=== PATIENT | female | born 1990 | race Caucasian/White ===

== ENCOUNTER 2018-06-28 04:28 | Inpatient (IN) | payer BC, MEDICAID ==
[2018-06-28] MEDS ORDERED: Sodium Chloride 0.9% 10 ML Syringe FLUSH PRN (04:39)
[2018-06-28] MEDS ORDERED: Carboprost Tromethamine 250 MCG/1 ML Amp IM PRN (04:39)
[2018-06-28] MEDS ORDERED: Water For Irrigation,Sterile 1,000 ML Container IRR PRN (04:39)
[2018-06-28] MEDS ORDERED: Butorphanol 1 MG/ML SDV IVPUSH PRN (04:39)
[2018-06-28] MEDS ORDERED: Lidocaine 1% 50 ML MDV INJECT PRN (04:39)
[2018-06-28] MEDS ORDERED: Methylergonovine 0.2 MG/1 ML Amp IM PRN (04:39)
[2018-06-28] MEDS ORDERED: Terbutaline 1 MG/ML SDV SUBCUT PRN (04:39)
[2018-06-28] MEDS ORDERED: Misoprostol 200 MCG Tab PO PRN (04:39)
[2018-06-28] MEDS ORDERED: Sodium Chloride 0.9% 2.5 ML Syringe FLUSH PRN (04:39)
[2018-06-28] MEDS ORDERED: Tranexamic Acid 1,000 MG in Sodium Chloride 0.9% 100 ML IV PRN (04:39)
[2018-06-28] MEDS ORDERED: Oxytocin/0.9 % Sodium Chloride 30 UNIT/500 ML BAG IV SCH ×2 (04:45)
[2018-06-28] MEDS ORDERED: Misoprostol 25 MCG (1/4 of 100 MCG) Tab VAG PRN (05:30)
[2018-06-28] MEDS ORDERED: Labetalol 100 MG Tab PO SCH (09:00)
[2018-06-28] MEDS: Labetalol 100 MG Tab PO SCH ×2 (09:07→21:48)
[2018-06-28] MEDS: Lactated Ringers 1,000 ML IV SCH ×2 (11:45→17:51)
[2018-06-28] MEDS: Nalbuphine 10 MG/1 ML Vial IVPUSH PRN ×2 (13:33→17:48)
--- NOTE | 2018-06-28 18:36 | PCM.PREANE ---
Preanesthetic Assessment - Anesthesia/Transfusion/Family Hx Anesthesia History: Prior Anesthesia Without Reaction Transfusion History: No Prior Transfusion(s) - Review of Systems General: No Symptoms Pulmonary: No Symptoms Cardiovascular: No Symptoms Gastrointestinal: No Symptoms Neurological: No Symptoms Other: Reports: None - Physical Assessment Pulse: 84 Blood Pressure: 118/75 Vital Signs: Last Vital Signs Temp Pulse 84 06/28/18 09:07 Resp BP 118/75 06/28/18 09:07 Pulse Ox Height: 5 ft 2.5 in Weight: 78.471 kg ASA Class: 2 Mental Status: Alert & Oriented x3 Airway Class: Mallampati = 2 Dentition: Reports: Normal Dentition Thyro-Mental Finger Breadths: 3 Mouth Opening Finger Breadths: 3 ROM/Head Extension: Full Lungs: Clear to Auscultation, Normal Respiratory Effort Cardiovascular: Regular Rate, Regular Rhythm - Lab Values: Laboratory Last Values WBC 10.03 K/uL (4.0-11.0) 06/28/18 06:30 RBC 3.68 M/uL (4.30-5.90) L 06/28/18 06:30 Hgb 10.7 g/dL (12.0-16.0) L 06/28/18 06:30 Hct 32.9 % (36.0-46.0) L 06/28/18 06:30 MCV 89.4 fL (80.0-98.0) 06/28/18 06:30 MCH 29.1 pg (27.0-32.0) 06/28/18 06:30 MCHC 32.5 g/dL (31.0-37.0) 06/28/18 06:30 RDW Std Deviation 41.7 fl (28.0-62.0) 06/28/18 06:30 RDW Coeff of David 13 % (11.0-15.0) 06/28/18 06:30 Plt Count 297 K/uL (150-400) 06/28/18 06:30 MPV 9.90 fL (7.40-12.00) 06/28/18 06:30 Nucleated RBC % 0.0 /100WBC 06/28/18 06:30 Nucleated RBCs # 0 K/uL 06/28/18 06:30 Blood Type A POSITIVE 06/28/18 06:30 Antibody Screen NEGATIVE 06/28/18 06:30 - Allergies Allergies/Adverse Reactions: Allergies Allergy/AdvReac Type Severity Reaction Status Date / Time NSAIDS (Non-Steroidal Allergy Swollen Verified 07/07/14 16:54 Anti-Inflamma Eyes - Acknowledgements Anesthesia Type Planned: Epidural Pt an Appropriate Candidate for the Planned Anesthesia: Yes Alternatives and Risks of Anesthesia Discussed w Pt/Guardian: Yes Pt/Guardian Understands and Agrees with Anesthesia Plan: Yes PreAnesthesia Questionnaire HEENT History: Reports: Cataract, Impaired Vision Cardiovascular History: Reports: Hypertension Respiratory History: Reports: None Gastrointestinal History: Reports: None Genitourinary History: Reports: Other (See Below) Other Genitourinary History: hydronephrosis 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 CATCHER History: Reports: Hyperemesis, : 5 Para: 3 LMP (Approximate): Musculoskeletal History: Reports: None Neurological History: Reports: Concussion, Migraines Psychiatric History: Reports: Anxiety, Panic Attack Endocrine/Metabolic History: Reports: Obesity/BMI 30+ Hematologic History: Reports: Anemia Immunologic History: Reports: None Oncologic (Cancer) History: Reports: None Dermatologic History: Reports: None - Infectious Disease History Infectious Disease History: Reports: Chicken Pox, Influenza - Past Surgical History HEENT Surgical History: Reports: Oral Surgery Female Surgical History: Reports: Other (See Below) Other Female Surgeries/Procedures: cyst removed laparoscopy - SUBSTANCE USE Smoking Status *Q: Former Smoker Tobacco Use Within Last Twelve Months: Cigarettes Second Hand Smoke Exposure: No Recreational Drug Use History: No - HOME MEDS Home Medications: Home Meds Acetaminophen [Tylenol Extra Strength] 1,000 mg PO Q4H PRN #30 tab 10/15/14 [Rx] Escitalopram Oxalate 10 mg PO DAILY 06/15/18 [History] Famotidine [Pepcid] 20 mg PO DAILY 06/15/18 [History] Labetalol [Normodyne] 200 mg PO BID 06/15/18 [History] Ondansetron [Zofran ODT] 4 mg PO TID PRN 06/15/18 [History] hydrOXYzine pamoate [Vistaril] 50 mg PO BEDTIME 06/15/18 [History] Iron Polysaccharide Complex [Poly-Iron] 1 cap PO DAILY 06/28/18 [History] - CURRENT (IN HOUSE) MEDS Current Meds: Current Medications Butorphanol Tartrate (Stadol) 1 mg IVPUSH Q1H PRN PRN Reason: Pain Carboprost Tromethamine (Hemabate Ds) 250 mcg IM ASDIRECTED PRN PRN Reason: Post Hemorrhage Lactated Ringer's (Ringers, Lactated) 1,000 mls @ 150 mls/hr IV ASDIRECTED [facility] Last Admin: 06/28/18 17:51 Dose: 150 mls/hr Oxytocin/Sodium Chloride (Oxytocin 30 Unit/500 Ml-Ns) 30 unit in 500 mls @ 250 mls/hr IV TITRATE [facility] Oxytocin/Sodium Chloride (Oxytocin 30 Unit/500 Ml-Ns) 30 unit in 500 mls @ 2 mls/hr IV TITRATE [facility]; Protocol Last Titration: 06/28/18 18:00 Dose: 24 munits/min, 24 mls/hr Tranexamic Acid 1,000 mg/ (Sodium Chloride) 110 mls @ 660 mls/hr IV ONETIME PRN PRN Reason: Bleeding Labetalol HCl (Normodyne) 200 mg PO BID [facility] Last Admin: 06/28/18 09:07 Dose: 200 mg Lidocaine HCl (Xylocaine 1%) 50 ml INJECT .ONCE PRN PRN Reason: Laceration repair Methylergonovine Maleate (Methergine) 0.2 mg IM ASDIRECTED PRN PRN Reason: Post Hemorrhage Misoprostol (Cytotec) 200 mcg PO .ONCE PRN PRN Reason: Post Hemorrhage Misoprostol (Cytotec) 25 mcg VAG Q4H PRN PRN Reason: Cervical Ripening Last Admin: 06/28/18 07:45 Dose: 25 mcg Nalbuphine HCl (Nubain) 10 mg IVPUSH Q1H PRN PRN Reason: Pain (severe 7-10) Last Admin: 06/28/18 17:48 Dose: 10 mg Sodium Chloride (Saline Flush) 10 ml FLUSH ASDIRECTED PRN PRN Reason: Keep Vein Open Sodium Chloride (Saline Flush) 2.5 ml FLUSH ASDIRECTED PRN PRN Reason: Keep Vein Open Sterile Water (Sterile Water For Irrigation) 1,000 ml IRR ASDIRECTED PRN PRN Reason: delivery Terbutaline Sulfate (Brethine) 0.25 mg SUBCUT ASDIRECTED PRN PRN Reason: Tacysystole Discontinued Medications Labetalol HCl (Normodyne) 400 mg PO BID [facility]
--- NOTE | 2018-06-28 22:07 | PCM.DEL ---
L & D Note - General Info Date of Service: 06/28/18 Mother's Due Date: 07/08/18 - Delivery Note Labor: Induced by Oxytocin Cervical Ripening Method: Misoprostil Delivery Outcome: Livebirth Infant Delivery Method: Spontaneous Vaginal Delivery-Single Presentation: Left Occiput Anterior (CASEY) Nuchal Cord: None Prep: Other Anesthesia Type: None Amniotic Fluid Description: Clear Episiotomy Type: None Laceration: None Placenta: Intact, Spontaneous Cord: 3 Vessels Score 1 min: 8 Score 5 min: 8 Second Stage Interventions: Reports: Encouragement Given, Pushing, Pulls Own Legs Back - General Info Date of Service: 06/28/18 - Patient Data Vitals - Most Recent: Last Vital Signs Temp Pulse 76 06/28/18 21:48 Resp BP 124/72 06/28/18 21:48 Pulse Ox Weight - Most Recent: 78.471 kg Lab Results Last 24 Hours: Laboratory Results - last 24 hr 06/28/18 06/28/18 Range/Units 06:30 06:30 WBC 10.03 (4.0-11.0) K/uL RBC 3.68 L (4.30-5.90) M/uL Hgb 10.7 L (12.0-16.0) g/dL Hct 32.9 L (36.0-46.0) % MCV 89.4 (80.0-98.0) fL MCH 29.1 (27.0-32.0) pg MCHC 32.5 (31.0-37.0) g/dL RDW Std Deviation 41.7 (28.0-62.0) fl RDW Coeff of David 13 (11.0-15.0) % Plt Count 297 (150-400) K/uL MPV 9.90 (7.40-12.00) fL Nucleated RBC % 0.0 /100WBC Nucleated RBCs # 0 K/uL Blood Type A POSITIVE Antibody Screen NEGATIVE Med Orders - Current: Current Medications Butorphanol Tartrate (Stadol) 1 mg IVPUSH Q1H PRN PRN Reason: Pain Carboprost Tromethamine (Hemabate Ds) 250 mcg IM ASDIRECTED PRN PRN Reason: Post Hemorrhage Lactated Ringer's (Ringers, Lactated) 1,000 mls @ 150 mls/hr IV ASDIRECTED [facility] Last Admin: 06/28/18 17:51 Dose: 150 mls/hr Oxytocin/Sodium Chloride (Oxytocin 30 Unit/500 Ml-Ns) 30 unit in 500 mls @ 250 mls/hr IV TITRATE [facility] Oxytocin/Sodium Chloride (Oxytocin 30 Unit/500 Ml-Ns) 30 unit in 500 mls @ 2 mls/hr IV TITRATE [facility]; Protocol Last Titration: 06/28/18 18:00 Dose: 24 munits/min, 24 mls/hr Tranexamic Acid 1,000 mg/ (Sodium Chloride) 110 mls @ 660 mls/hr IV ONETIME PRN PRN Reason: Bleeding Labetalol HCl (Normodyne) 200 mg PO BID [facility] Last Admin: 06/28/18 21:48 Dose: 200 mg Lidocaine HCl (Xylocaine 1%) 50 ml INJECT .ONCE PRN PRN Reason: Laceration repair Methylergonovine Maleate (Methergine) 0.2 mg IM ASDIRECTED PRN PRN Reason: Post Hemorrhage Misoprostol (Cytotec) 200 mcg PO .ONCE PRN PRN Reason: Post Hemorrhage Misoprostol (Cytotec) 25 mcg VAG Q4H PRN PRN Reason: Cervical Ripening Last Admin: 06/28/18 07:45 Dose: 25 mcg Nalbuphine HCl (Nubain) 10 mg IVPUSH Q1H PRN PRN Reason: Pain (severe 7-10) Last Admin: 06/28/18 17:48 Dose: 10 mg Sodium Chloride (Saline Flush) 10 ml FLUSH ASDIRECTED PRN PRN Reason: Keep Vein Open Sodium Chloride (Saline Flush) 2.5 ml FLUSH ASDIRECTED PRN PRN Reason: Keep Vein Open Sterile Water (Sterile Water For Irrigation) 1,000 ml IRR ASDIRECTED PRN PRN Reason: delivery Terbutaline Sulfate (Brethine) 0.25 mg SUBCUT ASDIRECTED PRN PRN Reason: Tacysystole Discontinued Medications Fentanyl/Bupivacaine HCl ([id number]-Fnmbt-Rv 2 Mcg/Ml-0.125%) Confirm Administered Dose 100 mls @ as directed EP .STK-MED ONE Stop: 06/28/18 18:42 Labetalol HCl (Normodyne) 400 mg PO BID [facility] - Problem List & Annotations (1) Hypertension complicating , delivered-current hospitalization SNOMED Code(s): 50920004 Code(s): O16.4 - UNSPECIFIED MATERNAL HYPERTENSION, COMPLICATING CHILDBIRTH Status: Acute Current Visit: Yes (2) Vaginal delivery SNOMED Code(s): 132082589 Code(s): O80 - ENCOUNTER FOR FULL-TERM UNCOMPLICATED DELIVERY Status: Acute Current Visit: No - Problem List Review Problem List Initiated/Reviewed/Updated: Yes - My Orders Last 24 Hours: My Active Orders 06/28/18 04:39 Patient Status [ADT] Routine Bedrest Bathroom Privileges [RC] ASDIRECTED Communication Order [RC] ASDIRECTED Communication Order [RC] ASDIRECTED Communication Order [RC] ASDIRECTED Heart Tones [RC] CONTINUOUS Non Stress Test [RC] PER UNIT ROUTINE May Shower [RC] ASDIRECTED Notify Provider [RC] PRN Notify Provider [RC] PRN Notify Provider [RC] PRN Notify Provider [RC] STAT Oxygen Therapy [RC] ASDIRECTED Up ad Rhina [RC] ASDIRECTED Vaginal Exam [RC] PRN Vaginal Exam [RC] PRN Vital Signs [RC] PER UNIT ROUTINE Vital Signs [RC] PER UNIT ROUTINE Butorphanol [Stadol] 1 mg IVPUSH Q1H PRN Carboprost Tromethamine [Hemabate DS] 250 mcg IM ASDIRECTED PRN Lidocaine 1% [Xylocaine 1%] 50 ml INJECT .ONCE PRN Methylergonovine [Methergine] 0.2 mg IM ASDIRECTED PRN Nalbuphine [Nubain] 10 mg IVPUSH Q1H PRN Sodium Chloride 0.9% [Saline Flush] 10 ml FLUSH ASDIRECTED PRN Sodium Chloride 0.9% [Saline Flush] 2.5 ml FLUSH ASDIRECTED PRN Terbutaline [Brethine] 0.25 mg SUBCUT ASDIRECTED PRN Tranexamic Acid [Cyklokapron] 1,000 mg Sodium Chloride 0.9% [Normal Saline] 100 ml IV ONETIME Water For Irrigation,Sterile [Sterile Water for Irrigation] 1,000 ml IRR ASDIRECTED PRN miSOPROStol [Cytotec] 200 mcg PO .ONCE PRN Scalp Electrode [WOMSER] Per Unit Routine Peripheral IV Insertion Adult [OM.PC] Routine Resuscitation Status Routine 06/28/18 04:45 Lactated Ringers [Ringers, Lactated] 1,000 ml IV ASDIRECTED Oxytocin/0.9 % Sodium Chloride [Oxytocin 30 Unit/500 ML-NS] 30 unit in 500 ml IV TITRATE Oxytocin/0.9 % Sodium Chloride [Oxytocin 30 Unit/500 ML-NS] 30 unit in 500 ml IV TITRATE Medication Administration Instruction [OM.PC] Q3H 06/28/18 05:30 miSOPROStol [Cytotec] 25 mcg VAG Q4H PRN 06/28/18 09:00 Labetalol [Normodyne] 200 mg PO BID
[2018-06-29] MEDS ORDERED: Lanolin 100% Cream 7 GM Tube TOP PRN (00:23)
[2018-06-29] MEDS ORDERED: Docusate Sodium 100 MG Cap PO PRN (00:23)
[2018-06-29] MEDS ORDERED: Benzocaine/Menthol 20%-0.5% Spray 78 GM Cannister TOP PRN (00:23)
[2018-06-29] MEDS ORDERED: Bisacodyl 10 MG Supp RECTAL PRN (00:23)
[2018-06-29] MEDS ORDERED: Witch Hazel Medicated Pads 40/Jar TOP PRN (00:23)
[2018-06-29] MEDS: Acetaminophen 500 MG Tab PO PRN ×4 (00:43→20:01)
[2018-06-29] MEDS: oxyCODONE 5 MG Tab PO PRN ×6 (01:32→20:11)
--- NOTE | 2018-06-29 07:08 | PCM.PNPP ---
- General Info Date of Service: 06/29/18 Functional Status: Reports: Pain Controlled (with oxycodone), Tolerating Diet, Ambulating, Urinating - Review of Systems General: Denies: Fever, Weakness Pulmonary: Denies: Shortness of Breath Cardiovascular: Denies: Chest Pain, Palpitations, Lightheadedness Gastrointestinal: Reports: Abdominal Pain (cramping is intense, oxycodone helps) . Denies: Diarrhea, Nausea, Vomiting Genitourinary: Denies: Flank Pain Skin: Reports: No Symptoms Neurological: Reports: No Symptoms - General Info Date of Service: 06/29/18 - Patient Data Vital Signs - Most Recent: Last Vital Signs Temp 36.7 C 06/29/18 05:21 Pulse 69 06/29/18 05:21 Resp 16 06/29/18 05:21 BP 120/78 06/29/18 05:21 Pulse Ox 98 06/29/18 05:21 Weight - Most Recent: 78.471 kg Lab Results - Last 24 Hours: Laboratory Results - last 24 hr 06/28/18 06/29/18 Range/Units 06:30 06:45 Hgb 10.2 L (12.0-16.0) g/dL Hct 31.5 L (36.0-46.0) % Blood Type A POSITIVE Antibody Screen NEGATIVE Med Orders - Current: Current Medications Acetaminophen (Tylenol Extra Strength) 500 mg PO Q4H PRN PRN Reason: Pain Last Admin: 06/29/18 06:00 Dose: 500 mg Acetaminophen (Tylenol Extra Strength) 1,000 mg PO Q4H PRN PRN Reason: Pain Last Admin: 06/29/18 00:43 Dose: 1,000 mg Benzocaine/Menthol (Dermoplast Pain Relief 20%-0.5% [place]) 78 gm TOP ASDIRECTED PRN PRN Reason: Perineal Comfort Measure Bisacodyl (Dulcolax) 10 mg RECTAL .ONCE PRN PRN Reason: Constipation Docusate Sodium (Colace) 100 mg PO BID PRN PRN Reason: Constipation Emollient Ointment (Lansinoh Hpa) 0 gm TOP ASDIRECTED PRN PRN Reason: Sore Nipples Labetalol HCl (Normodyne) 200 mg PO BID [facility] Last Admin: 06/28/18 21:48 Dose: 200 mg Oxycodone HCl (Oxycodone) 5 mg PO Q2H PRN PRN Reason: Pain Last Admin: 06/29/18 06:00 Dose: 5 mg Witch Ashlee (Tucks) 1 pad TOP ASDIRECTED PRN PRN Reason: comfort care Discontinued Medications Butorphanol Tartrate (Stadol) 1 mg IVPUSH Q1H PRN PRN Reason: Pain Carboprost Tromethamine (Hemabate Ds) 250 mcg IM ASDIRECTED PRN PRN Reason: Post Hemorrhage Lactated Ringer's (Ringers, Lactated) 1,000 mls @ 150 mls/hr IV ASDIRECTED [facility]ERNON Last Admin: 06/28/18 17:51 Dose: 150 mls/hr Oxytocin/Sodium Chloride (Oxytocin 30 Unit/500 Ml-Ns) 30 unit in 500 mls @ 250 mls/hr IV TITRATE [facility] Oxytocin/Sodium Chloride (Oxytocin 30 Unit/500 Ml-Ns) 30 unit in 500 mls @ 2 mls/hr IV TITRATE [facility]; Protocol Last Titration: 06/28/18 18:00 Dose: 24 munits/min, 24 mls/hr Tranexamic Acid 1,000 mg/ (Sodium Chloride) 110 mls @ 660 mls/hr IV ONETIME PRN PRN Reason: Bleeding Fentanyl/Bupivacaine HCl (Lnslxckj-Calmr-Hz 2 Mcg/Ml-0.125%) Confirm Administered Dose 100 mls @ as directed EP .STK-MED ONE Stop: 06/28/18 18:42 Labetalol HCl (Normodyne) 400 mg PO BID [facility] Lidocaine HCl (Xylocaine 1%) 50 ml INJECT .ONCE PRN PRN Reason: Laceration repair Methylergonovine Maleate (Methergine) 0.2 mg IM ASDIRECTED PRN PRN Reason: Post Hemorrhage Misoprostol (Cytotec) 200 mcg PO .ONCE PRN PRN Reason: Post Hemorrhage Misoprostol (Cytotec) 25 mcg VAG Q4H PRN PRN Reason: Cervical Ripening Last Admin: 06/28/18 07:45 Dose: 25 mcg Nalbuphine HCl (Nubain) 10 mg IVPUSH Q1H PRN PRN Reason: Pain (severe 7-10) Last Admin: 06/28/18 17:48 Dose: 10 mg Sodium Chloride (Saline Flush) 10 ml FLUSH ASDIRECTED PRN PRN Reason: Keep Vein Open Sodium Chloride (Saline Flush) 2.5 ml FLUSH ASDIRECTED PRN PRN Reason: Keep Vein Open Sterile Water (Sterile Water For Irrigation) 1,000 ml IRR ASDIRECTED PRN PRN Reason: delivery Terbutaline Sulfate (Brethine) 0.25 mg SUBCUT ASDIRECTED PRN PRN Reason: Tacysystole - Infant Interaction Support Person: - Recovery Exam Fundal Tone: Firm Fundal Level: At Umbilicus Fundal Placement: Midline Lochia Amount: Scant Lochia Color: Rubra/Red Perineum Description: Intact, Minimal Bruising/Swelling Episiotomy/Laceration: None Bladder Status: Voiding Urinary Elimination: Voided - Exam General: Alert, Oriented Lungs: Normal Respiratory Effort Cardiovascular: Regular Rate, Regular Rhythm GI/Abdominal Exam: Normal Bowel Sounds, Soft Extremities: Pedal Edema (trace). No: Deena's Sign Skin: Warm, Dry, Intact Psy/Mental Status: Alert, Normal Affect - Problem List & Annotations (1) Hypertension complicating , delivered-current hospitalization SNOMED Code(s): 44662380 Code(s): O16.4 - UNSPECIFIED MATERNAL HYPERTENSION, COMPLICATING CHILDBIRTH Status: Acute Current Visit: Yes (2) Vaginal delivery SNOMED Code(s): 490356393 Code(s): O80 - ENCOUNTER FOR FULL-TERM UNCOMPLICATED DELIVERY Status: Acute Current Visit: No - Problem List Review Problem List Initiated/Reviewed/Updated: Yes - Assessment Assessment:: PPD 1 status post Chronic hypertension - Plan Plan:: BPs are stable, continue labetalol. Continue cares.
[2018-06-29] MEDS: Labetalol 100 MG Tab PO SCH ×2 (09:00→20:01)
--- NOTE | 2018-06-29 13:55 | PCM48HPAN ---
Post Anesthesia Note - EVALUATION WITHIN 48HRS OF ANESTHETIC Vital Signs in Normal Range: Yes Patient Participated in Evaluation: Yes Respiratory Function Stable: Yes Airway Patent: Yes Cardiovascular Function Stable: Yes Hydration Status Stable: Yes Pain Control Satisfactory: Yes Nausea and Vomiting Control Satisfactory: Yes Mental Status Recovered: Yes Pulse Rate: 85 Resp Rate: 17 Blood Pressure: 126/76
[2018-06-30] MEDS: oxyCODONE 5 MG Tab PO PRN ×4 (01:13→11:26)
[2018-06-30] MEDS: Acetaminophen 500 MG Tab PO PRN ×3 (01:14→10:20)
[2018-06-30] MEDS: Labetalol 100 MG Tab PO SCH (09:01)
[2018-06-30 09:05] VITALS: BP 118/75
--- NOTE | 2018-06-30 10:24 | PCM.PNPP ---
- General Info Date of Service: 06/30/18 Functional Status: Reports: Pain Controlled, Tolerating Diet, Ambulating, Urinating - Review of Systems General: Denies: Fever, Weakness, Fatigue Pulmonary: Denies: Shortness of Breath Cardiovascular: Denies: Chest Pain, Palpitations, Lightheadedness Gastrointestinal: Denies: Abdominal Pain, Nausea, Vomiting Genitourinary: Denies: Dysuria, Frequency, Flank Pain Skin: Reports: No Symptoms Neurological: Reports: No Symptoms Psychiatric: Reports: No Symptoms - General Info Date of Service: 06/30/18 - Patient Data Vital Signs - Most Recent: Last Vital Signs Temp 36.3 C 06/30/18 04:00 Pulse 77 06/30/18 09:01 Resp 16 06/30/18 04:00 BP 118/75 06/30/18 09:01 Pulse Ox 99 06/30/18 04:00 Weight - Most Recent: 78.471 kg Med Orders - Current: Current Medications Acetaminophen (Tylenol Extra Strength) 500 mg PO Q4H PRN PRN Reason: Pain Last Admin: 06/30/18 06:21 Dose: 500 mg Acetaminophen (Tylenol Extra Strength) 1,000 mg PO Q4H PRN PRN Reason: Pain Last Admin: 06/29/18 20:01 Dose: 1,000 mg Benzocaine/Menthol (Dermoplast Pain Relief 20%-0.5% [place]) 78 gm TOP ASDIRECTED PRN PRN Reason: Perineal Comfort Measure Bisacodyl (Dulcolax) 10 mg RECTAL .ONCE PRN PRN Reason: Constipation Docusate Sodium (Colace) 100 mg PO BID PRN PRN Reason: Constipation Emollient Ointment (Lansinoh Hpa) 0 gm TOP ASDIRECTED PRN PRN Reason: Sore Nipples Last Admin: 06/30/18 08:36 Dose: 7 gm Labetalol HCl (Normodyne) 200 mg PO BID [facility] Last Admin: 06/30/18 09:01 Dose: 200 mg Oxycodone HCl (Oxycodone) 5 mg PO Q2H PRN PRN Reason: Pain Last Admin: 06/30/18 09:10 Dose: 5 mg Witch Ashlee (Tucks) 1 pad TOP ASDIRECTED PRN PRN Reason: comfort care Discontinued Medications Butorphanol Tartrate (Stadol) 1 mg IVPUSH Q1H PRN PRN Reason: Pain Carboprost Tromethamine (Hemabate Ds) 250 mcg IM ASDIRECTED PRN PRN Reason: Post Hemorrhage Lactated Ringer's (Ringers, Lactated) 1,000 mls @ 150 mls/hr IV ASDIRECTED [facility] Last Admin: 06/28/18 17:51 Dose: 150 mls/hr Oxytocin/Sodium Chloride (Oxytocin 30 Unit/500 Ml-Ns) 30 unit in 500 mls @ 250 mls/hr IV TITRATE [facility] Oxytocin/Sodium Chloride (Oxytocin 30 Unit/500 Ml-Ns) 30 unit in 500 mls @ 2 mls/hr IV TITRATE [facility]; Protocol Last Titration: 06/28/18 18:00 Dose: 24 munits/min, 24 mls/hr Tranexamic Acid 1,000 mg/ (Sodium Chloride) 110 mls @ 660 mls/hr IV ONETIME PRN PRN Reason: Bleeding Fentanyl/Bupivacaine HCl (Qkuzpcpq-Rtbxu-Kg 2 Mcg/Ml-0.125%) Confirm Administered Dose 100 mls @ as directed EP .STK-MED ONE Stop: 06/28/18 18:42 Labetalol HCl (Normodyne) 400 mg PO BID [facility] Lidocaine HCl (Xylocaine 1%) 50 ml INJECT .ONCE PRN PRN Reason: Laceration repair Methylergonovine Maleate (Methergine) 0.2 mg IM ASDIRECTED PRN PRN Reason: Post Hemorrhage Misoprostol (Cytotec) 200 mcg PO .ONCE PRN PRN Reason: Post Hemorrhage Misoprostol (Cytotec) 25 mcg VAG Q4H PRN PRN Reason: Cervical Ripening Last Admin: 06/28/18 07:45 Dose: 25 mcg Nalbuphine HCl (Nubain) 10 mg IVPUSH Q1H PRN PRN Reason: Pain (severe 7-10) Last Admin: 06/28/18 17:48 Dose: 10 mg Sodium Chloride (Saline Flush) 10 ml FLUSH ASDIRECTED PRN PRN Reason: Keep Vein Open Sodium Chloride (Saline Flush) 2.5 ml FLUSH ASDIRECTED PRN PRN Reason: Keep Vein Open Sterile Water (Sterile Water For Irrigation) 1,000 ml IRR ASDIRECTED PRN PRN Reason: delivery Terbutaline Sulfate (Brethine) 0.25 mg SUBCUT ASDIRECTED PRN PRN Reason: Tacysystole - Interaction Infant Disposition, : [place] in Room with Family Infant Interaction: Holding Infant Feeding: Breastfed Infant; Nursed Well Support Person: - Recovery Exam Fundal Tone: Firm Fundal Level: 2 Fingerbreadths Below Umbilicus Fundal Placement: Midline Lochia Amount: Scant Lochia Color: Rubra/Red Perineum Description: Intact, Minimal Bruising/Swelling Episiotomy/Laceration: None Bladder Status: Voiding Urinary Elimination: Voided - Exam General: Alert, Oriented Lungs: Normal Respiratory Effort Cardiovascular: Regular Rate, Regular Rhythm GI/Abdominal Exam: Normal Bowel Sounds, Soft Extremities: No: Pedal Edema, Deena's Sign Skin: Warm, Dry, Intact Psy/Mental Status: Alert, Normal Affect - Problem List & Annotations (1) Hypertension complicating , delivered-current hospitalization SNOMED Code(s): 85335900 Code(s): O16.4 - UNSPECIFIED MATERNAL HYPERTENSION, COMPLICATING CHILDBIRTH Status: Acute Current Visit: Yes (2) Vaginal delivery SNOMED Code(s): 744913253 Code(s): O80 - ENCOUNTER FOR FULL-TERM UNCOMPLICATED DELIVERY Status: Acute Current Visit: No - Problem List Review Problem List Initiated/Reviewed/Updated: Yes - My Orders Last 24 Hours: My Active Orders 06/30/18 10:17 Ready for Discharge [RC] PER UNIT ROUTINE - Assessment Assessment:: PPD 2 status post Chronic hypertension - Plan Plan:: Patient is feeling well, BPs are normalized. Continue labetalol. Discharge to home today. Follow up at [facility] 1 week for BP check. Follow up at [facility] 6 weeks for PP visit. Discharge instructions reviewed. Infection and bleeding warnings reviewed.
--- NOTE | 2018-07-01 09:33 | OR ---
SURGEON: Bettina Cardona M.D. DATE OF PROCEDURE: 06/28/2018 PREOPERATIVE DIAGNOSES: 1. A 38 and 4/7 weeks' intrauterine . 2. Chronic hypertension, on medication. 3. Hydronephrosis of . POSTOPERATIVE DIAGNOSES: 1. A 38 and 4/7 weeks' intrauterine . 2. Chronic hypertension, on medication. 3. Hydronephrosis of . PROCEDURE PERFORMED: Cytotec and Pitocin induction of labor, term spontaneous vaginal delivery. ANESTHESIA: Epidural. ESTIMATED BLOOD LOSS: Less than 200 mL. FINDINGS: Live born female. score 8 and 8. Weight 3330 g. Placenta spontaneous, Schultze intact with 3 vessels. Perineum intact. BRIEF HISTORY: This is a 27-year-old female. She is G5, P3-0-1-3. She presents at 38 and 4/7 weeks' gestation for induction of labor. Initially 1 cm, 50%, and -3 station. She received a single dose of Cytotec. She changed to 2 cm, 50%. She received Pitocin. She is group B strep negative. Artificial rupture of membranes was performed, and Pitocin was increased above 20 milliunits per minute. Intrauterine pressure catheter was placed. Category 1 heart tones continued. She received an epidural for pain control. She progressed to complete. DESCRIPTION OF PROCEDURE: With the patient in dorsal lithotomy position, the patient pushed over a 10- minute time period to a 5+ station. At which time, the head was delivered spontaneously and atraumatically over the perineum with support with subsequent delivery of the 's shoulders and body without any difficulty. The was bulb suctioned by nose and mouth. Cord was clamped x2 and cut. The infant was handed to the nurse in attendance at delivery. The infant was a liveborn female. score 8 and 8. Weight is 3330 g. Cord blood was collected for cord ABGs as well as routine cord blood sampling. Pitocin was initiated after delivery of the to assist with delivery of the placenta, which was delivered spontaneously, Schultze intact with 3 vessels. Upon inspection of pelvis and perineum, there were no periurethral, vaginal sidewall, cervical, rectal, or perineal lacerations. EBL was less than 200 mL. There were no known complications. Mother and are in LDRP in good condition. LIANG / GREGORIA /[id number]
== END 2018-06-30 12:05 | disposition home or self-care (01) | DRG 560 ==
LOC: MW.OBCHECK 04:28 → MW.OB 04:32 → MW.OBCHECK 21:54 → MW.OB 21:55 → OBSVTOIN 21:55 → MW.OB 06-29 01:50
PROVIDERS: ADMIT Obstetrics & Gynecology; ATTEND Obstetrics & Gynecology
PROC: 10E0XZZ Delivery of Products of Conception, External Approach (ICD-10-PCS; principal; 2018-06-28)
PROC: 3E0P7VZ Introduction of Hormone into Female Reproductive, Via Natural or Artificial Opening (ICD-10-PCS; principal; 2018-06-28)
PROC: 10H07YZ Insertion of Other Device into Products of Conception, Via Natural or Artificial Opening (ICD-10-PCS; principal; 2018-06-28)
PROC: 6A550ZT Pheresis of Cord Blood Stem Cells, Single (ICD-10-PCS; principal; 2018-06-28)
PROC: 10907ZC Drainage of Amniotic Fluid, Therapeutic from Products of Conception, Via Natural or Artificial Opening (ICD-10-PCS; principal; 2018-06-28)
PROC: 3E033VJ Introduction of Other Hormone into Peripheral Vein, Percutaneous Approach (ICD-10-PCS; principal; 2018-06-28)
PROC: 3E0R3BZ Introduction of Anesthetic Agent into Spinal Canal, Percutaneous Approach (ICD-10-PCS; 2018-06-28)
PROC: 00HU33Z Insertion of Infusion Device into Spinal Canal, Percutaneous Approach (ICD-10-PCS; 2018-06-28)
DX: O10.92 Unspecified pre-existing hypertension complicating childbirth (principal); Z37.0 Single live birth; Z79.899 Other long term (current) drug therapy; Z88.8 Allergy status to other drugs, medicaments and biological substances; Z3A.38 38 weeks gestation of pregnancy; O99.344 Other mental disorders complicating childbirth; F34.1 Dysthymic disorder; O75.89 Other specified complications of labor and delivery; M54.9 Dorsalgia, unspecified; O99.02 Anemia complicating childbirth; F41.9 Anxiety disorder, unspecified; Z91.018 Allergy to other foods; Z87.891 Personal history of nicotine dependence; O99.214 Obesity complicating childbirth; E66.9 Obesity, unspecified; Z68.31 Body mass index [BMI] 31.0-31.9, adult
CPT/HCPCS: 36415; 51702; 59025; 59409; 85014; 85018; 85027; 86850; 86900; 86901; A9270-GY; J2300; J2590; J7120

== ENCOUNTER 2019-12-30 13:40 | Emergency (ER) | payer BC, MEDICAID ==
--- NOTE | 2019-12-30 13:43 | EDM.PDOC ---
ED HPI GENERAL MEDICAL PROBLEM - General Chief Complaint: Abdominal Pain Stated Complaint: RT SIDE PAIN Time Seen by Provider: 12/30/19 13:43 Source of Information: Reports: Patient History Limitations: Reports: No Limitations - History of Present Illness INITIAL COMMENTS - FREE TEXT/NARRATIVE: Patient is a 29-year-old female who is complaining of having right flank pain is been gone going for the past week but is worse since this morning. She rates the pain is 8 out of 10 intensity states it radiates to her back. Patient is nauseous but denies any vomiting and is currently having diarrhea. She denies any fever or shaking chills. She denies any dysuria or hematuria. Patient has not had similar symptoms in the past though she does have a history of both kidney stones and kidney infections. Patient's only surgery is a ovarian cystic surgery. She has taken nothing this morning for pain symptoms. Patient's last menstrual period was 2 weeks ago and normal. She denies any vaginal discharge. The pain is worse with movement. Duration: Week(s): (Two) Location: Reports: Abdomen, Back Quality: Reports: Ache, Sharp Severity: Severe Improves with: Reports: None Worsens with: Reports: Movement Associated Symptoms: Reports: No Other Symptoms right abdomen, flank Pain Score (Numeric/FACES): 8 - Related Data Allergies Allergy/AdvReac Type Severity Reaction Status Date / Time NSAIDS (Non-Steroidal Allergy Swollen Verified 12/30/19 13:52 Anti-Inflamma Eyes Home Meds: Home Meds Acetaminophen [Tylenol Extra Strength] 1,000 mg PO Q4H PRN #30 tab 10/15/14 [Rx] hydrOXYzine pamoate [Vistaril] 50 mg PO BEDTIME PRN 06/15/18 [History] Desvenlafaxine [Desvenlafaxine ER] 100 mg PO DAILY 12/30/19 [History] Doxepin HCl [Doxepin] 50 mg PO BEDTIME 12/30/19 [History] Propranolol [Inderal LA] 1 tab PO DAILY 12/30/19 [History] busPIRone HCl [busPIRone] 30 mg PO BID 12/30/19 [History] Past Medical History HEENT History: Reports: Cataract, Impaired Vision Cardiovascular History: Reports: Hypertension Respiratory History: Reports: None Gastrointestinal History: Reports: None Genitourinary History: Reports: Other (See Below) Other Genitourinary History: hydronephrosis THIRD RIGGER History: Reports: Hyperemesis, Musculoskeletal History: Reports: None Neurological History: Reports: Concussion, Migraines Psychiatric History: Reports: Anxiety, Panic Attack Endocrine/Metabolic History: Reports: Obesity/BMI 30+ Hematologic History: Reports: Anemia Immunologic History: Reports: None Oncologic (Cancer) History: Reports: None Dermatologic History: Reports: None - Infectious Disease History Infectious Disease History: Reports: Chicken Pox, Influenza - Past Surgical History HEENT Surgical History: Reports: Oral Surgery Female Surgical History: Reports: Other (See Below) Other Female Surgeries/Procedures: cyst removed laparoscopy Social & Family History - Family History HEENT: Reports: Cataract, Impaired Vision Cardiac: Reports: High Cholesterol, Hypertension Respiratory: Reports: Asthma GI: Reports: Cholelithiasis : Reports: None OBGYN: Reports: , Recurrent Spontaneous Neurological: Reports: CVA, Dementia, Migraines Psychiatric: Reports: Anxiety, Panic Attack Endocrine/Metabolic: Reports: None Hematologic: Reports: None Immunologic: Reports: None Dermatologic: Reports: None Oncologic: Reports: Lung - Caffeine Use Caffeine Use: Reports: Soda ED ROS GENERAL - Review of Systems Review Of Systems: Comprehensive ROS is negative, except as noted in HPI. ED EXAM, GI/ABD - Physical Exam Exam: See Below Text/Narrative:: Exam: See Below Exam Limited By: No Limitations Head: Atraumatic Neck: Normal Inspection. No: Carotid Bruit, Lymphadenopathy (R) Respiratory/Chest: No Respiratory Distress, Lungs Clear, Normal Breath Sounds, No Accessory Muscle Use. No: Chest Non-Tender Cardiovascular: Normal Peripheral Pulses, Regular Rate, Rhythm, No Edema, No JVD GI/Abdominal: Normal Bowel Sounds, positive right upper quadrant and right flank tenderness. Back Exam: Normal Inspection. Positive for CVA Tenderness (R) Extremities: Normal Inspection. No: No Pedal Edema Neurological: Alert, Oriented, Normal Cognition Psychiatric: Normal Affect Skin Exam: Warm Lymphatic: No Adenopathy Course - Vital Signs Text/Narrative:: Patient's urine shows trace leukocytes. The rest of her lab work is within normal limits. Ultrasound shows no abnormalities to the gallbladder or kidney. I will be treating the patient for a pyelonephritis. I am starting her on Bactrim since she says she is allergic to ciprofloxacin. I will give her some pain and nausea medicine in addition. Patient knows to return to ER if worse and will follow up with PCP for recheck when antibiotics are finished. Last Recorded V/S: Last Vital Signs Temp 35.2 C L 12/30/19 13:47 Pulse 72 12/30/19 13:47 Resp 18 12/30/19 13:47 BP 147/99 H 12/30/19 13:47 Pulse Ox 95 12/30/19 13:47 - Orders/Labs/Meds Labs: Laboratory Tests 12/30/19 12/30/19 12/30/19 Range/Units 14:10 14:10 14:10 WBC 6.82 (4.0-11.0) K/uL RBC 4.65 (4.30-5.90) M/uL Hgb 15.1 (12.0-16.0) g/dL Hct 44.9 (36.0-46.0) % MCV 96.6 (80.0-98.0) fL MCH 32.5 H (27.0-32.0) pg MCHC 33.6 (31.0-37.0) g/dL RDW Std Deviation 46.9 (28.0-62.0) fl RDW Coeff of David 13 (11.0-15.0) % Plt Count 267 (150-400) K/uL MPV 10.00 (7.40-12.00) fL Neut % (Auto) 61.1 (48.0-80.0) % Lymph % (Auto) 27.0 (16.0-40.0) % Gilliam % (Auto) 9.4 (0.0-15.0) % Eos % (Auto) 1.6 (0.0-7.0) % Baso % (Auto) 0.9 (0.0-1.5) % Neut # (Auto) 4.2 (1.4-5.7) K/uL Lymph # (Auto) 1.8 (0.6-2.4) K/uL Gilliam # (Auto) 0.6 (0.0-0.8) K/uL Eos # (Auto) 0.1 (0.0-0.7) K/uL Baso # (Auto) 0.1 (0.0-0.1) K/uL Nucleated RBC % 0.0 /100WBC Nucleated RBCs # 0 K/uL Sodium (136-145) mmol/L Potassium (3.5-5.1) mmol/L Chloride (98-107) mmol/L Carbon Dioxide (21.0-32.0) mmol/L BUN (7.0-18.0) mg/dL Creatinine (0.6-1.0) mg/dL Est Cr Clr Drug Dosing mL/min Estimated GFR (MDRD) ml/min Glucose (74-106) mg/dL Calcium (8.5-10.1) mg/dL Total Bilirubin (0.2-1.0) mg/dL AST (15-37) IU/L ALT (14-63) IU/L Alkaline Phosphatase (46-116) U/L Total Protein (6.4-8.2) g/dL Albumin (3.4-5.0) g/dL Globulin (2.6-4.0) g/dL Albumin/Globulin Ratio (0.9-1.6) Lipase (73-393) U/L Urine Color YELLOW Urine Appearance CLEAR Urine pH 7.0 (5.0-8.0) Ur Specific [place] 1.020 (1.001-1.035) Urine Protein NEGATIVE (NEGATIVE) mg/dL Urine Glucose (UA) NEGATIVE (NEGATIVE) mg/dL Urine Ketones NEGATIVE (NEGATIVE) mg/dL Urine Occult Blood NEGATIVE (NEGATIVE) Urine Nitrite NEGATIVE (NEGATIVE) Urine Bilirubin NEGATIVE (NEGATIVE) Urine Urobilinogen 0.2 (<2.0) EU/dL Ur Leukocyte Esterase SMALL H (NEGATIVE) Urine RBC 0-2 (0-2/HPF) Urine WBC 2-5 (0-5/HPF) Ur Epithelial Cells MODERATE (NONE-FEW) Urine Bacteria FEW (NEGATIVE) Urine HCG, Qual NEGATIVE (NEGATIVE) 12/30/19 Range/Units 14:10 WBC (4.0-11.0) K/uL RBC (4.30-5.90) M/uL Hgb (12.0-16.0) g/dL Hct (36.0-46.0) % MCV (80.0-98.0) fL MCH (27.0-32.0) pg MCHC (31.0-37.0) g/dL RDW Std Deviation (28.0-62.0) fl RDW Coeff of David (11.0-15.0) % Plt Count (150-400) K/uL MPV (7.40-12.00) fL Neut % (Auto) (48.0-80.0) % Lymph % (Auto) (16.0-40.0) % Gilliam % (Auto) (0.0-15.0) % Eos % (Auto) (0.0-7.0) % Baso % (Auto) (0.0-1.5) % Neut # (Auto) (1.4-5.7) K/uL Lymph # (Auto) (0.6-2.4) K/uL Gilliam # (Auto) (0.0-0.8) K/uL Eos # (Auto) (0.0-0.7) K/uL Baso # (Auto) (0.0-0.1) K/uL Nucleated RBC % /100WBC Nucleated RBCs # K/uL Sodium 138 (136-145) mmol/L Potassium 3.7 (3.5-5.1) mmol/L Chloride 102 (98-107) mmol/L Carbon Dioxide 25.1 (21.0-32.0) mmol/L BUN 11 (7.0-18.0) mg/dL Creatinine 0.8 (0.6-1.0) mg/dL Est Cr Clr Drug Dosing 87.99 mL/min Estimated GFR (MDRD) > 60.0 ml/min Glucose 105 (74-106) mg/dL Calcium 8.4 L (8.5-10.1) mg/dL Total Bilirubin 0.6 (0.2-1.0) mg/dL AST 93 H (15-37) IU/L ALT 81 H (14-63) IU/L Alkaline Phosphatase 98 (46-116) U/L Total Protein 8.4 H (6.4-8.2) g/dL Albumin 3.4 (3.4-5.0) g/dL Globulin 5.0 H (2.6-4.0) g/dL Albumin/Globulin Ratio 0.7 L (0.9-1.6) Lipase 163 (73-393) U/L Urine Color Urine Appearance Urine pH (5.0-8.0) Ur Specific [place] (1.001-1.035) Urine Protein (NEGATIVE) mg/dL Urine Glucose (UA) (NEGATIVE) mg/dL Urine Ketones (NEGATIVE) mg/dL Urine Occult Blood (NEGATIVE) Urine Nitrite (NEGATIVE) Urine Bilirubin (NEGATIVE) Urine Urobilinogen (<2.0) EU/dL Ur Leukocyte Esterase (NEGATIVE) Urine RBC (0-2/HPF) Urine WBC (0-5/HPF) Ur Epithelial Cells (NONE-FEW) Urine Bacteria (NEGATIVE) Urine HCG, Qual (NEGATIVE) Meds: Medications Discontinued Medications Generic Name Dose Route Start Last Admin Trade Name Freq PRN Reason Stop Dose Admin Sodium Chloride 1,000 mls @ 999 mls/hr 12/30/19 14:04 12/30/19 14:23 Normal Saline IV 12/30/19 15:04 999 mls/hr .BOLUS ONE Administration Ketorolac Tromethamine 30 mg 12/30/19 14:04 12/30/19 14:25 Toradol IVPUSH 12/30/19 14:05 Not Given ONETIME ONE Departure - Departure Time of Disposition: 16:01 Disposition: Home, Self-Care 01 Condition: Good Clinical Impression: Pyelonephritis - Discharge Information Instructions: Pyelonephritis, Adult Referrals: Ermelinda Durán [employer] CHIEF [Primary Care Provider] - Forms: ED Department Discharge Additional Instructions: Bactrim and meds as prescribed. Return to ER if having fever or shaking chills , vomiting or feeling worse. Follow-up with PCP for recheck when you finish your antibiotic sooner if not improving. Increase fluids. Care Plan Goals: The following information is given to patients seen in the emergency department who are being discharged to home. This information is to outline your options for follow-up care. We provide all patients seen in our emergency department with a follow-up referral. The need for follow-up, as well as the timing and circumstances, are variable depending upon the specifics of your emergency department visit. If you don't have a primary care physician on staff, we will provide you with a referral. We always advise you to contact your personal physician following an emergency department visit to inform them of the circumstance of the visit and for follow-up with them and/or the need for any referrals to a consulting specialist. The emergency department will also refer you to a specialist when appropriate. This referral assures that you have the opportunity for follow-up care with a specialist. All of these measure are taken in an effort to provide you with optimal care, which includes your follow-up. Under all circumstances we always encourage you to contact your private physician who remains a resource for coordinating your care. When calling for follow-up care, please make the office aware that this follow-up is from your recent emergency room visit. If for any reason you are refused follow-up, please contact the [facility] Emergency Department at and asked to speak to the emergency department charge nurse. Sepsis Event Note - Focused Exam Vital Signs: Vital Signs Temp Pulse Resp BP Pulse Ox 12/30/19 13:47 35.2 C L 72 18 147/99 H 95 Date Exam was Performed: 12/30/19 Time Exam was Performed: 15:59
[2019-12-30 13:52] VITALS: PULSE 72
[2019-12-30] MEDS ORDERED: Sodium Chloride 0.9% 1,000 ML IV ONE (14:04)
[2019-12-30] MEDS ORDERED: Ketorolac 30 MG/ML SDV IVPUSH ONE (14:04)
[2019-12-30 15:08] LABS: BLOOD UREA NITROGEN,BUN 11 mg/dL (7.0-18.0); CARBON DIOXIDE,CO2 25.1 mmol/L (21.0-32.0); CHLORIDE,CL 102 mmol/L (98-107); GLUCOSE RANDOM 105 mg/dL (74-106); LIPASE 163 U/L (73-393); POTASSIUM,K 3.7 mmol/L (3.5-5.1); SODIUM,NA 138 mmol/L (136-145)
--- NOTE | 2019-12-30 15:25 | US ---
Limited right upper quadrant abdominal ultrasound: Multiple real-time images were obtained of the upper right abdomen. Liver is echogenic in relation to the kidney. This finding is most likely due to fatty infiltration. No focal abnormality is appreciated. Gallbladder is not well distended. No gross findings of cholelithiasis are seen. No gallbladder wall thickening or biliary ductal dilatation is seen. Right kidney shows no hydronephrosis or mass. Right kidney has a length of 9.8 cm. Pancreas is incompletely seen. Visualized portions of the pancreas are unremarkable. Impression: 1. Probable fatty infiltration within the liver. 2. Poorly distended gallbladder, no gross abnormality is seen. 3. Incompletely seen pancreas due to bowel gas. Other portions of the right upper quadrant abdominal ultrasound are unremarkable. Diagnostic code #2 Study was dictated in [place] Standard Time
[2019-12-30 16:06] VITALS: BP 155/96
== END 2019-12-30 16:25 | disposition home or self-care (01) ==
LOC: MW.ED 13:40
DX: N12 Tubulo-interstitial nephritis, not specified as acute or chronic (principal); I10 Essential (primary) hypertension; F41.9 Anxiety disorder, unspecified; E66.9 Obesity, unspecified; Z79.899 Other long term (current) drug therapy; Z98.890 Other specified postprocedural states; Z88.8 Allergy status to other drugs, medicaments and biological substances
CPT/HCPCS: 36415; 76705; 80053; 81001; 81025; 83690; 85025; 96360; 96361; 99284; J7030

== ENCOUNTER 2020-02-08 02:43 | Emergency (ER) | payer BC ==
[2020-02-08] MEDS ORDERED: Sodium Chloride 0.9% 1,000 ML IV ONE (02:57)
[2020-02-08] MEDS ORDERED: LORazepam 2 MG/ML SDV IVPUSH ONE ×3 (02:58→05:15)
[2020-02-08] MEDS ORDERED: Sodium Chloride 0.9% 2.5 ML Syringe FLUSH PRN (02:58)
[2020-02-08] MEDS ORDERED: Sodium Chloride 0.9% 10 ML Syringe FLUSH PRN (02:58)
[2020-02-08] MEDS ORDERED: Famotidine 20 MG/2 ML SDV IVPUSH ONE (03:19)
[2020-02-08 03:43] LABS: ACETAMINOPHEN <2.0 ug/mL; BLOOD UREA NITROGEN,BUN 7 mg/dL (7.0-18.0); CARBON DIOXIDE,CO2 24.7 mmol/L (21.0-32.0); CHLORIDE,CL 106 mmol/L (98-107); GLUCOSE RANDOM 97 mg/dL (74-106); POTASSIUM,K 3.5 mmol/L (3.5-5.1); SODIUM,NA 145 mmol/L (136-145)
--- NOTE | 2020-02-08 04:44 | EDM.PDOCBH ---
ED HPI GENERAL MEDICAL PROBLEM - General Chief Complaint: Behavioral/Psych Stated Complaint: MENTAL EVAL Time Seen by Provider: 02/08/20 04:39 Source of Information: Reports: Patient History Limitations: Reports: No Limitations - History of Present Illness INITIAL COMMENTS - FREE TEXT/NARRATIVE: Patient is a 29-year-old female presents the emergency room with a chief complaint of being upset, possible attempted overdose and drinking alcohol. Patient has a history of depression and wants help patient states she took 15 50 mg of Atarax p.o. Onset: Today Duration: Day(s): Severity: Mild Improves with: Reports: None Worsens with: Reports: None Associated Symptoms: Reports: No Other Symptoms - Related Data Allergies Allergy/AdvReac Type Severity Reaction Status Date / Time NSAIDS (Non-Steroidal Allergy Anaphylactic Verified 02/08/20 02:56 Anti-Inflamma Shock Home Meds: Home Meds hydrOXYzine pamoate [Vistaril] 50 mg PO BEDTIME PRN 06/15/18 [History] Desvenlafaxine [Desvenlafaxine ER] 100 mg PO DAILY 12/30/19 [History] Doxepin HCl [Doxepin] 50 mg PO BEDTIME 12/30/19 [History] Propranolol [Inderal LA] 1 tab PO DAILY 12/30/19 [History] busPIRone HCl [busPIRone] 30 mg PO BID 12/30/19 [History] Past Medical History HEENT History: Reports: Cataract, Impaired Vision Cardiovascular History: Reports: Hypertension Respiratory History: Reports: None Gastrointestinal History: Reports: None Genitourinary History: Reports: Other (See Below) Other Genitourinary History: hydronephrosis 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, Musculoskeletal History: Reports: None Neurological History: Reports: Concussion, Migraines Psychiatric History: Reports: Anxiety, Depression, Panic Attack Endocrine/Metabolic History: Reports: Obesity/BMI 30+ 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 Terminal Operations Manager: None Hematologic History: Reports: Anemia Immunologic History: Reports: None Oncologic (Cancer) History: Reports: None Dermatologic History: Reports: None - Infectious Disease History Infectious Disease History: Reports: None - Past Surgical History Head Surgeries/Procedures: Reports: None HEENT Surgical History: Reports: Oral Surgery Female Surgical History: Reports: Other (See Below) Other Female Surgeries/Procedures: cyst removed laparoscopy Social & Family History - Family History HEENT: Reports: Cataract, Impaired Vision Cardiac: Reports: High Cholesterol, Hypertension Respiratory: Reports: Asthma GI: Reports: Cholelithiasis : Reports: None OBGYN: Reports: , Recurrent Spontaneous Neurological: Reports: CVA, Dementia, Migraines Psychiatric: Reports: Anxiety, Panic Attack Endocrine/Metabolic: Reports: None Hematologic: Reports: None Immunologic: Reports: None Dermatologic: Reports: None Oncologic: Reports: Lung - Tobacco Use Smoking Status *Q: Current Every Day Smoker Years of Tobacco use: 20 Packs/Tins Daily: 0.2 - Caffeine Use Caffeine Use: Reports: Soda - Recreational Drug Use Recreational Drug Use: No ED ROS GENERAL - Review of Systems Review Of Systems: See Below Constitutional: Reports: No Symptoms HEENT: Reports: No Symptoms Respiratory: Reports: No Symptoms Cardiovascular: Reports: No Symptoms Endocrine: Reports: No Symptoms GI/Abdominal: Reports: No Symptoms : Reports: No Symptoms Musculoskeletal: Reports: No Symptoms Psychiatric: Reports: Depression Hematologic/Lymphatic: Reports: No Symptoms Immunologic: Reports: No Symptoms ED EXAM, BEHAVIORAL HEALTH - Physical Exam Exam: See Below Exam Limited By: No Limitations General Appearance: Alert, WD/WN, No Apparent Distress Eye Exam: Bilateral Eye: Normal Fundi, Normal Inspection Ears: Normal External Exam, Normal Canal Nose: Normal Inspection, Normal Mucosa, No Blood Throat/Mouth: Normal Inspection, Normal Lips, Normal Teeth Head: Atraumatic, Normocephalic Neck: Normal Inspection, Supple, Non-Tender Respiratory/Chest: No Respiratory Distress, Lungs Clear, Normal Breath Sounds, No Accessory Muscle Use, Chest Non-Tender Cardiovascular: Normal Peripheral Pulses, Regular Rate, Rhythm, No Edema GI/Abdominal: Normal Bowel Sounds, Soft, Non-Tender (Female) Exam: Deferred Rectal (Female) Exam: Deferred Back Exam: Normal Inspection, Full Range of Motion Extremities: Normal Inspection, Normal Range of Motion Neurological: Alert, Normal Mood/Affect, CN II-XII Intact, Normal Cognition, Normal Gait, Normal Reflexes, No Motor/Sensory Deficits Psychiatric: Alert, Normal Affect, Normal Cognition, Normal Mood Skin Exam: Warm, Dry, Intact, Normal color, No rash COURSE, BEHAVIORAL HEALTH COMP - Course Vital Signs: Last Vital Signs Temp 97.7 F 02/08/20 02:45 Pulse 113 H 02/08/20 04:06 Resp 18 02/08/20 04:06 BP 109/75 02/08/20 04:06 Pulse Ox 95 02/08/20 04:06 Orders, Labs, Meds: Active Orders 24 hr Category Date Time Status EKG Documentation Completion [RC] STAT Care 02/08/20 02:53 Active Chest 1V Frontal [CR] Stat Exams 02/08/20 02:52 Ordered Sodium Chloride 0.9% [Saline Flush] Med 02/08/20 02:58 Active 10 ml FLUSH ASDIRECTED PRN Sodium Chloride 0.9% [Saline Flush] Med 02/08/20 02:58 Active 2.5 ml FLUSH ASDIRECTED PRN Saline Lock Insert [OM.PC] Stat Oth 02/08/20 02:58 Ordered Medication Orders Sodium Chloride (Saline Flush) 10 ml FLUSH ASDIRECTED PRN PRN Reason: Keep Vein Open Last Admin: 02/08/20 03:55 Dose: 10 ml Sodium Chloride (Saline Flush) 2.5 ml FLUSH ASDIRECTED PRN PRN Reason: Keep Vein Open Last Admin: 02/08/20 03:56 Dose: 2.5 ml Laboratory Tests 02/08/20 02/08/20 02/08/20 Range/Units 03:03 03:03 03:03 WBC (4.0-11.0) K/uL RBC (4.30-5.90) M/uL Hgb (12.0-16.0) g/dL Hct (36.0-46.0) % MCV (80.0-98.0) fL MCH (27.0-32.0) pg MCHC (31.0-37.0) g/dL RDW Std Deviation (28.0-62.0) fl RDW Coeff of David (11.0-15.0) % Plt Count (150-400) K/uL MPV (7.40-12.00) fL Neut % (Auto) (48.0-80.0) % Lymph % (Auto) (16.0-40.0) % [place]upe % (Auto) (0.0-15.0) % Eos % (Auto) (0.0-7.0) % Baso % (Auto) (0.0-1.5) % Neut # (Auto) (1.4-5.7) K/uL Lymph # (Auto) (0.6-2.4) K/uL [place]upe # (Auto) (0.0-0.8) K/uL Eos # (Auto) (0.0-0.7) K/uL Baso # (Auto) (0.0-0.1) K/uL Nucleated RBC % /100WBC Nucleated RBCs # K/uL Sodium (136-145) mmol/L Potassium (3.5-5.1) mmol/L Chloride (98-107) mmol/L Carbon Dioxide (21.0-32.0) mmol/L BUN (7.0-18.0) mg/dL Creatinine (0.6-1.0) mg/dL Est Cr Clr Drug Dosing mL/min Estimated GFR (MDRD) ml/min Glucose (74-106) mg/dL Calcium (8.5-10.1) mg/dL Magnesium (1.8-2.4) mg/dL Total Bilirubin (0.2-1.0) mg/dL AST (15-37) IU/L ALT (14-63) IU/L Alkaline Phosphatase (46-116) U/L Total Protein (6.4-8.2) g/dL Albumin (3.4-5.0) g/dL Globulin (2.6-4.0) g/dL Albumin/Globulin Ratio (0.9-1.6) TSH 3rd Generation (0.36-3.74) uIU/mL Urine Color YELLOW Urine Appearance CLEAR Urine pH 6.5 (5.0-8.0) Ur Specific [place] <= 1.005 (1.001-1.035) Urine Protein NEGATIVE (NEGATIVE) mg/dL Urine Glucose (UA) NEGATIVE (NEGATIVE) mg/dL Urine Ketones NEGATIVE (NEGATIVE) mg/dL Urine Occult Blood NEGATIVE (NEGATIVE) Urine Nitrite NEGATIVE (NEGATIVE) Urine Bilirubin NEGATIVE (NEGATIVE) Urine Urobilinogen 0.2 (<2.0) EU/dL Ur Leukocyte Esterase SMALL H (NEGATIVE) Urine RBC 0-1 (0-2/HPF) Urine WBC 1-3 (0-5/HPF) Ur Epithelial Cells FEW (NONE-FEW) Urine Bacteria RARE (NEGATIVE) Urine HCG, Qual NEGATIVE (NEGATIVE) Salicylates (0-20) mg/dL Urine Opiates Screen NEGATIVE (NEGATIVE) Ur Oxycodone Screen NEGATIVE (NEGATIVE) Urine Methadone Screen NEGATIVE (NEGATIVE) Acetaminophen ug/mL Ur Barbiturates Screen NEGATIVE (NEGATIVE) Ur Phencyclidine Scrn NEGATIVE (NEGATIVE) Ur Amphetamine Screen NEGATIVE (NEGATIVE) U Methamphetamines Scrn NEGATIVE (NEGATIVE) U Benzodiazepines Scrn NEGATIVE (NEGATIVE) U Cocaine Metab Screen NEGATIVE (NEGATIVE) U Marijuana (THC) Screen NEGATIVE (NEGATIVE) Ethyl Alcohol mg/dL 02/08/20 02/08/20 Range/Units 03:12 03:12 WBC 6.98 (4.0-11.0) K/uL RBC 4.54 (4.30-5.90) M/uL Hgb 15.0 (12.0-16.0) g/dL Hct 45.2 (36.0-46.0) % MCV 99.6 H (80.0-98.0) fL MCH 33.0 H (27.0-32.0) pg MCHC 33.2 (31.0-37.0) g/dL RDW Std Deviation 48.5 (28.0-62.0) fl RDW Coeff of David 14 (11.0-15.0) % Plt Count 339 (150-400) K/uL MPV 10.30 (7.40-12.00) fL Neut % (Auto) 38.0 L (48.0-80.0) % Lymph % (Auto) 50.1 H (16.0-40.0) % [place] % (Auto) 9.5 (0.0-15.0) % Eos % (Auto) 2.0 (0.0-7.0) % Baso % (Auto) 0.4 (0.0-1.5) % Neut # (Auto) 2.7 (1.4-5.7) K/uL Lymph # (Auto) 3.5 H (0.6-2.4) K/uL [place] # (Auto) 0.7 (0.0-0.8) K/uL Eos # (Auto) 0.1 (0.0-0.7) K/uL Baso # (Auto) 0.0 (0.0-0.1) K/uL Nucleated RBC % 0.0 /100WBC Nucleated RBCs # 0 K/uL Sodium 145 (136-145) mmol/L Potassium 3.5 (3.5-5.1) mmol/L Chloride 106 (98-107) mmol/L Carbon Dioxide 24.7 (21.0-32.0) mmol/L BUN 7 (7.0-18.0) mg/dL Creatinine 1.0 (0.6-1.0) mg/dL Est Cr Clr Drug Dosing 70.39 mL/min Estimated GFR (MDRD) > 60.0 ml/min Glucose 97 (74-106) mg/dL Calcium 9.2 (8.5-10.1) mg/dL Magnesium 2.1 (1.8-2.4) mg/dL Total Bilirubin 0.2 (0.2-1.0) mg/dL AST 184 H (15-37) IU/L ALT 80 H (14-63) IU/L Alkaline Phosphatase 110 (46-116) U/L Total Protein 9.0 H (6.4-8.2) g/dL Albumin 4.0 (3.4-5.0) g/dL Globulin 5.0 H (2.6-4.0) g/dL Albumin/Globulin Ratio 0.8 L (0.9-1.6) TSH 3rd Generation 2.85 (0.36-3.74) uIU/mL Urine Color Urine Appearance Urine pH (5.0-8.0) Ur Specific [place] (1.001-1.035) Urine Protein (NEGATIVE) mg/dL Urine Glucose (UA) (NEGATIVE) mg/dL Urine Ketones (NEGATIVE) mg/dL Urine Occult Blood (NEGATIVE) Urine Nitrite (NEGATIVE) Urine Bilirubin (NEGATIVE) Urine Urobilinogen (<2.0) EU/dL Ur Leukocyte Esterase (NEGATIVE) Urine RBC (0-2/HPF) Urine WBC (0-5/HPF) Ur Epithelial Cells (NONE-FEW) Urine Bacteria (NEGATIVE) Urine HCG, Qual (NEGATIVE) Salicylates 1.0 (0-20) mg/dL Urine Opiates Screen (NEGATIVE) Ur Oxycodone Screen (NEGATIVE) Urine Methadone Screen (NEGATIVE) Acetaminophen <2.0 ug/mL Ur Barbiturates Screen (NEGATIVE) Ur Phencyclidine Scrn (NEGATIVE) Ur Amphetamine Screen (NEGATIVE) U Methamphetamines Scrn (NEGATIVE) U Benzodiazepines Scrn (NEGATIVE) U Cocaine Metab Screen (NEGATIVE) U Marijuana (THC) Screen (NEGATIVE) Ethyl Alcohol 330 mg/dL Medications Generic Name Dose Route Start Last Admin Trade Name Freq PRN Reason Stop Dose Admin Sodium Chloride 10 ml 02/08/20 02:58 02/08/20 03:55 Saline Flush FLUSH 10 ml ASDIRECTED PRN Administration Keep Vein Open Sodium Chloride 2.5 ml 02/08/20 02:58 02/08/20 03:56 Saline Flush FLUSH 2.5 ml ASDIRECTED PRN Administration Keep Vein Open Discontinued Medications Generic Name Dose Route Start Last Admin Trade Name Freq PRN Reason Stop Dose Admin Famotidine 20 mg 02/08/20 03:19 02/08/20 03:50 Pepcid IVPUSH 02/08/20 03:20 20 mg ONETIME ONE Administration Sodium Chloride 1,000 mls @ 999 mls/hr 02/08/20 02:57 02/08/20 03:10 Normal Saline IV 02/08/20 03:57 999 mls/hr .Bolus ONE Administration Lorazepam 1 mg 02/08/20 02:58 02/08/20 03:10 Ativan IVPUSH 02/08/20 02:59 1 mg ONETIME ONE Administration Lorazepam 1 mg 02/08/20 03:41 02/08/20 03:51 Ativan IVPUSH 02/08/20 03:42 1 mg ONETIME ONE Administration Medical Clearance: 29-year-old female presented to the emergency room with a 1-year-old female stating she needed help. Patient has taken multiple medications. A call to poison control was done. They suggest the patient be monitored for 4 hours and draw drug levels. Patient's drug levels came back as salicylate less than 1 acetaminophen of 2 and patient has an alcohol level 333. Patient was given IV fluids and a milligram of Ativan. Patient seemed to calm down and stabilized. I have discussed the case with Dr. Vergara who has accepted the patient ABY Elizalde . 02/08/20 05:01 Departure - Departure Time of Disposition: 05:04 Disposition: DC/Tfer to Psych Hosp/Unit 65 Condition: Good Clinical Impression: Depressive disorder - Discharge Information Referrals: Janet Negron, HAND SPRAYER [Primary Care Provider] - Forms: ED Department Discharge Additional Instructions: Patient has been accepted by Dr.Voimov ABY Elizalde Sepsis Event Note - Evaluation Sepsis Screening Result: No Definite Risk - Focused Exam Vital Signs: Vital Signs Temp Pulse Resp BP Pulse Ox 02/08/20 04:06 113 H 18 109/75 95 02/08/20 02:45 97.7 F 134 H 18 138/93 H 99 Date Exam was Performed: 02/08/20 Time Exam was Performed: 05:01 - My Orders Last 24 Hours: My Active Orders 02/08/20 02:52 Chest 1V Frontal [CR] Stat 02/08/20 02:53 EKG Documentation Completion [RC] STAT 02/08/20 02:58 Sodium Chloride 0.9% [Saline Flush] 10 ml FLUSH ASDIRECTED PRN Sodium Chloride 0.9% [Saline Flush] 2.5 ml FLUSH ASDIRECTED PRN Saline Lock Insert [OM.PC] Stat - Assessment/Plan Last 24 Hours: My Active Orders 02/08/20 02:52 Chest 1V Frontal [CR] Stat 02/08/20 02:53 EKG Documentation Completion [RC] STAT 02/08/20 02:58 Sodium Chloride 0.9% [Saline Flush] 10 ml FLUSH ASDIRECTED PRN Sodium Chloride 0.9% [Saline Flush] 2.5 ml FLUSH ASDIRECTED PRN Saline Lock Insert [OM.PC] Stat
[2020-02-08 06:12] VITALS: BP 111/65; PULSE 136
== END 2020-02-08 06:10 ==
LOC: MW.ED 02:43
DX: F32.9 Major depressive disorder, single episode, unspecified (principal); I10 Essential (primary) hypertension; F41.0 Panic disorder [episodic paroxysmal anxiety]; E66.9 Obesity, unspecified; Z68.29 Body mass index [BMI] 29.0-29.9, adult; F17.210 Nicotine dependence, cigarettes, uncomplicated; Z88.8 Allergy status to other drugs, medicaments and biological substances; Z79.899 Other long term (current) drug therapy
CPT/HCPCS: 36415; 80053; 80305; 80307; 81001; 81025; 83735; 84443; 85025; 93005; 96361; 96374; 96375; 96376; 99285; J2060; J7030; S0028; 99284; J3490

== ENCOUNTER 2020-03-18 18:19 | Emergency (ER) | payer BC ==
[2020-03-18] MEDS ORDERED: Acetaminophen/HYDROcodone 325-5 MG Tab PO ONE ×2 (18:37→19:32)
--- NOTE | 2020-03-18 18:37 | EDM.PDOC ---
ED HPI GENERAL MEDICAL PROBLEM - General Chief Complaint: Upper Extremity Injury/Pain Stated Complaint: LEFT LEG INJURY Time Seen by Provider: 03/18/20 18:36 History Limitations: Reports: No Limitations - History of Present Illness INITIAL COMMENTS - FREE TEXT/NARRATIVE: HISTORY AND PHYSICAL: History of present illness: Patient is a 29-year-old female presents to the ED with complaint of left foot injury. Patient states she was getting out of the shower when her foot caught the side of the tub and she slipped landing on her left foot. She has not been able to bear weight on it since. She denies ankle or knee injury or pain. Did not hit her head and no LOC. She denies distal numbness or tingling. Review of systems: As per history of present illness and below otherwise all systems reviewed and negative. Past medical history: As per history of present illness and as reviewed below otherwise noncontributory. Surgical history: As per history of present illness and as reviewed below otherwise noncontributory. Social history: No reported history of drug or alcohol abuse. Family history: As per history of present illness and as reviewed below otherwise noncontributory. Physical exam: General: Patient sitting comfortably in no acute distress and nontoxic appearing HEENT: Atraumatic, normocephalic, pupils reactive, negative for conjunctival pallor or scleral icterus, mucous membranes moist, throat clear, neck supple, nontender, trachea midline. No meningeal signs. Extremities: Skin is intact. Ecchymosis to the left dorsal midfoot with pain to palpation of the midfoot. CMS intact distally. No proximal ankle or leg pain to palpation. negative for cords or calf pain. Neurovascular unremarkable. Neuro: Awake, alert, oriented. Cranial nerves II through XII unremarkable. Cerebellum unremarkable. Motor and sensory unremarkable throughout. Exam nonfocal. Notes: Patient instructed on importance of follow up within the next week with either podiatry or orthopedics. Diagnostics: x-ray left foot Therapeutics: Woodland 5/325 Prescriptions: Woodland 7.5/325mg (#12) Impression: Navicular bone fracture Plan: 1. Ice, elevate, and motrin or tylenol as needed 2. Follow up with orthopedics or podiatry within the next week, please call the number provided to schedule an appointment 3. Return to ED as needed as discussed Definitive disposition and diagnosis as appropriate pending reevaluation and review of above. Left Foot Pain Score (Numeric/FACES): 10 - Related Data Allergies Allergy/AdvReac Type Severity Reaction Status Date / Time NSAIDS (Non-Steroidal Allergy Anaphylactic Verified 03/18/20 18:40 Anti-Inflamma Shock strawberry Allergy Swelling Verified 03/18/20 18:40 Home Meds: Home Meds Propranolol [Inderal LA] 1 tab PO DAILY 12/30/19 [History] Acetaminophen/HYDROcodone [Woodland 325-7.5 MG] 1 tab PO Q6H PRN #12 tab 03/18/20 [ Rx] Desvenlafaxine Succinate [Pristiq ER] 200 mg PO DAILY 03/18/20 [History] clonazePAM [Clonazepam] 1 mg PO ASDIRECTED 03/18/20 [History] traZODone HCl [Trazodone HCl] 50 mg PO DAILY 03/18/20 [History] Past Medical History HEENT History: Reports: Cataract, Impaired Vision Cardiovascular History: Reports: Hypertension Respiratory History: Reports: None Gastrointestinal History: Reports: None Genitourinary History: Reports: Other (See Below) Other Genitourinary History: hydronephrosis 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, Musculoskeletal History: Reports: None Neurological History: Reports: Concussion, Migraines Psychiatric History: Reports: Anxiety, Depression, Panic Attack Endocrine/Metabolic History: Reports: Obesity/BMI 30+ 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 Suction Worker: None Hematologic History: Reports: Anemia Immunologic History: Reports: None Oncologic (Cancer) History: Reports: None Dermatologic History: Reports: None - Infectious Disease History Infectious Disease History: Reports: None - Past Surgical History Head Surgeries/Procedures: Reports: None HEENT Surgical History: Reports: Oral Surgery Female Surgical History: Reports: Other (See Below) Other Female Surgeries/Procedures: cyst removed laparoscopy Social & Family History - Family History HEENT: Reports: Cataract, Impaired Vision Cardiac: Reports: High Cholesterol, Hypertension Respiratory: Reports: Asthma GI: Reports: Cholelithiasis : Reports: None OBGYN: Reports: , Recurrent Spontaneous Neurological: Reports: CVA, Dementia, Migraines Psychiatric: Reports: Anxiety, Panic Attack Endocrine/Metabolic: Reports: None Hematologic: Reports: None Immunologic: Reports: None Dermatologic: Reports: None Oncologic: Reports: Lung - Caffeine Use Caffeine Use: Reports: Soda Review of Systems - Review of Systems Review Of Systems: Comprehensive ROS is negative, except as noted in HPI. ED EXAM, GENERAL - Physical Exam Exam: See Below (see dictation) Course - Vital Signs Last Recorded V/S: Last Vital Signs Temp 97.4 F 03/18/20 18:34 Pulse 88 03/18/20 18:34 Resp 17 03/18/20 18:34 BP 142/94 H 03/18/20 18:34 Pulse Ox 95 03/18/20 18:34 - Orders/Labs/Meds Orders: Active Orders 24 hr Category Date Time Status Acetaminophen/HYDROcodone [Woodland 325-5 MG] Med 03/18/20 19:32 Once 1 tab PO ONETIME ONE Acetaminophen/HYDROcodone [Woodland 325-7.5 MG] Med 03/18/20 19:19 Stop Req 1 tab PO Q6H PRN DME for Discharge [COMM] Stat Oth 03/18/20 19:18 Ordered Medication Orders Hydrocodone Bitart/Acetaminophen (Woodland 325-7.5 Mg) 1 tab PO Q6H PRN PRN Reason: Pain (severe 7-10) Hydrocodone Bitart/Acetaminophen (Woodland 325-5 Mg) 1 tab PO ONETIME ONE Stop: 03/18/20 19:33 Meds: Medications Generic Name Dose Route Start Last Admin Trade Name Freq PRN Reason Stop Dose Admin Hydrocodone Bitart/Acetaminophen 1 tab 03/18/20 19:19 Woodland 325-7.5 Mg PO Q6H PRN Pain (severe 7-10) Hydrocodone Bitart/Acetaminophen 1 tab 03/18/20 19:32 Woodland 325-5 Mg PO 03/18/20 19:33 ONETIME ONE Discontinued Medications Generic Name Dose Route Start Last Admin Trade Name Freq PRN Reason Stop Dose Admin Hydrocodone Bitart/Acetaminophen 1 tab 03/18/20 18:37 03/18/20 18:53 Woodland 325-5 Mg PO 03/18/20 18:38 1 tab ONETIME ONE Administration Departure - Departure Time of Disposition: 19:24 Disposition: Home, Self-Care 01 Condition: Good Clinical Impression: Fracture of navicular bone of foot - Discharge Information Prescriptions: Acetaminophen/HYDROcodone [Woodland 325-7.5 MG] 1 tab PO Q6H PRN #12 tab PRN Reason: Pain Referrals: Panfilo Juarez MD [Primary Care Provider] - Forms: ED Department Discharge Additional Instructions: The following information is given to patients seen in the emergency department who are being discharged to home. This information is to outline your options for follow-up care. We provide all patients seen in our emergency department with a follow-up referral. The need for follow-up, as well as the timing and circumstances, are variable depending upon the specifics of your emergency department visit. If you don't have a primary care physician on staff, we will provide you with a referral. We always advise you to contact your personal physician following an emergency department visit to inform them of the circumstance of the visit and for follow-up with them and/or the need for any referrals to a consulting specialist. The emergency department will also refer you to a specialist when appropriate. This referral assures that you have the opportunity for follow-up care with a specialist. All of these measure are taken in an effort to provide you with optimal care, which includes your follow-up. Under all circumstances we always encourage you to contact your private physician who remains a resource for coordinating your care. When calling for follow-up care, please make the office aware that this follow-up is from your recent emergency room visit. If for any reason you are refused follow-up, please contact the [facility] Emergency Department at and asked to speak to the emergency department charge nurse. [facility] [address] [place] [id number] [facility] Special[facility] - Orthopedic [facility] Professional Building [address] [place] [address], [address] [place] [address] 1. Ice, elevate, and motrin or tylenol as needed 2. Follow up with orthopedics or podiatry within the next week, please call the number provided to schedule an appointment 3. Return to ED as needed as discussed Sepsis Event Note - Focused Exam Vital Signs: Vital Signs Temp Pulse Resp BP Pulse Ox 03/18/20 18:34 97.4 F 88 17 142/94 H 95 Date Exam was Performed: 03/18/20 Time Exam was Performed: 19:33 - My Orders Last 24 Hours: My Active Orders 03/18/20 19:18 DME for Discharge [COMM] Stat 03/18/20 19:19 Acetaminophen/HYDROcodone [Woodland 325-7.5 MG] 1 tab PO Q6H PRN 03/18/20 19:32 Acetaminophen/HYDROcodone [Woodland 325-5 MG] 1 tab PO ONETIME ONE - Assessment/Plan Last 24 Hours: My Active Orders 03/18/20 19:18 DME for Discharge [COMM] Stat 03/18/20 19:19 Acetaminophen/HYDROcodone [Woodland 325-7.5 MG] 1 tab PO Q6H PRN 03/18/20 19:32 Acetaminophen/HYDROcodone [Woodland 325-5 MG] 1 tab PO ONETIME ONE
--- NOTE | 2020-03-18 19:10 | CR ---
Indication: Injury and pain Technique: Left foot 2 views Comparison: None Findings/Impression: Bones: A fracture is apparent in the medial aspect of the navicular bone. However, this is not well visualized. This could be better evaluated with CT if deemed necessary. No other osseous abnormality evident. Bone alignment is normal. Joint spaces: Unremarkable. Soft tissues: Unremarkable. Dictated by Tobin Perez MD @ Mar 18 2020 7:04PM Signed by Dr. Tobin Perez @ Mar 18 2020 7:09PM
[2020-03-18] MEDS ORDERED: Acetaminophen/HYDROcodone 325-7.5 MG Tab PO PRN (19:19)
[2020-03-18 19:43] VITALS: BP 123/82; PULSE 89
== END 2020-03-18 20:02 | disposition home or self-care (01) ==
LOC: MW.ED 18:19
DX: S92.252A Displaced fracture of navicular [scaphoid] of left foot, initial encounter for closed fracture (principal); I10 Essential (primary) hypertension; F41.9 Anxiety disorder, unspecified; F32.9 Major depressive disorder, single episode, unspecified; E66.9 Obesity, unspecified; Z68.29 Body mass index [BMI] 29.0-29.9, adult; Z91.018 Allergy to other foods; Z88.8 Allergy status to other drugs, medicaments and biological substances; W01.0XXA Fall on same level from slipping, tripping and stumbling without subsequent striking against object, initial encounter
CPT/HCPCS: 73620; 99283; A9270

== ENCOUNTER 2020-03-21 11:45 | Emergency (ER) | payer BC ==
[2020-03-21] MEDS ORDERED: Acetaminophen/HYDROcodone 325-10 MG Tab PO ONE (12:16)
--- NOTE | 2020-03-21 12:21 | EDM.PDOC ---
ED HPI GENERAL MEDICAL PROBLEM - General Chief Complaint: Lower Extremity Injury/Pain Stated Complaint: LEG PAIN Time Seen by Provider: 03/21/20 11:47 - History of Present Illness INITIAL COMMENTS - FREE TEXT/NARRATIVE: Patient is a 29-year-old female who presents 4 days after presenting here for fracture of the navicular bone in her foot. She presents with persistent severe pain she has been taking the Waterloo as prescribed and getting minimal relief she also reports worsening pain in the heel and surrounding the splint at this time. She reports she is been unable to arrange any follow-up in [place] because all the orthopedic offices are closed she has an appoint with her primary care provider for later this week to try and look at other options and potentially a different town. Pain is constant and severe without alleviating factors at is throughout the foot and the heel no other associated symptoms. Left Foot Pain Score (Numeric/FACES): 9 - Related Data Allergies Allergy/AdvReac Type Severity Reaction Status Date / Time NSAIDS (Non-Steroidal Allergy Anaphylactic Verified 03/21/20 12:01 Anti-Inflamma Shock strawberry Allergy Swelling Verified 03/21/20 12:01 Home Meds: Home Meds Propranolol [Inderal LA] 1 tab PO DAILY 12/30/19 [History] Acetaminophen/HYDROcodone [Waterloo 325-7.5 MG] 1 tab PO Q6H PRN #12 tab 03/18/20 [ Rx] Desvenlafaxine Succinate [Pristiq ER] 200 mg PO DAILY 03/18/20 [History] clonazePAM [Clonazepam] 1 mg PO ASDIRECTED 03/18/20 [History] traZODone HCl [Trazodone HCl] 50 mg PO DAILY 03/18/20 [History] Hydrocodone/Acetaminophen [Hydrocodone-Acetamin 10-325 mg] 1 tab PO Q8HR 6 Days #18 tablet 03/21/20 [Rx] Past Medical History HEENT History: Reports: Cataract, Impaired Vision Cardiovascular History: Reports: Hypertension Respiratory History: Reports: None Gastrointestinal History: Reports: None Genitourinary History: Reports: Other (See Below) Other Genitourinary History: hydronephrosis 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, Musculoskeletal History: Reports: None Neurological History: Reports: Concussion, Migraines Psychiatric History: Reports: Anxiety, Depression, Panic Attack Endocrine/Metabolic History: Reports: Obesity/BMI 30+ 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 Script Developer: None Hematologic History: Reports: Anemia Immunologic History: Reports: None Oncologic (Cancer) History: Reports: None Dermatologic History: Reports: None - Infectious Disease History Infectious Disease History: Reports: None - Past Surgical History Head Surgeries/Procedures: Reports: None HEENT Surgical History: Reports: Oral Surgery Female Surgical History: Reports: Other (See Below) Other Female Surgeries/Procedures: cyst removed laparoscopy Social & Family History - Family History HEENT: Reports: Cataract, Impaired Vision Cardiac: Reports: High Cholesterol, Hypertension Respiratory: Reports: Asthma GI: Reports: Cholelithiasis : Reports: None OBGYN: Reports: , Recurrent Spontaneous Neurological: Reports: CVA, Dementia, Migraines Psychiatric: Reports: Anxiety, Panic Attack Endocrine/Metabolic: Reports: None Hematologic: Reports: None Immunologic: Reports: None Dermatologic: Reports: None Oncologic: Reports: Lung - Tobacco Use Smoking Status *Q: Never Smoker - Caffeine Use Caffeine Use: Reports: Soda - Recreational Drug Use Recreational Drug Use: No Review of Systems - Review of Systems Review Of Systems: See Below Constitutional: Denies: Fever Mouth/Throat: Denies: Pain Respiratory: Denies: Shortness of Breath Cardiovascular: Denies: Chest Pain GI/Abdominal: Denies: Abdominal Pain Musculoskeletal: Reports: Other (Per HPI) ED EXAM, GENERAL - Physical Exam Exam: See Below Free Text/Narrative:: General Appearance: No acute distress, appears comfortable Skin: No rash HEENT: Normocephalic/atraumatic, sclera anicteric, mucous membranes moist Neck: Normal range of motion Musculoskeletal: Left foot is neurovascularly intact, splint is intact, there is padding between the splint and the skin but is relatively thin at this point. Neurologic: Awake, alert, no obvious deficits, moving all extremities Psychiatric: Appropriate, cooperative ED TRAUMA EXTREMITY PROCEDURES - Splinting Left Lower Extremity Pre-Procedure NV Status: Normal Post-Procedure NV Status: Normal Splint Material: Fiberglass Splint Design: Posterior Applied & Form Fitted By: Nurse Provider Post-Splint Application NV Check: NV Status Normal Complications: No Course - Vital Signs Last Recorded V/S: Last Vital Signs Temp 97.3 F 03/21/20 11:59 Pulse 106 H 03/21/20 11:59 Resp 16 03/21/20 11:59 BP 151/94 H 03/21/20 11:59 Pulse Ox 97 03/21/20 11:59 - Orders/Labs/Meds Meds: Medications Discontinued Medications Generic Name Dose Route Start Last Admin Trade Name Jayjay PRN Reason Stop Dose Admin Hydrocodone Bitart/Acetaminophen 1 tab 03/21/20 12:16 03/21/20 12:32 Waterloo 325-10 Mg PO 03/21/20 12:17 1 tab ONETIME ONE Administration Departure - Departure Time of Disposition: 13:04 Disposition: Home, Self-Care 01 Condition: Good Clinical Impression: Fracture of navicular bone of foot - Discharge Information *PRESCRIPTION DRUG MONITORING PROGRAM REVIEWED*: Yes *COPY OF PRESCRIPTION DRUG MONITORING REPORT IN PATIENT JAMES: Not Applicable Prescriptions: Hydrocodone/Acetaminophen [Hydrocodone-Acetamin 10-325 mg] 1 tab PO Q8HR 6 Days #18 tablet Instructions: Cast or Splint Care, Adult Referrals: Ermelinda Durán, MACHINE TAPER [Primary Care Provider] - Forms: ED Department Discharge Additional Instructions: The following information is given to patients seen in the emergency department who are being discharged to home. This information is to outline your options for follow-up care. We provide all patients seen in our emergency department with a follow-up referral. The need for follow-up, as well as the timing and circumstances, are variable depending upon the specifics of your emergency department visit. If you don't have a primary care physician on staff, we will provide you with a referral. We always advise you to contact your personal physician following an emergency department visit to inform them of the circumstance of the visit and for follow-up with them and/or the need for any referrals to a consulting specialist. The emergency department will also refer you to a specialist when appropriate. This referral assures that you have the opportunity for follow-up care with a specialist. All of these measure are taken in an effort to provide you with optimal care, which includes your follow-up. Under all circumstances we always encourage you to contact your private physician who remains a resource for coordinating your care. When calling for follow-up care, please make the office aware that this follow-up is from your recent emergency room visit. If for any reason you are refused follow-up, please contact the [facility] Emergency Department at and asked to speak to the emergency department charge nurse. Sepsis Event Note - Evaluation Sepsis Screening Result: No Definite Risk - Focused Exam Vital Signs: Vital Signs Temp Pulse Resp BP Pulse Ox 03/21/20 11:59 97.3 F 106 H 16 151/94 H 97 Date Exam was Performed: 03/21/20 Time Exam was Performed: 13:04 - Assessment/Plan Assessment:: 29-year-old female presenting with persistent pain likely secondary to ongoing fracture related pain as well as inadequate padding of the initial splint. We will take down and replace the splint. Patient will be given a one-time dose of Waterloo here. Given her NSAID allergy and her significant pain I think she would benefit from splitting up the Tylenol and hydrocodone. We discussed splitting up the Tylenol and opioid and going with a gram of Tylenol 3 times daily and oxycodone. However, this is not covered by her insurance. For this reason we will give the 08/21/2025 Waterloo. Return precautions discussed and understood she will follow-up with her primary care provider. She will also continue to look for orthopedic follow-up.
[2020-03-21 13:51] VITALS: BP 140/93; PULSE 89
== END 2020-03-21 13:20 | disposition home or self-care (01) ==
LOC: MW.ED 11:45
DX: S92.252A Displaced fracture of navicular [scaphoid] of left foot, initial encounter for closed fracture (principal); I10 Essential (primary) hypertension; E66.9 Obesity, unspecified; F41.0 Panic disorder [episodic paroxysmal anxiety]; F32.9 Major depressive disorder, single episode, unspecified; G43.909 Migraine, unspecified, not intractable, without status migrainosus; Z68.29 Body mass index [BMI] 29.0-29.9, adult; Z91.018 Allergy to other foods; Z88.3 Allergy status to other anti-infective agents; Z79.899 Other long term (current) drug therapy; X58.XXXA Exposure to other specified factors, initial encounter
CPT/HCPCS: 29515; 99283; A9270; 99282

== ENCOUNTER 2021-02-26 17:52 | Emergency (ER) | payer BC ==
[2021-02-26] MEDS ORDERED: Sodium Chloride 0.9% 10 ML Syringe FLUSH PRN (17:54)
[2021-02-26] MEDS ORDERED: Ondansetron 4 MG/2 ML SDV IVPUSH ONE (17:54)
[2021-02-26] MEDS ORDERED: Sodium Chloride 0.9% 2.5 ML Syringe FLUSH PRN (17:54)
[2021-02-26] MEDS ORDERED: Morphine 4 MG/ML Syringe IVPUSH ONE ×3 (17:54→20:28)
[2021-02-26] MEDS ORDERED: Sodium Chloride 0.9% 1,000 ML IV ONE ×2 (17:54→18:37)
--- NOTE | 2021-02-26 18:01 | EDM.PDOC ---
<ParvezTej gil - Last Filed: 02/26/21 19:09> ED HPI GENERAL MEDICAL PROBLEM - General Chief Complaint: Flank Pain Stated Complaint: POSSIBLE KIDNEY STONE Time Seen by Provider: 02/26/21 17:53 Source of Information: Reports: Patient History Limitations: Reports: No Limitations - History of Present Illness INITIAL COMMENTS - FREE TEXT/NARRATIVE: 30-year-old female past medical history kidney stones, hypertension, depression, anxiety presents for left flank pain. Patient notes that she has long history of recurrent kidney stones. She is typically able to pass them on her own and has never required intervention for her stones. She notes that she began to experience the left flank pain roughly 4 days ago which seems to be worsening. Pain was initially on and off but now is constant. Pain is now also radiating into her left lower quadrant and left suprapubic groin. Patient notes nausea with a couple episodes of nonbloody emesis. She denies fevers. She denies dysuria. She has noted hematuria Left Flank Pain Score (Numeric/FACES): 10 - Related Data Allergies Allergy/AdvReac Type Severity Reaction Status Date / Time NSAIDS (Non-Steroidal Allergy Anaphylactic Verified 03/21/20 12:01 Anti-Inflamma Shock strawberry Allergy Swelling Verified 03/21/20 12:01 Home Meds: Home Meds Propranolol [Inderal LA] 1 tab PO DAILY 12/30/19 [History] Desvenlafaxine Succinate [Pristiq ER] 200 mg PO DAILY 03/18/20 [History] clonazePAM [Clonazepam] 1 mg PO ASDIRECTED 03/18/20 [History] traZODone HCl [Trazodone HCl] 50 mg PO DAILY 03/18/20 [History] Acetaminophen/oxyCODONE [Percocet 325-5 MG] 1 each PO Q6H PRN #12 tab 02/26/21 [Rx] Ondansetron [Zofran ODT] 4 mg PO Q6H PRN #12 tab.dis 02/26/21 [Rx] cephALEXin [Keflex] 500 mg PO Q8H #30 cap 02/26/21 [Rx] Past Medical History HEENT History: Reports: Cataract, Impaired Vision Cardiovascular History: Reports: Hypertension Respiratory History: Reports: None Gastrointestinal History: Reports: None Genitourinary History: Reports: Other (See Below) Other Genitourinary History: hydronephrosis 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, Musculoskeletal History: Reports: None Neurological History: Reports: Concussion, Migraines Psychiatric History: Reports: Anxiety, Depression, Panic Attack Endocrine/Metabolic History: Reports: Obesity/BMI 30+ 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 Bsw: None Hematologic History: Reports: Anemia Immunologic History: Reports: None Oncologic (Cancer) History: Reports: None Dermatologic History: Reports: None - Infectious Disease History Infectious Disease History: Reports: None - Past Surgical History Head Surgeries/Procedures: Reports: None HEENT Surgical History: Reports: Oral Surgery Female Surgical History: Reports: Other (See Below) Other Female Surgeries/Procedures: cyst removed laparoscopy Social & Family History - Family History HEENT: Reports: Cataract, Impaired Vision Cardiac: Reports: High Cholesterol, Hypertension Respiratory: Reports: Asthma GI: Reports: Cholelithiasis : Reports: None OBGYN: Reports: , Recurrent Spontaneous Neurological: Reports: CVA, Dementia, Migraines Psychiatric: Reports: Anxiety, Panic Attack Endocrine/Metabolic: Reports: None Hematologic: Reports: None Immunologic: Reports: None Dermatologic: Reports: None Oncologic: Reports: Lung - Caffeine Use Caffeine Use: Reports: Soda ED ROS GENERAL - Review of Systems Review Of Systems: Comprehensive ROS is negative, except as noted in HPI. ED EXAM, GENERAL - Physical Exam Exam: See Below Exam Limited By: No Limitations General Appearance: Alert, WD/WN, No Apparent Distress Ears: Hearing Grossly Normal Throat/Mouth: Normal Voice, No Airway Compromise Head: Atraumatic, Normocephalic Neck: Normal Inspection Respiratory/Chest: No Respiratory Distress, Lungs Clear, Normal Breath Sounds, No Accessory Muscle Use Cardiovascular: Normal Peripheral Pulses, Regular Rate, Rhythm GI/Abdominal: Soft, Non-Tender Back Exam: CVA Tenderness (L). No: CVA Tenderness (R) Extremities: Normal Inspection Neurological: Alert, Normal Cognition, Normal Gait Psychiatric: Normal Affect, Normal Mood Skin Exam: Warm, Dry, Intact, Normal Color Course - Re-Assessments/Exams Free Text/Narrative Re-Assessment/Exam: 02/26/21 18:07 We will treat patient's pain. Will get basic labs including urinalysis to look for hematuria and signs of UTI. Will get CT abdomen pelvis without contrast as patient symptoms are most consistent with kidney stone. 02/26/21 18:34 Urinalysis with evidence of urinary tract infection. Ceftriaxone ordered. 02/26/21 19:09 Patient care signed out to Dr. Hernandez pending labs and imaging Departure - Departure Disposition: Home, Self-Care 01 Clinical Impression: UTI, Urinary tract infectious disease, Pyelonephritis - Discharge Information Prescriptions: cephALEXin [Keflex] 500 mg PO Q8H #30 cap Acetaminophen/oxyCODONE [Percocet 325-5 MG] 1 each PO Q6H PRN #12 tab PRN Reason: Pain (Moderate 4-6) Ondansetron [Zofran ODT] 4 mg PO Q6H PRN #12 tab.dis PRN Reason: Vomiting Instructions: Urinary Tract Infection, Adult, Pyelonephritis, Adult Referrals: Panfilo Juarez MD [Primary Care Provider] - 3 Days Forms: ED Department Discharge Additional Instructions: The need for follow-up, as well as the timing and circumstances, are variable depending upon the specifics of your emergency department visit. If you don't have a primary care physician on staff, we will provide you with a referral. We always advise you to contact your personal physician following an emergency department visit to inform them of the circumstance of the visit and for follow-up with them and/or the need for any referrals to a consulting specialist. The emergency department will also refer you to a specialist when appropriate. This referral assures that you have the opportunity for follow-up care with a specialist. All of these measure are taken in an effort to provide you with optimal care, which includes your follow-up. Under all circumstances we always encourage you to contact your private physician who remains a resource for coordinating your care. When calling for follow-up care, please make the office aware that this follow-up is from your recent emergency room visit. If for any reason you are refused follow-up, please contact the [facility] Emergency Department at and asked to speak to the emergency department charge nurse. If you do not have a primary care doctor, please follow up with the clinics below within 3-5 days. [facility] - Primary Care [address] [place] [id number] [facility] [address] [place] [id number] <Fede Hernandez - Last Filed: 02/26/21 20:34> Course - Vital Signs Last Recorded V/S: Last Vital Signs Temp 97.3 F 02/26/21 18:00 Pulse 98 02/26/21 20:02 Resp 18 02/26/21 20:02 BP 124/72 02/26/21 20:02 Pulse Ox 98 02/26/21 20:02 - Orders/Labs/Meds Orders: Active Orders 24 hr Category Date Time Status Morphine Med 02/26/21 20:28 Once 4 mg IVPUSH ONETIME ONE Sodium Chloride 0.9% [Saline Flush] Med 02/26/21 17:54 Active 10 ml FLUSH ASDIRECTED PRN Sodium Chloride 0.9% [Saline Flush] Med 02/26/21 17:54 Active 2.5 ml FLUSH ASDIRECTED PRN Saline Lock Insert [OM.PC] Stat Oth 02/26/21 17:54 Ordered Medication Orders Sodium Chloride (Sodium Chloride 0.9% 10 Ml Syringe) 10 ml FLUSH ASDIRECTED PRN PRN Reason: Keep Vein Open Last Admin: 02/26/21 18:40 Dose: 10 ml Documented by: IHSAN Sodium Chloride (Sodium Chloride 0.9% 2.5 Ml Syringe) 2.5 ml FLUSH ASDIRECTED PRN PRN Reason: Keep Vein Open Last Admin: 02/26/21 18:39 Dose: 2.5 ml Documented by: IHSAN Labs: Laboratory Tests 02/26/21 02/26/21 02/26/21 Range/Units 18:15 18:15 18:40 WBC 6.92 (4.0-11.0) K/uL RBC 4.12 L (4.30-5.90) M/uL Hgb 13.9 (12.0-16.0) g/dL Hct 42.1 (36.0-46.0) % MCV 102.2 H (80.0-98.0) fL MCH 33.7 H (27.0-32.0) pg MCHC 33.0 (31.0-37.0) g/dL RDW Std Deviation 49.0 (28.0-62.0) fl RDW Coeff of David 13 (11.0-15.0) % Plt Count 214 (150-400) K/uL MPV 10.30 (7.40-12.00) fL Neut % (Auto) 89.5 H (48.0-80.0) % Lymph % (Auto) 6.1 L (16.0-40.0) % Faulk % (Auto) 4.0 (0.0-15.0) % Eos % (Auto) 0.3 (0.0-7.0) % Baso % (Auto) 0.1 (0.0-1.5) % Neut # (Auto) 6.2 H (1.4-5.7) K/uL Lymph # (Auto) 0.4 L (0.6-2.4) K/uL Faulk # (Auto) 0.3 (0.0-0.8) K/uL Eos # (Auto) 0.0 (0.0-0.7) K/uL Baso # (Auto) 0.0 (0.0-0.1) K/uL Nucleated RBC % 0.0 /100WBC Nucleated RBCs # 0 K/uL Lactate (0.20-2.00) mmol/L Sodium (136-145) mmol/L Potassium (3.5-5.1) mmol/L Chloride (98-107) mmol/L Carbon Dioxide (21.0-32.0) mmol/L BUN (7.0-18.0) mg/dL Creatinine (0.6-1.0) mg/dL Est Cr Clr Drug Dosing mL/min Estimated GFR (MDRD) ml/min Glucose (74-106) mg/dL Calcium (8.5-10.1) mg/dL Total Bilirubin (0.2-1.0) mg/dL AST (15-37) IU/L ALT (14-63) IU/L Alkaline Phosphatase (46-116) U/L Total Protein (6.4-8.2) g/dL Albumin (3.4-5.0) g/dL Globulin (2.6-4.0) g/dL Albumin/Globulin Ratio (0.9-1.6) Urine Color YELLOW Urine Appearance CLOUDY Urine pH 5.0 (5.0-8.0) Ur Specific Stafford 1.015 (1.001-1.035) Urine Protein 30 H (NEGATIVE) mg/dL Urine Glucose (UA) NEGATIVE (NEGATIVE) mg/dL Urine Ketones 15 H (NEGATIVE) mg/dL Urine Occult Blood MODERATE H (NEGATIVE) Urine Nitrite POSITIVE H (NEGATIVE) Urine Bilirubin SMALL H (NEGATIVE) Urine Ictotest NEGATIVE Urine Urobilinogen 0.2 (<2.0) EU/dL Ur Leukocyte Esterase LARGE H (NEGATIVE) Urine RBC 5-10 (0-2/HPF) Urine WBC 60-70 (0-5/HPF) Ur Epithelial Cells MANY (NONE-FEW) Urine Bacteria 2+ H (NEGATIVE) Urine HCG, Qual NEGATIVE (NEGATIVE) 02/26/21 02/26/21 Range/Units 18:40 18:40 WBC (4.0-11.0) K/uL RBC (4.30-5.90) M/uL Hgb (12.0-16.0) g/dL Hct (36.0-46.0) % MCV (80.0-98.0) fL MCH (27.0-32.0) pg MCHC (31.0-37.0) g/dL RDW Std Deviation (28.0-62.0) fl RDW Coeff of David (11.0-15.0) % Plt Count (150-400) K/uL MPV (7.40-12.00) fL Neut % (Auto) (48.0-80.0) % Lymph % (Auto) (16.0-40.0) % Faulk % (Auto) (0.0-15.0) % Eos % (Auto) (0.0-7.0) % Baso % (Auto) (0.0-1.5) % Neut # (Auto) (1.4-5.7) K/uL Lymph # (Auto) (0.6-2.4) K/uL Faulk # (Auto) (0.0-0.8) K/uL Eos # (Auto) (0.0-0.7) K/uL Baso # (Auto) (0.0-0.1) K/uL Nucleated RBC % /100WBC Nucleated RBCs # K/uL Lactate 1.3 (0.20-2.00) mmol/L Sodium 134 L (136-145) mmol/L Potassium 3.2 L (3.5-5.1) mmol/L Chloride 99 (98-107) mmol/L Carbon Dioxide 22.1 (21.0-32.0) mmol/L BUN 6 L (7.0-18.0) mg/dL Creatinine 0.9 (0.6-1.0) mg/dL Est Cr Clr Drug Dosing 77.49 mL/min Estimated GFR (MDRD) > 60.0 ml/min Glucose 110 H (74-106) mg/dL Calcium 8.7 (8.5-10.1) mg/dL Total Bilirubin 1.1 H (0.2-1.0) mg/dL AST 50 H (15-37) IU/L ALT 59 (14-63) IU/L Alkaline Phosphatase 145 H (46-116) U/L Total Protein 7.6 (6.4-8.2) g/dL Albumin 3.0 L (3.4-5.0) g/dL Globulin 4.6 H (2.6-4.0) g/dL Albumin/Globulin Ratio 0.7 L (0.9-1.6) Urine Color Urine Appearance Urine pH (5.0-8.0) Ur Specific Stafford (1.001-1.035) Urine Protein (NEGATIVE) mg/dL Urine Glucose (UA) (NEGATIVE) mg/dL Urine Ketones (NEGATIVE) mg/dL Urine Occult Blood (NEGATIVE) Urine Nitrite (NEGATIVE) Urine Bilirubin (NEGATIVE) Urine Ictotest Urine Urobilinogen (<2.0) EU/dL Ur Leukocyte Esterase (NEGATIVE) Urine RBC (0-2/HPF) Urine WBC (0-5/HPF) Ur Epithelial Cells (NONE-FEW) Urine Bacteria (NEGATIVE) Urine HCG, Qual (NEGATIVE) Meds: Medications Generic Name Dose Route Start Last Admin Trade Name Freq PRN Reason Stop Dose Admin Sodium Chloride 10 ml 02/26/21 17:54 02/26/21 18:40 Sodium Chloride 0.9% 10 Ml Syringe FLUSH 10 ml ASDIRECTED PRN Administration Keep Vein Open Sodium Chloride 2.5 ml 02/26/21 17:54 02/26/21 18:39 Sodium Chloride 0.9% 2.5 Ml Syringe FLUSH 2.5 ml ASDIRECTED PRN Administration Keep Vein Open Discontinued Medications Generic Name Dose Route Start Last Admin Trade Name Jayjay PRN Reason Stop Dose Admin Sodium Chloride 1,000 mls @ 999 mls/hr 02/26/21 17:54 02/26/21 18:39 Normal Saline IV 02/26/21 18:54 999 mls/hr .Bolus ONE Administration Ceftriaxone Sodium 1 gm/ 50 mls @ 200 mls/hr 02/26/21 18:34 02/26/21 19:07 Sodium Chloride IV 02/26/21 18:48 Not Given ONETIME ONE Sodium Chloride 1,000 mls @ 999 mls/hr 02/26/21 18:37 02/26/21 19:24 Normal Saline IV 02/26/21 19:37 999 mls/hr .Bolus ONE Administration Ceftriaxone Sodium/Dextrose 1 50 mls @ 100 mls/hr 02/26/21 19:07 02/26/21 19:24 gm/ Premix IV 02/26/21 19:36 100 mls/hr ONETIME ONE Administration Morphine Sulfate 4 mg 02/26/21 17:54 02/26/21 18:39 Morphine 4 Mg/Ml Syringe IVPUSH 02/26/21 17:55 4 mg ONETIME ONE Administration Morphine Sulfate 4 mg 02/26/21 19:27 02/26/21 19:34 Morphine 4 Mg/Ml Syringe IVPUSH 02/26/21 19:28 4 mg ONETIME ONE Administration Ondansetron HCl 4 mg 02/26/21 17:54 02/26/21 18:39 Ondansetron 4 Mg/2 Ml Sdv IVPUSH 02/26/21 17:55 4 mg ONETIME ONE Administration - Re-Assessments/Exams Free Text/Narrative Re-Assessment/Exam: 02/26/21 19:09 This patient was signed out to me from Dr. Charlton at this time. I promptly performed a detailed physical examination, my examination was performed after ED treatments were initiated by the signout provider. Patient has been under the care of the previous provider up until this point. 02/26/21 20:29 After IV medication in the ER, she feels better and is currently stable for discharge. I performed a repeat exam and did not appreciate new abnormal findings. I advised the patient to return to the ER for reevaluation if symptoms worsened, including fever, worsening pain, or any other worrisome symptoms. I instructed the patient to follow up with their PCP within 2-3 days. MEDICAL DECISION MAKING: I reviewed the patients past medical records, lab and radiographic findings. I discussed the case with the patient. My differential diagnosis included: UTI, pyelonephritis, ureterolithiasis. CT did not demons trate ureteral stone. Urine demonstrated UTI. She was given IV Rocephin in the ED, her pain improved with IV morphine. I offered her admission for intractable left flank pain from pyelonephritis. Patient has 5 kids at home that she cares for, to with special needs, her is debilitated with back pain. She elects to be discharged and will return for worsening pain. Departure - Departure Time of Disposition: 20:31 Condition: Good - Discharge Information *PRESCRIPTION DRUG MONITORING PROGRAM REVIEWED*: Not Applicable *COPY OF PRESCRIPTION DRUG MONITORING REPORT IN PATIENT JAMES: Not Applicable Sepsis Event Note (ED) - Focused Exam Vital Signs: Vital Signs Temp Pulse Resp BP Pulse Ox 02/26/21 20:02 98 18 124/72 98 02/26/21 18:00 97.3 F 133 H 135/83 95 - My Orders Last 24 Hours: My Active Orders 02/26/21 20:28 Morphine 4 mg IVPUSH ONETIME ONE - Assessment/Plan Last 24 Hours: My Active Orders 02/26/21 20:28 Morphine 4 mg IVPUSH ONETIME ONE
[2021-02-26] MEDS ORDERED: cefTRIAXone 1 GM in Sodium Chloride 0.9% 50 ML IV ONE (18:34)
[2021-02-26 19:04] LABS: BLOOD UREA NITROGEN,BUN 6 mg/dL (7.0-18.0); CARBON DIOXIDE,CO2 22.1 mmol/L (21.0-32.0); CHLORIDE,CL 99 mmol/L (98-107); GLUCOSE RANDOM 110 mg/dL (74-106); POTASSIUM,K 3.2 mmol/L (3.5-5.1); SODIUM,NA 134 mmol/L (136-145)
[2021-02-26] MEDS ORDERED: cefTRIAXone 1 GM in Premix Bag 1 BAG IV ONE (19:07)
--- NOTE | 2021-02-26 20:19 | CT ---
Indication: Left flank pain. History of renal stones. Technique: Multiple contiguous axial images were obtained from the lung bases through the symphysis pubis without intravenous contrast enhancement. Please note that all CT scans at this facility use dose modulation, iterative reconstruction, and/or weight-based dosing when appropriate to reduce radiation dose to as low as reasonably achievable. Comparison: May 01, 2021. Findings: Bibasilar atelectasis is identified. The heart is normal in size. No pericardial effusion is identified. Small hiatal hernia is identified. Diffuse fatty infiltration of the liver is identified. The liver measures 19 centimeters in maximum dimension. In no intrahepatic biliary ductal dilatation is identified. The unenhanced spleen, pancreas, gallbladder, adrenals, and kidneys are normal. No intrahepatic biliary ductal dilatation is identified. Minimal perinephric fat stranding is identified on the left. No renal calculi are identified. No ureteral calculi are identified. A tiny left renal calculus is identified, nonobstructing. The urinary bladder is normal. The uterus is grossly normal. No free air or free fluid is identified within the abdomen or pelvis. The small and large bowel are normal in caliber. The aorta is normal in caliber. No lytic or blastic lesions of the spine are identified. Impression: Diffuse fatty infiltration of the liver. Borderline hepatomegaly No obstructing renal/ureteral calculi. No hydronephrosis or hydroureter. Mild fat stranding is identified surrounding the left kidney. Pyelonephritis cannot be completely excluded as no contrast was given on this exam Please note that all CT scans at this facility use dose modulation, iterative reconstruction, and/or weight-based dosing when appropriate to reduce radiation dose to as low as reasonably achievable. Dictated by Emma Rock MD @ Feb 26 2021 8:08PM Signed by Dr. Emma Rock @ Feb 26 2021 8:17PM
[2021-02-26 21:11] VITALS: BP 115/57; PULSE 97
== END 2021-02-26 20:30 | disposition home or self-care (01) ==
LOC: MW.ED 17:52
DX: N12 Tubulo-interstitial nephritis, not specified as acute or chronic (principal); I10 Essential (primary) hypertension; E66.9 Obesity, unspecified; Z68.27 Body mass index [BMI] 27.0-27.9, adult; Z88.8 Allergy status to other drugs, medicaments and biological substances; Z91.018 Allergy to other foods
CPT/HCPCS: 36415; 74176; 80053; 81001; 81025; 83605; 85025; 96365; 96375; 96376; 99284; J0696; J2270; J2405; J7030

== ENCOUNTER 2021-06-17 22:27 | Observation (INO) | payer BC ==
[2021-06-17] MEDS ORDERED: Sodium Chloride 0.9% 2.5 ML Syringe FLUSH PRN (23:57)
[2021-06-17] MEDS ORDERED: Sodium Chloride 0.9% 10 ML Syringe FLUSH PRN (23:57)
[2021-06-18] MEDS ORDERED: cefTRIAXone 1 GM in Premix Bag 1 BAG IV ONE (00:08)
[2021-06-18] MEDS ORDERED: LORazepam 2 MG/ML SDV IVPUSH ONE (00:08)
[2021-06-18] MEDS ORDERED: Morphine 4 MG/ML Syringe IVPUSH ONE (00:08)
[2021-06-18] MEDS ORDERED: Ondansetron 4 MG/2 ML SDV IVPUSH ONE (00:35)
[2021-06-18] MEDS ORDERED: VANCOmycin 1.5 GM/300 ML 1.5 GM in Premix Bag 1 BAG IV ONE ×2 (00:42→01:00)
[2021-06-18 00:46] LABS: BLOOD UREA NITROGEN,BUN 5 mg/dL (7.0-18.0); CARBON DIOXIDE,CO2 26.4 mmol/L (21.0-32.0); CHLORIDE,CL 102 mmol/L (98-107); GLUCOSE RANDOM 88 mg/dL (74-106); POTASSIUM,K 3.7 mmol/L (3.5-5.1); SODIUM,NA 139 mmol/L (136-145)
[2021-06-18] MEDS ORDERED: HYDROmorphone 2 MG/ML Syringe IVPUSH ONE (01:48)
--- NOTE | 2021-06-18 01:50 | EDM.PDOC ---
ED HPI GENERAL MEDICAL PROBLEM - General Chief Complaint: Upper Extremity Injury/Pain Stated Complaint: BITE ON FINGER Time Seen by Provider: 06/17/21 23:54 - History of Present Illness INITIAL COMMENTS - FREE TEXT/NARRATIVE: History of present illness: 30-year-old female presenting with right hand infection. She thinks she must have been bitten by an insect although she did not see or feel any insect bite her. She first noticed the lesion 2 days ago and it continued to become more red and swollen. She went to the walk-in clinic earlier today where she received shot of Rocephin, however she noticed that the redness continued to bend and started to spread upward into her hand/wrist. While she has been in the emergency department she noted it expanding more proximally up into the forearm. She has not had any fevers or chills. She does report that she has had some pain and swelling in the hand as well. Review of systems: As per history of present illness and below otherwise all systems reviewed and negative. Past medical history: As per history of present illness and as reviewed below otherwise noncontributory. Surgical history: As per history of present illness and as reviewed below otherwise noncontr ibutory. Social history: No reported history of drug or alcohol abuse. Family history: As per history of present illness and as reviewed below otherwise noncontributory. Physical exam: GEN: no acute distress, well appearing HEENT: Atraumatic, normocephalic, mucous membranes moist, Neck: supple, nontender, trachea midline. Lungs: No respiratory distress. Heart: RRR Abdomen: Nondistended. Back: Full range of motion Extremities: Neurovascularly intact. Right hand with apparent insect bite wound in right ring finger. The area is circular and red and raised though not fluctuant with no discharge either. There is redness surrounding this area and extending proximally over the hand, wrist and in a streak up the forearm. There is no limitation of the hand or wrist. She does have pain while making a fist and mild swelling in her hand and fingers though no limitation in extension or flexion with passive range of motion. She does have increased pain during active range of motion flexion and extension of the hand/fingers but she is able to make a fist and has intact strength against resistance in both flexion and extension of the right hand and fingers. Distally neurovascularly intact. Neuro: Awake, alert, oriented. Neuro Exam nonfocal. Skin: warm, dry, insect bite right hand with surrounding erythema and streaking. Diagnostics: Labs Therapeutics: IV antibiotics and pain medication MDM: Suspect insect bite with infection and now cellulitis, spreading upward into arm. No flexor tenosynovitis. No signs of joint infection or bone invasion. Patient otherwise well-appearing and afebrile. Patient was given pain medications and felt much better after 0.5 mg of Dilaudid. She was given Rocephin and vancomycin here, however after the vancomycin was started she did develop some swelling in her eye. She does report that she has many medication allergies and one of her allergic reactions is swelling in that left eye although she has never had any known allergy to vancomycin and has not received this medication in the past. The vancomycin was stopped and Benadryl was given. Discussed recommendation for admission with the patient for IV antibiotics. She agrees with this plan. Use was discussed with the admitting physician and the change in antibiotic/allergic reaction was discussed and daptomycin was requested and was ordered. Impression: Spreading cellulitis, infected insect bite Plan: Admit to hospital Definitive disposition and diagnosis as appropriate pending reevaluation and review of above. Right Hand Pain Score (Numeric/FACES): 8 - Related Data Allergies Allergy/AdvReac Type Severity Reaction Status Date / Time NSAIDS (Non-Steroidal Allergy Anaphylactic Verified 06/18/21 03:02 Anti-Inflamma Shock strawberry Allergy Swelling Verified 06/18/21 03:02 vancomycin Allergy Swollen Verified 06/18/21 03:02 Eyes Home Meds: Home Meds Propranolol [Inderal LA] 1 tab PO DAILY 12/30/19 [History] Desvenlafaxine Succinate [Pristiq ER] 200 mg PO DAILY 03/18/20 [History] clonazePAM [Clonazepam] 1 mg PO ASDIRECTED 03/18/20 [History] traZODone HCl [Trazodone HCl] 50 mg PO ASDIRECTED 03/18/20 [History] Pantoprazole Sodium [Protonix] 20 mg PO DAILY 06/18/21 [History] Past Medical History - Past Health History Medical/Surgical History: Denies Medical/Surgical History HEENT History: Reports: Cataract, Impaired Vision Cardiovascular History: Reports: Hypertension Respiratory History: Reports: None Gastrointestinal History: Reports: None Genitourinary History: Reports: Other (See Below) Other Genitourinary History: hydronephrosis 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, Musculoskeletal History: Reports: None Neurological History: Reports: Concussion, Migraines Psychiatric History: Reports: Anxiety, Depression, Panic Attack Endocrine/Metabolic History: Reports: Obesity/BMI 30+ 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 Hematologic History: Reports: Anemia Immunologic History: Reports: None Oncologic (Cancer) History: Reports: None Dermatologic History: Reports: None - Infectious Disease History Infectious Disease History: Reports: Chicken Pox - Past Surgical History Head Surgeries/Procedures: Reports: None HEENT Surgical History: Reports: Oral Surgery Female Surgical History: Reports: Other (See Below) Other Female Surgeries/Procedures: cyst removed laparoscopy Social & Family History - Family History HEENT: Reports: Cataract, Impaired Vision Cardiac: Reports: High Cholesterol, Hypertension Respiratory: Reports: Asthma GI: Reports: Cholelithiasis : Reports: None OBGYN: Reports: , Recurrent Spontaneous Neurological: Reports: CVA, Dementia, Migraines Psychiatric: Reports: Anxiety, Panic Attack Endocrine/Metabolic: Reports: None Hematologic: Reports: None Immunologic: Reports: None Dermatologic: Reports: None Oncologic: Reports: Lung - Tobacco Use Tobacco Use Status *Q: Current Every Day Tobacco User Years of Tobacco use: 20 Packs/Tins Daily: 0.5 - Caffeine Use Caffeine Use: Reports: Coffee - Alcohol Use Days Per Week of Alcohol Use: 4 Number of Drinks Per Day: 2 Total Drinks Per Week: 8 - Recreational Drug Use Recreational Drug Use: No Review of Systems - Review of Systems Review Of Systems: See Below (See HPI) ED EXAM, GENERAL - Physical Exam Exam: See Below (See HPI) Course - Vital Signs Last Recorded V/S: Last Vital Signs Temp 97.3 F 06/18/21 03:00 Pulse 74 06/18/21 03:00 Resp 16 06/18/21 03:00 BP 110/68 06/18/21 03:00 Pulse Ox 95 06/18/21 03:00 - Orders/Labs/Meds Orders: Active Orders 24 hr Category Date Time Status CULTURE BLOOD [BC] Stat Lab 06/17/21 23:58 Received CULTURE BLOOD [BC] Stat Lab 06/17/21 23:58 Received Sodium Chloride 0.9% [Saline Flush] Med 06/17/21 23:57 Active 10 ml FLUSH ASDIRECTED PRN Sodium Chloride 0.9% [Saline Flush] Med 06/17/21 23:57 Active 2.5 ml FLUSH ASDIRECTED PRN Blood Culture x2 Reflex Set [OM.PC] Stat Oth 06/17/21 23:57 Ordered Saline Lock Insert [OM.PC] Stat Ot 06/17/21 23:57 Ordered Medication Orders Clonazepam (Clonazepam 1 Mg Tab) 1 mg PO ASDIRECTED VERNON Hydromorphone HCl (Hydromorphone 1 Mg/Ml Syringe) 0.5 mg IVPUSH Q2H PRN PRN Reason: Pain Last Admin: 06/18/21 04:30 Dose: 0.5 mg Documented by: ALEK Daptomycin 600 mg/ Sodium (Chloride) 20 mls @ 300 mls/hr IVPUSH DAILY VERNON Last Admin: 06/18/21 03:30 Dose: 300 mls/hr Documented by: ALEK Sodium Chloride (Sodium Chloride 0.9% 10 Ml Syringe) 10 ml FLUSH ASDIRECTED PRN PRN Reason: Keep Vein Open Sodium Chloride (Sodium Chloride 0.9% 2.5 Ml Syringe) 2.5 ml FLUSH ASDIRECTED PRN PRN Reason: Keep Vein Open Labs: Laboratory Tests 06/18/21 06/18/21 06/18/21 Range/Units 00:15 00:15 00:15 WBC 9.93 (4.0-11.0) K/uL RBC 4.13 L (4.30-5.90) M/uL Hgb 14.3 (12.0-16.0) g/dL Hct 42.0 (36.0-46.0) % MCV 101.7 H (80.0-98.0) fL MCH 34.6 H (27.0-32.0) pg MCHC 34.0 (31.0-37.0) g/dL RDW Std Deviation 48.6 (28.0-62.0) fl RDW Coeff of David 13 (11.0-15.0) % Plt Count 299 (150-400) K/uL MPV 11.10 (7.40-12.00) fL Neut % (Auto) 56.9 (48.0-80.0) % Lymph % (Auto) 29.3 (16.0-40.0) % [place] % (Auto) 10.5 (0.0-15.0) % Eos % (Auto) 2.6 (0.0-7.0) % Baso % (Auto) 0.7 (0.0-1.5) % Neut # (Auto) 5.7 (1.4-5.7) K/uL Lymph # (Auto) 2.9 H (0.6-2.4) K/uL [place] # (Auto) 1.0 H (0.0-0.8) K/uL Eos # (Auto) 0.3 (0.0-0.7) K/uL Baso # (Auto) 0.1 (0.0-0.1) K/uL Nucleated RBC % 0.0 /100WBC Nucleated RBCs # 0 K/uL Sodium 139 (136-145) mmol/L Potassium 3.7 (3.5-5.1) mmol/L Chloride 102 (98-107) mmol/L Carbon Dioxide 26.4 (21.0-32.0) mmol/L BUN 5 L (7.0-18.0) mg/dL Creatinine 0.7 (0.6-1.0) mg/dL Est Cr Clr Drug Dosing 99.63 mL/min Estimated GFR (MDRD) > 60.0 ml/min Glucose 88 (74-106) mg/dL Calcium 8.8 (8.5-10.1) mg/dL HCG, Qual NEGATIVE (NEG) SARS-CoV-2 RNA (NITIN) (NEGATIVE) 06/18/21 Range/Units 00:20 WBC (4.0-11.0) K/uL RBC (4.30-5.90) M/uL Hgb (12.0-16.0) g/dL Hct (36.0-46.0) % MCV (80.0-98.0) fL MCH (27.0-32.0) pg MCHC (31.0-37.0) g/dL RDW Std Deviation (28.0-62.0) fl RDW Coeff of David (11.0-15.0) % Plt Count (150-400) K/uL MPV (7.40-12.00) fL Neut % (Auto) (48.0-80.0) % Lymph % (Auto) (16.0-40.0) % [place] % (Auto) (0.0-15.0) % Eos % (Auto) (0.0-7.0) % Baso % (Auto) (0.0-1.5) % Neut # (Auto) (1.4-5.7) K/uL Lymph # (Auto) (0.6-2.4) K/uL [place] # (Auto) (0.0-0.8) K/uL Eos # (Auto) (0.0-0.7) K/uL Baso # (Auto) (0.0-0.1) K/uL Nucleated RBC % /100WBC Nucleated RBCs # K/uL Sodium (136-145) mmol/L Potassium (3.5-5.1) mmol/L Chloride (98-107) mmol/L Carbon Dioxide (21.0-32.0) mmol/L BUN (7.0-18.0) mg/dL Creatinine (0.6-1.0) mg/dL Est Cr Clr Drug Dosing mL/min Estimated GFR (MDRD) ml/min Glucose (74-106) mg/dL Calcium (8.5-10.1) mg/dL HCG, Qual (NEG) SARS-CoV-2 RNA (NITIN) NEGATIVE (NEGATIVE) Meds: Medications Generic Name Dose Route Start Last Admin Trade Name Freq PRN Reason Stop Dose Admin Clonazepam 1 mg 06/18/21 04:00 Clonazepam 1 Mg Tab PO ASDIRECTED VERNON Hydromorphone HCl 0.5 mg 06/18/21 03:53 06/18/21 04:30 Hydromorphone 1 Mg/Ml Syringe IVPUSH 0.5 mg Q2H PRN Administration Pain Daptomycin 600 mg/ Sodium 20 mls @ 300 mls/hr 06/18/21 02:00 06/18/21 03:30 Chloride IVPUSH 300 mls/hr DAILY VERNON Administration Sodium Chloride 10 ml 06/17/21 23:57 Sodium Chloride 0.9% 10 Ml Syringe FLUSH ASDIRECTED PRN Keep Vein Open Sodium Chloride 2.5 ml 06/17/21 23:57 Sodium Chloride 0.9% 2.5 Ml Syringe FLUSH ASDIRECTED PRN Keep Vein Open Discontinued Medications Generic Name Dose Route Start Last Admin Trade Name Freq PRN Reason Stop Dose Admin Diphenhydramine HCl 25 mg 06/18/21 02:26 06/18/21 02:30 Diphenhydramine 50 Mg/Ml Sdv IVPUSH 06/18/21 02:27 25 mg ONETIME ONE Administration Hydromorphone HCl 0.5 mg 06/18/21 01:48 06/18/21 02:01 Hydromorphone 2 Mg/Ml Syringe IVPUSH 06/18/21 01:49 0.5 mg ONETIME ONE Administration Ceftriaxone Sodium/Dextrose 1 50 mls @ 100 mls/hr 06/18/21 00:08 06/18/21 00:34 gm/ Premix IV 06/18/21 00:37 100 mls/hr ONETIME ONE Administration Vancomycin HCl 1,500 mg/ 100 mls @ 100 mls/hr 06/18/21 00:08 06/18/21 00:52 Sodium Chloride IV 06/18/21 01:07 Not Given ONETIME ONE Vancomycin HCl 1.5 gm/ Premix 300 mls @ 200 mls/hr 06/18/21 00:42 IV 06/18/21 02:11 ONETIME ONE Vancomycin HCl 1.5 gm/ Premix 300 mls @ 200 mls/hr 06/18/21 01:00 06/18/21 01:21 IV 06/18/21 02:29 200 mls/hr ONETIME ONE Administration Protocol Lorazepam 1 mg 06/18/21 00:08 06/18/21 00:34 Lorazepam 2 Mg/Ml Sdv IVPUSH 06/18/21 00:09 1 mg ONETIME ONE Administration Morphine Sulfate 4 mg 06/18/21 00:08 06/18/21 00:34 Morphine 4 Mg/Ml Syringe IVPUSH 06/18/21 00:09 4 mg ONETIME ONE Administration Ondansetron HCl 4 mg 06/18/21 00:35 06/18/21 00:39 Ondansetron 4 Mg/2 Ml Sdv IVPUSH 06/18/21 00:36 4 mg ONETIME ONE Administration - Re-Assessments/Exams Free Text/Narrative Re-Assessment/Exam: 06/18/21 01:[address] Bloom for admission. He accepts the case. 06/18/21 01:57 The patient developed some swelling in the eye while receiving vancomycin IV. Vancomycin was held. This was discussed with Dr. Bloom who request to start daptomycin. This was ordered. I reassessed the patient. She is in no distress. Her left eye minimally swollen. Her pain is significantly improved after the Dilaudid. She reports she is very comfortable at this time. No spread of the redness. Departure - Departure Time of Disposition: 01:40 Disposition: Refer to Observation Clinical Impression: Cellulitis of hand - Discharge Information Sepsis Event Note (ED) - Evaluation Sepsis Screening Result: No Definite Risk - Focused Exam Vital Signs: Vital Signs Temp Pulse Resp BP Pulse Ox 06/17/21 23:30 97.8 F 78 18 119/73 95 - My Orders Last 24 Hours: My Active Orders 06/17/21 23:57 Sodium Chloride 0.9% [Saline Flush] 10 ml FLUSH ASDIRECTED PRN Sodium Chloride 0.9% [Saline Flush] 2.5 ml FLUSH ASDIRECTED PRN Blood Culture x2 Reflex Set [OM.PC] Stat Saline Lock Insert [OM.PC] Stat 06/17/21 23:58 CULTURE BLOOD [BC] Stat CULTURE BLOOD [BC] Stat - Assessment/Plan Last 24 Hours: My Active Orders 06/17/21 23:57 Sodium Chloride 0.9% [Saline Flush] 10 ml FLUSH ASDIRECTED PRN Sodium Chloride 0.9% [Saline Flush] 2.5 ml FLUSH ASDIRECTED PRN Blood Culture x2 Reflex Set [OM.PC] Stat Saline Lock Insert [OM.PC] Stat 06/17/21 23:58 CULTURE BLOOD [BC] Stat CULTURE BLOOD [BC] Stat
[2021-06-18] MEDS ORDERED: DAPTOMYCIN IVPUSH SCH (02:00)
[2021-06-18] MEDS ORDERED: SODIUM CHLORIDE 0.9% IVPUSH SCH (02:00)
[2021-06-18] MEDS ORDERED: diphenhydrAMINE 50 MG/ML SDV IVPUSH ONE (02:26)
[2021-06-18] MEDS ORDERED: ClonazePAM 1 MG Tab PO SCH (04:00)
[2021-06-18] MEDS: HYDROmorphone 1 MG/ML Syringe IVPUSH PRN ×6 (04:30→21:49)
[2021-06-18 06:58] LABS: BLOOD UREA NITROGEN,BUN 5 mg/dL (7.0-18.0); CARBON DIOXIDE,CO2 27.5 mmol/L (21.0-32.0); CHLORIDE,CL 103 mmol/L (98-107); GLUCOSE RANDOM 82 mg/dL (74-106); POTASSIUM,K 3.9 mmol/L (3.5-5.1); SODIUM,NA 139 mmol/L (136-145)
[2021-06-18] MEDS: Ondansetron 4 MG/2 ML SDV IVPUSH PRN ×2 (08:41→18:33)
--- NOTE | 2021-06-18 08:42 | PCM.HP.2 ---
H&P History of Present Illness - General Date of Service: 06/18/21 Admit Problem/Dx: Admission Diagnosis/Problem Admission Diagnosis/Problem Cellulitis - History of Present Illness Initial Comments - Free Text/Narative: 30-year-old female presents to the ED with right ring finger and right hand redness, swelling, pain. Patient admitted for cellulitis. Past medical history to include hypertension, depression, anxiety. Patient believes she was bitten by an insect roughly 2 days ago although she did not see or feel any insect bite her. Patient's redness and swelling increased in the past 2 days at which time patient presented to a walk-in clinic prior to arrival in the ED where she received an injection of Rocephin. Patient states that she continued to have increased redness, swelling, difficulty with right hand movements post Rocephin administration. Patient also states that the redness and swelling began to move up the right hand into the right forearm. Patient denied fever, chills, nausea, vomiting, headaches. ER laboratory to include white blood cell count 9.93, BUN 5, creatinine 0.7 pat ient also had increased MCV of 103.6, hCG qualitative negative. Blood cultures pending. In the ED patient was originally started on vancomycin shortly after patient experienced right eye, right face swelling. Switched to Daptomycin Admission course to include daptomycin 600 mg every 24, Dilaudid 0.5 mg every 2 hours as needed for pain. Resume home medications. Right Hand Pain Score (Numeric/FACES): 8 - Related Data Allergies/Adverse Reactions: Allergies Allergy/AdvReac Type Severity Reaction Status Date / Time NSAIDS (Non-Steroidal Allergy Anaphylactic Verified 06/18/21 03:02 Anti-Inflamma Shock strawberry Allergy Swelling Verified 06/18/21 03:02 vancomycin Allergy Swollen Verified 06/18/21 03:02 Eyes Home Medications: Home Meds Desvenlafaxine Succinate [Pristiq ER] 200 mg PO DAILY 03/18/20 [History] clonazePAM [Clonazepam] 1 mg PO BID PRN 03/18/20 [History] traZODone HCl [Trazodone HCl] 50 mg PO ASDIRECTED 03/18/20 [History] Pantoprazole Sodium [Protonix] 20 mg PO DAILY 06/18/21 [History] Propranolol HCl [Propranolol HCl ER] 120 mg PO DAILY 06/18/21 [History] Past Medical History - Past Health History Medical/Surgical History: Denies Medical/Surgical History HEENT History: Reports: Cataract, Impaired Vision Cardiovascular History: Reports: Hypertension Respiratory History: Reports: None Gastrointestinal History: Reports: None Genitourinary History: Reports: Other (See Below) Other Genitourinary History: hydronephrosis RN SOCIAL WORK History: Reports: Hyperemesis, Musculoskeletal History: Reports: None Neurological History: Reports: Concussion, Migraines Psychiatric History: Reports: Anxiety, Depression, Panic Attack Endocrine/Metabolic History: Reports: Obesity/BMI 30+ 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 Car Hostler: None Hematologic History: Reports: Anemia Immunologic History: Reports: None Oncologic (Cancer) History: Reports: None Dermatologic History: Reports: None - Infectious Disease History Infectious Disease History: Reports: Chicken Pox - Past Surgical History Head Surgeries/Procedures: Reports: None HEENT Surgical History: Reports: Oral Surgery Female Surgical History: Reports: Other (See Below) Other Female Surgeries/Procedures: cyst removed laparoscopy Social & Family History - Family History HEENT: Reports: Cataract, Impaired Vision Cardiac: Reports: High Cholesterol, Hypertension Respiratory: Reports: Asthma GI: Reports: Cholelithiasis : Reports: None OBGYN: Reports: , Recurrent Spontaneous Neurological: Reports: CVA, Dementia, Migraines Psychiatric: Reports: Anxiety, Panic Attack Endocrine/Metabolic: Reports: None Hematologic: Reports: None Immunologic: Reports: None Dermatologic: Reports: None Oncologic: Reports: Lung - Tobacco Use Tobacco Use Status *Q: Current Every Day Tobacco User Years of Tobacco use: 15 Packs/Tins Daily: 0.2 Second Hand Smoke Exposure: Yes - Caffeine Use Caffeine Use: Reports: Coffee, Energy Drinks - Alcohol Use Days Per Week of Alcohol Use: 2 Number of Drinks Per Day: 3 Total Drinks Per Week: 6 - Recreational Drug Use Recreational Drug Use: No H&P Review of Systems - Review of Systems: Review Of Systems: See Below General: Denies: Fever, Chills Pulmonary: Denies: Shortness of Breath, Wheezing Cardiovascular: Denies: Chest Pain Gastrointestinal: Denies: Abdominal Pain, Nausea, Vomiting Musculoskeletal: Reports: Hand Pain Psychiatric: Denies: Confusion, Depression Neurological: Denies: Confusion, Dizziness, Headache Exam - Exam Exam: See Below - Vital Signs Vital Signs: Last Vital Signs Temp 97.3 F 06/18/21 03:00 Pulse 74 06/18/21 03:00 Resp 16 06/18/21 03:00 BP 110/68 06/18/21 03:00 Pulse Ox 95 06/18/21 03:00 Weight: 171 lb 9.6 oz - Exam General: Alert, Oriented Lungs: Clear to Auscultation, Normal Respiratory Effort Cardiovascular: Regular Rate, Regular Rhythm GI/Abdominal Exam: Soft, Non-Tender Extremities: No Pedal Edema, Limited Range of Motion (right hand, 2,3,4,5 fingers), Redness Skin: Other (Red lesion present on the right ring finer. Inflammation, redness, swelling present on right ring finger and right hand. ) Neuro Extensive - Mental Status: Alert, Oriented x3 - Patient Data Lab Results Last 24 hrs: Laboratory Results - last 24 hr 06/18/21 06/18/21 06/18/21 Range/Units 00:15 00:15 00:15 WBC 9.93 (4.0-11.0) K/uL RBC 4.13 L (4.30-5.90) M/uL Hgb 14.3 (12.0-16.0) g/dL Hct 42.0 (36.0-46.0) % MCV 101.7 H (80.0-98.0) fL MCH 34.6 H (27.0-32.0) pg MCHC 34.0 (31.0-37.0) g/dL RDW Std Deviation 48.6 (28.0-62.0) fl RDW Coeff of David 13 (11.0-15.0) % Plt Count 299 (150-400) K/uL MPV 11.10 (7.40-12.00) fL Neut % (Auto) 56.9 (48.0-80.0) % Lymph % (Auto) 29.3 (16.0-40.0) % Burnett % (Auto) 10.5 (0.0-15.0) % Eos % (Auto) 2.6 (0.0-7.0) % Baso % (Auto) 0.7 (0.0-1.5) % Neut # (Auto) 5.7 (1.4-5.7) K/uL Lymph # (Auto) 2.9 H (0.6-2.4) K/uL Burnett # (Auto) 1.0 H (0.0-0.8) K/uL Eos # (Auto) 0.3 (0.0-0.7) K/uL Baso # (Auto) 0.1 (0.0-0.1) K/uL Nucleated RBC % 0.0 /100WBC Nucleated RBCs # 0 K/uL Sodium 139 (136-145) mmol/L Potassium 3.7 (3.5-5.1) mmol/L Chloride 102 (98-107) mmol/L Carbon Dioxide 26.4 (21.0-32.0) mmol/L BUN 5 L (7.0-18.0) mg/dL Creatinine 0.7 (0.6-1.0) mg/dL Est Cr Clr Drug Dosing 99.63 mL/min Estimated GFR (MDRD) > 60.0 ml/min Glucose 88 (74-106) mg/dL Calcium 8.8 (8.5-10.1) mg/dL HCG, Qual NEGATIVE (NEG) SARS-CoV-2 RNA (NITIN) (NEGATIVE) 06/18/21 06/18/21 06/18/21 Range/Units 00:20 05:57 05:57 WBC 7.39 (4.0-11.0) K/uL RBC 3.84 L (4.30-5.90) M/uL Hgb 12.7 (12.0-16.0) g/dL Hct 39.8 (36.0-46.0) % MCV 103.6 H (80.0-98.0) fL MCH 33.1 H (27.0-32.0) pg MCHC 31.9 (31.0-37.0) g/dL RDW Std Deviation 49.4 (28.0-62.0) fl RDW Coeff of David 13 (11.0-15.0) % Plt Count 250 (150-400) K/uL MPV 10.70 (7.40-12.00) fL Neut % (Auto) 53.8 (48.0-80.0) % Lymph % (Auto) 31.9 (16.0-40.0) % Burnett % (Auto) 10.1 (0.0-15.0) % Eos % (Auto) 3.5 (0.0-7.0) % Baso % (Auto) 0.7 (0.0-1.5) % Neut # (Auto) 4.0 (1.4-5.7) K/uL Lymph # (Auto) 2.4 (0.6-2.4) K/uL Burnett # (Auto) 0.8 (0.0-0.8) K/uL Eos # (Auto) 0.3 (0.0-0.7) K/uL Baso # (Auto) 0.1 (0.0-0.1) K/uL Nucleated RBC % 0.0 /100WBC Nucleated RBCs # 0 K/uL Sodium 139 (136-145) mmol/L Potassium 3.9 (3.5-5.1) mmol/L Chloride 103 (98-107) mmol/L Carbon Dioxide 27.5 (21.0-32.0) mmol/L BUN 5 L (7.0-18.0) mg/dL Creatinine 0.7 (0.6-1.0) mg/dL Est Cr Clr Drug Dosing 95.44 mL/min Estimated GFR (MDRD) > 60.0 ml/min Glucose 82 (74-106) mg/dL Calcium 8.2 L (8.5-10.1) mg/dL HCG, Qual (NEG) SARS-CoV-2 RNA (NITIN) NEGATIVE (NEGATIVE) Result Diagrams: 06/18/21 05:57 06/18/21 05:57 Sepsis Event Note - Evaluation Sepsis Screening Result: No Definite Risk - Focused Exam Vital Signs: Vital Signs Temp Pulse Resp BP Pulse Ox 06/18/21 03:00 97.3 F 74 16 110/68 95 06/18/21 02:04 97.5 F 78 18 114/77 97 06/17/21 23:30 97.8 F 78 18 119/73 95 - Problem List (1) Hypertension SNOMED Code(s): 67035774 ICD Code: I10 - ESSENTIAL (PRIMARY) HYPERTENSION Status: Acute Current Visit: Yes (2) Cellulitis of hand SNOMED Code(s): 56635239 ICD Code: L03.119 - CELLULITIS OF UNSPECIFIED PART OF LIMB Status: Acute Current Visit: Yes (3) Depressive disorder SNOMED Code(s): 29298006 ICD Code: F32.9 - MAJOR DEPRESSIVE DISORDER, SINGLE EPISODE, UNSPECIFIED Status: Acute Current Visit: No Problem List Initiated/Reviewed/Updated: Yes Orders Last 24hrs: Active Orders 24 hr Category Date Time Status Patient Status [ADT] Routine ADT 06/18/21 01:49 Active Up ad Rhina [RC] ASDIRECTED Care 06/18/21 03:50 Active Regular Diet [DIET] Diet 06/18/21 Breakfast Active CULTURE BLOOD [BC] Stat Lab 06/17/21 23:58 Received CULTURE BLOOD [BC] Stat Lab 06/17/21 23:58 Received ClonazePAM [KlonoPIN] Med 06/18/21 09:00 Active 1 mg PO BID PRN DAPTOmycin [Cubicin] 600 mg Med 06/19/21 09:00 Active Sodium Chloride 0.9% [Normal Saline] 12 ml IVPUSH DAILY HYDROmorphone [Dilaudid] Med 06/18/21 03:53 Active 0.5 mg IVPUSH Q2H PRN Ondansetron [Zofran] Med 06/18/21 08:20 Active 4 mg IVPUSH Q6H PRN Sodium Chloride 0.9% [Saline Flush] Med 06/17/21 23:57 Active 10 ml FLUSH ASDIRECTED PRN Sodium Chloride 0.9% [Saline Flush] Med 06/17/21 23:57 Active 2.5 ml FLUSH ASDIRECTED PRN Blood Culture x2 Reflex Set [OM.PC] Stat Oth 06/17/21 23:57 Ordered Saline Lock Insert [OM.PC] Stat Oth 06/17/21 23:57 Ordered Medication Orders Clonazepam (Clonazepam 1 Mg Tab) 1 mg PO BID PRN PRN Reason: ANXIETY Hydromorphone HCl (Hydromorphone 1 Mg/Ml Syringe) 0.5 mg IVPUSH Q2H PRN PRN Reason: Pain Last Admin: 06/18/21 04:30 Dose: 0.5 mg Documented by: ALEK Daptomycin 600 mg/ Sodium (Chloride) 12 mls @ 180 mls/hr IVPUSH DAILY VERNON Ondansetron HCl (Ondansetron 4 Mg/2 Ml Sdv) 4 mg IVPUSH Q6H PRN PRN Reason: Nausea/Vomiting Sodium Chloride (Sodium Chloride 0.9% 10 Ml Syringe) 10 ml FLUSH ASDIRECTED PRN PRN Reason: Keep Vein Open Sodium Chloride (Sodium Chloride 0.9% 2.5 Ml Syringe) 2.5 ml FLUSH ASDIRECTED PRN PRN Reason: Keep Vein Open Assessment/Plan Comment:: Right ring finger cellulitis-daptomycin 600 mg every 24 hours, 0.5 mg Dilaudid every 2 hours as needed for pain. Right hand x-ray ordered to rule out possible foreign bodies. Resume home medications to include clonazepam 1 mg as needed, propranolol, desvenlafaxine, trazodone. Will start vitamin B12 and folic acid due to increased MCV value, regular diet, Lovenox for DVT prophylaxis.
[2021-06-18] MEDS ORDERED: diphenhydrAMINE 50 MG Cap PO ONE ×2 (09:15→11:45)
[2021-06-18] MEDS: DESVENLAFAXINE SUCCINATE 100 MG PO SCH (13:29)
[2021-06-18] MEDS: Propranolol 60 MG Cap.ER PO SCH (14:06)
[2021-06-18] MEDS: Enoxaparin 40 MG/0.4 ML Syringe SUBCUT SCH (18:32)
[2021-06-18] MEDS: traZODone 50 MG Tab PO SCH (20:00)
[2021-06-18] MEDS: Folic Acid 1 MG Tab PO SCH (20:00)
--- NOTE | 2021-06-18 22:44 | CR ---
INDICATION: Pain, swelling, right ring finger. TECHNIQUE: X-ray right hand, 2 views. COMPARISON: None available. FINDINGS: The alignment is normal. Negative for acute fracture or dislocation. The overlying soft tissues within normal limits. No radiopaque foreign body is seen. IMPRESSION: Negative for acute fracture or dislocation. Dictated by Cindy Sharp MD @ 06/18/2021 10:42:[address] Cindy Sharp @ Jun 18 2021 10:42PM
[2021-06-19] MEDS: HYDROmorphone 1 MG/ML Syringe IVPUSH PRN ×3 (01:17→09:14)
[2021-06-19] MEDS: Pantoprazole 40 MG Tab.CR PO SCH (06:31)
[2021-06-19] MEDS: Ondansetron 4 MG/2 ML SDV IVPUSH PRN (06:31)
[2021-06-19 06:58] LABS: BLOOD UREA NITROGEN,BUN 8 mg/dL (7.0-18.0); CARBON DIOXIDE,CO2 30.7 mmol/L (21.0-32.0); CHLORIDE,CL 103 mmol/L (98-107); GLUCOSE RANDOM 95 mg/dL (74-106); POTASSIUM,K 3.9 mmol/L (3.5-5.1); SODIUM,NA 139 mmol/L (136-145)
[2021-06-19] MEDS: DAPTOmycin 600 MG in Sodium Chloride 0.9% 12 ML IVPUSH SCH (09:29)
[2021-06-19] MEDS: Cyanocobalamin (Vitamin B12) 500 MCG Tab PO SCH (09:30)
[2021-06-19] MEDS: Propranolol 60 MG Cap.ER PO SCH (09:30)
[2021-06-19] MEDS: DESVENLAFAXINE SUCCINATE 100 MG PO SCH (09:31)
--- NOTE | 2021-06-19 13:00 | PCM.PN ---
- General Info Date of Service: 06/19/21 Admission Dx/Problem (Free Text): Admission Diagnosis/Problem Admission Diagnosis/Problem Cellulitis Subjective Update: 30-year-old female admitted for right ring finger cellulitis currently on daptomycin 600 mg. Swelling and erythema have improved. Patient continues to have pain in her right ring finger. Erythema is located only over the finger. Overnight patient states she did not sleep well but her hand is improving. She denies fever or chills. She denies joint pain. She does endorse difficulty with range of motion of her right ring finger. - Review of Systems General: Denies: Fever, Chills HEENT: Reports: No Symptoms Pulmonary: Reports: No Symptoms Cardiovascular: Reports: No Symptoms Gastrointestinal: Reports: No Symptoms Genitourinary: Reports: No Symptoms Musculoskeletal: Reports: Other (Right ring finger: Lesion located on dorsal aspect. Decreasing erythema and swelling.) Neurological: Reports: No Symptoms - Patient Data Vitals - Most Recent: Last Vital Signs Temp 97.0 F 06/19/21 10:10 Pulse 79 06/19/21 10:10 Resp 18 06/19/21 10:10 BP 129/66 06/19/21 10:10 Pulse Ox 97 06/19/21 10:10 Weight - Most Recent: 171 lb 9.6 oz I&O - Last 24 Hours: Intake & Output 06/18/21 06/19/21 06/19/21 22:59 06:59 14:59 Intake Total 1210 1460 Output Total 550 1900 Balance 660 -440 Lab Results Last 24 Hours: Laboratory Results - last 24 hr 06/19/21 06/19/21 Range/Units 06:03 06:03 WBC 5.96 (4.0-11.0) K/uL RBC 3.91 L (4.30-5.90) M/uL Hgb 13.2 (12.0-16.0) g/dL Hct 41.0 (36.0-46.0) % MCV 104.9 H (80.0-98.0) fL MCH 33.8 H (27.0-32.0) pg MCHC 32.2 (31.0-37.0) g/dL RDW Std Deviation 50.0 (28.0-62.0) fl RDW Coeff of David 13 (11.0-15.0) % Plt Count 237 (150-400) K/uL MPV 10.80 (7.40-12.00) fL Neut % (Auto) 52.6 (48.0-80.0) % Lymph % (Auto) 31.0 (16.0-40.0) % Patrick % (Auto) 12.2 (0.0-15.0) % Eos % (Auto) 3.5 (0.0-7.0) % Baso % (Auto) 0.7 (0.0-1.5) % Neut # (Auto) 3.1 (1.4-5.7) K/uL Lymph # (Auto) 1.9 (0.6-2.4) K/uL Patrick # (Auto) 0.7 (0.0-0.8) K/uL Eos # (Auto) 0.2 (0.0-0.7) K/uL Baso # (Auto) 0.0 (0.0-0.1) K/uL Nucleated RBC % 0.0 /100WBC Nucleated RBCs # 0 K/uL Sodium 139 (136-145) mmol/L Potassium 3.9 (3.5-5.1) mmol/L Chloride 103 (98-107) mmol/L Carbon Dioxide 30.7 (21.0-32.0) mmol/L BUN 8 (7.0-18.0) mg/dL Creatinine 0.8 (0.6-1.0) mg/dL Est Cr Clr Drug Dosing 83.51 mL/min Estimated GFR (MDRD) > 60.0 ml/min Glucose 95 (74-106) mg/dL Calcium 8.4 L (8.5-10.1) mg/dL Benedict Results Last 24 Hours: Microbiology 06/18/21 00:35 Aerobic Blood Culture - Preliminary Blood - Venous - Lab Draw NO GROWTH AFTER 1 DAY Anaerobic Blood Culture - Preliminary NO GROWTH AFTER 1 DAY 06/18/21 00:15 Aerobic Blood Culture - Preliminary Blood - Venous NO GROWTH AFTER 1 DAY Anaerobic Blood Culture - Preliminary NO GROWTH AFTER 1 DAY Med Orders - Current: Current Medications Clonazepam (Clonazepam 1 Mg Tab) 1 mg PO BID PRN PRN Reason: ANXIETY Cyanocobalamin (Cyanocobalamin (Vitamin B12) 500 Mcg Tab) 500 mcg PO DAILY VERNON Last Admin: 06/19/21 09:30 Dose: 500 mcg Documented by: Enoxaparin Sodium (Enoxaparin 40 Mg/0.4 Ml Syringe) 40 mg SUBCUT Q24H COUNT INCLUDES THE [facility] Last Admin: 06/18/21 18:32 Dose: 40 mg Documented by: Folic Acid (Folic Acid 1 Mg Tab) 1 mg PO BEDTIME COUNT INCLUDES THE [facility] Last Admin: 06/18/21 20:00 Dose: 1 mg Documented by: Daptomycin 600 mg/ Sodium (Chloride) 12 mls @ 180 mls/hr IVPUSH DAILY COUNT INCLUDES THE [facility] Last Admin: 06/19/21 09:29 Dose: 180 mls/hr Documented by: Ondansetron HCl (Ondansetron 4 Mg/2 Ml Sdv) 4 mg IVPUSH Q6H PRN PRN Reason: Nausea/Vomiting Last Admin: 06/19/21 06:31 Dose: 4 mg Documented by: Oxycodone/Acetaminophen (Acetaminophen/Oxycodone 325-5 Mg Tab) 1 tab PO Q4H PRN PRN Reason: Pain (severe 7-10) Pantoprazole Sodium (Pantoprazole 40 Mg Tab.Cr) 40 mg PO ACBREAKFAST COUNT INCLUDES THE [facility] Last Admin: 06/19/21 06:31 Dose: 40 mg Documented by: Desvenlafaxine Succinate [Pristiq] 100 Mg Tab.Er.24h 2 each PO DAILY COUNT INCLUDES THE [facility] Last Admin: 06/19/21 09:31 Dose: 2 each Documented by: Propranolol HCl (Propranolol 60 Mg Cap.Er) 120 mg PO DAILY COUNT INCLUDES THE [facility] Last Admin: 06/19/21 09:30 Dose: 120 mg Documented by: Sodium Chloride (Sodium Chloride 0.9% 10 Ml Syringe) 10 ml FLUSH ASDIRECTED PRN PRN Reason: Keep Vein Open Sodium Chloride (Sodium Chloride 0.9% 2.5 Ml Syringe) 2.5 ml FLUSH ASDIRECTED PRN PRN Reason: Keep Vein Open Trazodone HCl (Trazodone 50 Mg Tab) 50 mg PO BEDTIME COUNT INCLUDES THE [facility] Last Admin: 06/18/21 20:00 Dose: 50 mg Documented by: Discontinued Medications Clonazepam (Clonazepam 1 Mg Tab) 1 mg PO ASDIRECTED COUNT INCLUDES THE [facility] Diphenhydramine HCl (Diphenhydramine 50 Mg/Ml Sdv) 25 mg IVPUSH ONETIME ONE Stop: 06/18/21 02:27 Last Admin: 06/18/21 02:30 Dose: 25 mg Documented by: Diphenhydramine HCl (Diphenhydramine 50 Mg Cap) 50 mg PO ONETIME ONE Stop: 06/18/21 09:16 Last Admin: 06/18/21 11:50 Dose: 50 mg Documented by: Diphenhydramine HCl (Diphenhydramine 50 Mg Cap) 50 mg PO ONETIME ONE Stop: 06/18/21 11:46 Last Admin: 06/18/21 12:30 Dose: 50 mg Documented by: Hydromorphone HCl (Hydromorphone 2 Mg/Ml Syringe) 0.5 mg IVPUSH ONETIME ONE Stop: 06/18/21 01:49 Last Admin: 06/18/21 02:01 Dose: 0.5 mg Documented by: Hydromorphone HCl (Hydromorphone 1 Mg/Ml Syringe) 0.5 mg IVPUSH Q2H PRN PRN Reason: Pain Last Admin: 06/19/21 09:14 Dose: 0.5 mg Documented by: Ceftriaxone Sodium/Dextrose 1 (gm/ Premix) 50 mls @ 100 mls/hr IV ONETIME ONE Stop: 06/18/21 00:37 Last Admin: 06/18/21 00:34 Dose: 100 mls/hr Documented by: Vancomycin HCl 1,500 mg/ (Sodium Chloride) 100 mls @ 100 mls/hr IV ONETIME ONE Stop: 06/18/21 01:07 Last Admin: 06/18/21 00:52 Dose: Not Given Documented by: Vancomycin HCl 1.5 gm/ Premix 300 mls @ 200 mls/hr IV ONETIME ONE Stop: 06/18/21 02:11 Vancomycin HCl 1.5 gm/ Premix 300 mls @ 200 mls/hr IV ONETIME ONE; Protocol Stop: 06/18/21 02:29 Last Admin: 06/18/21 01:21 Dose: 200 mls/hr Documented by: Daptomycin 600 mg/ Sodium (Chloride) 20 mls @ 300 mls/hr IVPUSH DAILY VERNON Last Admin: 06/18/21 03:30 Dose: 300 mls/hr Documented by: Lorazepam (Lorazepam 2 Mg/Ml Sdv) 1 mg IVPUSH ONETIME ONE Stop: 06/18/21 00:09 Last Admin: 06/18/21 00:34 Dose: 1 mg Documented by: Morphine Sulfate (Morphine 4 Mg/Ml Syringe) 4 mg IVPUSH ONETIME ONE Stop: 06/18/21 00:09 Last Admin: 06/18/21 00:34 Dose: 4 mg Documented by: Ondansetron HCl (Ondansetron 4 Mg/2 Ml Sdv) 4 mg IVPUSH ONETIME ONE Stop: 06/18/21 00:36 Last Admin: 06/18/21 00:39 Dose: 4 mg Documented by: - Exam General: Alert, Oriented, Cooperative, No Acute Distress Neck: Supple Lungs: Clear to Auscultation, Normal Respiratory Effort Cardiovascular: Regular Rate, Regular Rhythm, No Murmurs GI/Abdominal Exam: Normal Bowel Sounds, Soft, Non-Tender, No Distention Extremities: Other (Dorsal aspect of right ring finger has an erythematous lesion with mild clear drainage. No swelling compared to left. No erythema extending beyond the ring finger.) Peripheral Pulses: 2+: Radial (L), Radial (R) Wound/Incisions: Healing Well, Erythema Improving Neurological: No New Focal Deficit - Patient Data Lab Results Last 24 hrs: Laboratory Results - last 24 hr 06/19/21 06/19/21 Range/Units 06:03 06:03 WBC 5.96 (4.0-11.0) K/uL RBC 3.91 L (4.30-5.90) M/uL Hgb 13.2 (12.0-16.0) g/dL Hct 41.0 (36.0-46.0) % MCV 104.9 H (80.0-98.0) fL MCH 33.8 H (27.0-32.0) pg MCHC 32.2 (31.0-37.0) g/dL RDW Std Deviation 50.0 (28.0-62.0) fl RDW Coeff of David 13 (11.0-15.0) % Plt Count 237 (150-400) K/uL MPV 10.80 (7.40-12.00) fL Neut % (Auto) 52.6 (48.0-80.0) % Lymph % (Auto) 31.0 (16.0-40.0) % Patrick % (Auto) 12.2 (0.0-15.0) % Eos % (Auto) 3.5 (0.0-7.0) % Baso % (Auto) 0.7 (0.0-1.5) % Neut # (Auto) 3.1 (1.4-5.7) K/uL Lymph # (Auto) 1.9 (0.6-2.4) K/uL Patrick # (Auto) 0.7 (0.0-0.8) K/uL Eos # (Auto) 0.2 (0.0-0.7) K/uL Baso # (Auto) 0.0 (0.0-0.1) K/uL Nucleated RBC % 0.0 /100WBC Nucleated RBCs # 0 K/uL Sodium 139 (136-145) mmol/L Potassium 3.9 (3.5-5.1) mmol/L Chloride 103 (98-107) mmol/L Carbon Dioxide 30.7 (21.0-32.0) mmol/L BUN 8 (7.0-18.0) mg/dL Creatinine 0.8 (0.6-1.0) mg/dL Est Cr Clr Drug Dosing 83.51 mL/min Estimated GFR (MDRD) > 60.0 ml/min Glucose 95 (74-106) mg/dL Calcium 8.4 L (8.5-10.1) mg/dL Result Diagrams: 06/19/21 06:03 06/19/21 06:03 Benedict Results Last 24 hrs: Microbiology 06/18/21 00:35 Aerobic Blood Culture - Preliminary Blood - Venous - Lab Draw NO GROWTH AFTER 1 DAY Anaerobic Blood Culture - Preliminary NO GROWTH AFTER 1 DAY 06/18/21 00:15 Aerobic Blood Culture - Preliminary Blood - Venous NO GROWTH AFTER 1 DAY Anaerobic Blood Culture - Preliminary NO GROWTH AFTER 1 DAY Sepsis Event Note - Evaluation Sepsis Screening Result: No Definite Risk - Focused Exam Vital Signs: Vital Signs Temp Pulse Resp BP Pulse Ox 06/19/21 10:10 97.0 F 79 18 129/66 97 06/19/21 06:25 97.0 F 87 16 116/68 98 06/19/21 01:15 97.1 F 71 16 100/74 95 - Problem List Review Problem List Initiated/Reviewed/Updated: Yes - My Orders Last 24 Hours: My Active Orders 06/19/21 12:08 Acetaminophen/oxyCODONE [Percocet 325-5 MG] 1 tab PO Q4H PRN - Plan Plan:: 30-year-old female admitted for right ring finger cellulitis currently on day 2 of daptomycin 600 mg daily. Continue patient on IV antibiotics. Consider discharge tomorrow on doxycycline. Wean pain control. We will discontinue Dilaudid and start the patient on Percocet every 4 hours as needed. Patient was noted to have a low folic acid and was educated on importance of taking folic acid in all females of reproductive age. DVT prophylaxis with Lovenox. Continue home medications.
[2021-06-19] MEDS: Acetaminophen/oxyCODONE 325-5 MG Tab PO PRN ×3 (13:31→21:32)
[2021-06-19] MEDS: ClonazePAM 1 MG Tab PO PRN (17:46)
[2021-06-19] MEDS: Enoxaparin 40 MG/0.4 ML Syringe SUBCUT SCH (17:47)
[2021-06-19] MEDS: traZODone 50 MG Tab PO SCH (20:51)
[2021-06-19] MEDS: Folic Acid 1 MG Tab PO SCH (20:52)
[2021-06-20] MEDS: Acetaminophen/oxyCODONE 325-5 MG Tab PO PRN ×3 (01:45→09:45)
[2021-06-20] MEDS: Ondansetron 4 MG/2 ML SDV IVPUSH PRN (05:54)
[2021-06-20] MEDS: Pantoprazole 40 MG Tab.CR PO SCH (07:48)
[2021-06-20 09:08] LABS: BLOOD UREA NITROGEN,BUN 6 mg/dL (7.0-18.0); CARBON DIOXIDE,CO2 31.1 mmol/L (21.0-32.0); CHLORIDE,CL 103 mmol/L (98-107); GLUCOSE RANDOM 92 mg/dL (74-106); POTASSIUM,K 3.8 mmol/L (3.5-5.1); SODIUM,NA 139 mmol/L (136-145)
[2021-06-20] MEDS: Cyanocobalamin (Vitamin B12) 500 MCG Tab PO SCH (09:18)
[2021-06-20] MEDS: Propranolol 60 MG Cap.ER PO SCH (09:18)
[2021-06-20] MEDS: ClonazePAM 1 MG Tab PO PRN (09:18)
[2021-06-20] MEDS: DESVENLAFAXINE SUCCINATE 100 MG PO SCH (09:19)
[2021-06-20] MEDS: DAPTOmycin 600 MG in Sodium Chloride 0.9% 12 ML IVPUSH SCH (09:46)
[2021-06-20 10:22] VITALS: BP 108/70
[2021-06-20 12:10] VITALS: PULSE 77
--- NOTE | 2021-06-20 12:11 | PCM.DCSUM1 ---
<Jose Martin Cavazos - Last Filed: 06/20/21 12:16> Discharge Summary - Hospital Course Free Text/Narrative:: 30-year-old female presented to the ED on 06/18/2021 with right ring finger erythema, swelling, and pain. Patient was admitted for cellulitis. Patient's past medical history includes hypertension, depression, anxiety. Patient stated she may have been bitten by an insect 2 days prior to presenting to the ER. Erythema slowly increased over the next 2 days. She was seen at the [facility] and received Rocephin injection. Later that night she had increased erythema, swelling and difficulty moving her finger. She presented to the ER. Patient was admitted for cellulitis and started on daptomycin 600 mg daily. pain was controlled with 0.5 mg Dilaudid every 2 hours. She was weaned down to p.o. Percocet every 4 hours. Patient's WBC on admission was 9.9. It down trended to 5.0. On admission patient was also found to have an elevated MCV. Vitamin B12 level was 376. Folate level was 5.6. Patient received vitamin B12 and folic acid supplementation and needs to continue this p.o. outpatient. Patient's infection improved, erythema and swelling decreased. Patient is being discharged on doxycycline for 4 days and 6 tabs of Percocet. Patient instructed to seek medical attention if she has increasing pain, fevers, erythema or joint pains. - Discharge Data Discharge Date: 06/20/21 Discharge Disposition: Home, Self-Care 01 Condition: Stable - Referral to Home Health Primary Care Physician: PCP None - Patient Instructions Diet: Usual Diet as Tolerated Activity: Elevate Extremity Activity, Other: Advance activity as tolerated Notify Provider of: Fever, Swelling and Redness - Discharge Plan *PRESCRIPTION DRUG MONITORING PROGRAM REVIEWED*: No *COPY OF PRESCRIPTION DRUG MONITORING REPORT IN PATIENT JAMES: No Prescriptions/Med Rec: Folic Acid 1 mg PO BEDTIME 14 Days #14 tablet Acetaminophen/oxyCODONE [Percocet 325-5 MG] 1 tab PO Q8HR PRN #5 tablet PRN Reason: Pain (Severe 7-10) Doxycycline [Vibra-Tabs] 100 mg PO Q12HR 4 Days #8 tab Cyanocobalamin (Vitamin B12) [Vitamin B12] 500 mcg PO DAILY 14 Days #14 tablet Home Medications: Home Meds Desvenlafaxine Succinate [Pristiq] 200 mg PO DAILY 03/18/20 [History] clonazePAM [Clonazepam] 1 mg PO BID PRN 03/18/20 [History] traZODone HCl [Trazodone HCl] 50 mg PO ASDIRECTED 03/18/20 [History] Pantoprazole Sodium [Protonix] 20 mg PO DAILY 06/18/21 [History] Propranolol HCl [Propranolol HCl ER] 120 mg PO DAILY 06/18/21 [History] Acetaminophen/oxyCODONE [Percocet 325-5 MG] 1 tab PO Q8HR PRN #5 tablet 06/20/21 [Rx] Cyanocobalamin (Vitamin B12) [Vitamin B12] 500 mcg PO DAILY 14 Days #14 tablet 06/20/21 [Rx] Doxycycline [Vibra-Tabs] 100 mg PO Q12HR 4 Days #8 tab 06/20/21 [Rx] Folic Acid 1 mg PO BEDTIME 14 Days #14 tablet 06/20/21 [Rx] Patient Handouts: Acetaminophen; Oxycodone tablets, Oxycodone tablets or capsules, Vitamin B12 oral, Doxycycline tablets or capsules, Cellulitis, Adult, [id number], Cyanocobalamin, Pyridoxine, and Folate, Folic Acid, Vitamin B9 tablets Referrals: Ermelinda Durán NP [Ordering Only Provider] - 07/01/21 9:45 am - Discharge Summary/Plan Comment DC Time >30 min.: Yes - General Info Admission Dx/Problem (Free Text: Admission Diagnosis/Problem Admission Diagnosis/Problem Cellulitis - Review of Systems General: Denies: Fever, Chills HEENT: Reports: No Symptoms Pulmonary: Reports: No Symptoms Cardiovascular: Reports: No Symptoms Gastrointestinal: Reports: No Symptoms Genitourinary: Reports: No Symptoms Musculoskeletal: Reports: Other (Finger pain) Neurological: Reports: No Symptoms - Patient Data Vitals - Most Recent: Last Vital Signs Temp 96.2 F L 06/20/21 12:00 Pulse 77 06/20/21 12:00 Resp 16 06/20/21 12:00 BP 108/70 06/20/21 12:00 Pulse Ox 96 06/20/21 12:00 Weight - Most Recent: 77.836 kg I&O - Last 24 hours: Intake & Output 06/19/21 06/20/21 06/20/21 22:59 06:59 14:59 Intake Total 1220 1090 Output Total 650 1300 Balance 570 -210 Lab Results - Last 24 hrs: Laboratory Results - last 24 hr 06/20/21 06/20/21 Range/Units 07:54 07:54 WBC 5.00 (4.0-11.0) K/uL RBC 3.92 L (4.30-5.90) M/uL Hgb 13.3 (12.0-16.0) g/dL Hct 41.1 (36.0-46.0) % MCV 104.8 H (80.0-98.0) fL MCH 33.9 H (27.0-32.0) pg MCHC 32.4 (31.0-37.0) g/dL RDW Std Deviation 50.2 (28.0-62.0) fl RDW Coeff of David 13 (11.0-15.0) % Plt Count 231 (150-400) K/uL MPV 10.80 (7.40-12.00) fL Neut % (Auto) 46.4 L (48.0-80.0) % Lymph % (Auto) 34.6 (16.0-40.0) % Waller % (Auto) 14.6 (0.0-15.0) % Eos % (Auto) 4.0 (0.0-7.0) % Baso % (Auto) 0.4 (0.0-1.5) % Neut # (Auto) 2.3 (1.4-5.7) K/uL Lymph # (Auto) 1.7 (0.6-2.4) K/uL Waller # (Auto) 0.7 (0.0-0.8) K/uL Eos # (Auto) 0.2 (0.0-0.7) K/uL Baso # (Auto) 0.0 (0.0-0.1) K/uL Nucleated RBC % 0.0 /100WBC Nucleated RBCs # 0 K/uL Sodium 139 (136-145) mmol/L Potassium 3.8 (3.5-5.1) mmol/L Chloride 103 (98-107) mmol/L Carbon Dioxide 31.1 (21.0-32.0) mmol/L BUN 6 L (7.0-18.0) mg/dL Creatinine 0.8 (0.6-1.0) mg/dL Est Cr Clr Drug Dosing 83.51 mL/min Estimated GFR (MDRD) > 60.0 ml/min Glucose 92 (74-106) mg/dL Calcium 8.6 (8.5-10.1) mg/dL MJ Results - Last 24 hrs: Microbiology 06/18/21 00:35 Aerobic Blood Culture - Preliminary Blood - Venous - Lab Draw NO GROWTH AFTER 2 DAYS Anaerobic Blood Culture - Preliminary NO GROWTH AFTER 2 DAYS 06/18/21 00:15 Aerobic Blood Culture - Preliminary Blood - Venous NO GROWTH AFTER 2 DAYS Anaerobic Blood Culture - Preliminary NO GROWTH AFTER 2 DAYS Med Orders - Current: Current Medications Clonazepam (Clonazepam 1 Mg Tab) 1 mg PO BID PRN PRN Reason: ANXIETY Last Admin: 06/20/21 09:18 Dose: 1 mg Documented by: Cyanocobalamin (Cyanocobalamin (Vitamin B12) 500 Mcg Tab) 500 mcg PO DAILY [facility] Last Admin: 06/20/21 09:18 Dose: 500 mcg Documented by: Enoxaparin Sodium (Enoxaparin 40 Mg/0.4 Ml Syringe) 40 mg SUBCUT Q24H [facility] Last Admin: 06/19/21 17:47 Dose: 40 mg Documented by: Folic Acid (Folic Acid 1 Mg Tab) 1 mg PO BEDTIME [facility] Last Admin: 06/19/21 20:52 Dose: 1 mg Documented by: Daptomycin 600 mg/ Sodium (Chloride) 12 mls @ 180 mls/hr IVPUSH DAILY [facility] Last Admin: 06/20/21 09:46 Dose: 180 mls/hr Documented by: Ondansetron HCl (Ondansetron 4 Mg/2 Ml Sdv) 4 mg IVPUSH Q6H PRN PRN Reason: Nausea/Vomiting Last Admin: 06/20/21 05:54 Dose: 4 mg Documented by: Oxycodone/Acetaminophen (Acetaminophen/Oxycodone 325-5 Mg Tab) 1 tab PO Q4H PRN PRN Reason: Pain (severe 7-10) Last Admin: 06/20/21 09:45 Dose: 1 tab Documented by: Pantoprazole Sodium (Pantoprazole 40 Mg Tab.Cr) 40 mg PO ACBREAKFAST [facility] Last Admin: 06/20/21 07:48 Dose: 40 mg Documented by: Desvenlafaxine Succinate [Pristiq] 100 Mg Tab.Er.24h 2 each PO DAILY [facility] Last Admin: 06/20/21 09:19 Dose: 2 each Documented by: Propranolol HCl (Propranolol 60 Mg Cap.Er) 120 mg PO DAILY [facility] Last Admin: 06/20/21 09:18 Dose: 120 mg Documented by: Sodium Chloride (Sodium Chloride 0.9% 10 Ml Syringe) 10 ml FLUSH ASDIRECTED PRN PRN Reason: Keep Vein Open Last Admin: 06/19/21 20:51 Dose: 10 ml Documented by: Sodium Chloride (Sodium Chloride 0.9% 2.5 Ml Syringe) 2.5 ml FLUSH ASDIRECTED PRN PRN Reason: Keep Vein Open Trazodone HCl (Trazodone 50 Mg Tab) 50 mg PO BEDTIME [facility] Last Admin: 06/19/21 20:51 Dose: 50 mg Documented by: Discontinued Medications Clonazepam (Clonazepam 1 Mg Tab) 1 mg PO ASDIRECTED [facility] Diphenhydramine HCl (Diphenhydramine 50 Mg/Ml Sdv) 25 mg IVPUSH ONETIME ONE Stop: 06/18/21 02:27 Last Admin: 06/18/21 02:30 Dose: 25 mg Documented by: Diphenhydramine HCl (Diphenhydramine 50 Mg Cap) 50 mg PO ONETIME ONE Stop: 06/18/21 09:16 Last Admin: 06/18/21 11:50 Dose: 50 mg Documented by: Diphenhydramine HCl (Diphenhydramine 50 Mg Cap) 50 mg PO ONETIME ONE Stop: 06/18/21 11:46 Last Admin: 06/18/21 12:30 Dose: 50 mg Documented by: Hydromorphone HCl (Hydromorphone 2 Mg/Ml Syringe) 0.5 mg IVPUSH ONETIME ONE Stop: 06/18/21 01:49 Last Admin: 06/18/21 02:01 Dose: 0.5 mg Documented by: Hydromorphone HCl (Hydromorphone 1 Mg/Ml Syringe) 0.5 mg IVPUSH Q2H PRN PRN Reason: Pain Last Admin: 06/19/21 09:14 Dose: 0.5 mg Documented by: Ceftriaxone Sodium/Dextrose 1 (gm/ Premix) 50 mls @ 100 mls/hr IV ONETIME ONE Stop: 06/18/21 00:37 Last Admin: 06/18/21 00:34 Dose: 100 mls/hr Documented by: Vancomycin HCl 1,500 mg/ (Sodium Chloride) 100 mls @ 100 mls/hr IV ONETIME ONE Stop: 06/18/21 01:07 Last Admin: 06/18/21 00:52 Dose: Not Given Documented by: Vancomycin HCl 1.5 gm/ Premix 300 mls @ 200 mls/hr IV ONETIME ONE Stop: 06/18/21 02:11 Vancomycin HCl 1.5 gm/ Premix 300 mls @ 200 mls/hr IV ONETIME ONE; Protocol Stop: 06/18/21 02:29 Last Admin: 06/18/21 01:21 Dose: 200 mls/hr Documented by: Daptomycin 600 mg/ Sodium (Chloride) 20 mls @ 300 mls/hr IVPUSH DAILY [facility] Last Admin: 06/18/21 03:30 Dose: 300 mls/hr Documented by: Lorazepam (Lorazepam 2 Mg/Ml Sdv) 1 mg IVPUSH ONETIME ONE Stop: 06/18/21 00:09 Last Admin: 06/18/21 00:34 Dose: 1 mg Documented by: Morphine Sulfate (Morphine 4 Mg/Ml Syringe) 4 mg IVPUSH ONETIME ONE Stop: 06/18/21 00:09 Last Admin: 06/18/21 00:34 Dose: 4 mg Documented by: Ondansetron HCl (Ondansetron 4 Mg/2 Ml Sdv) 4 mg IVPUSH ONETIME ONE Stop: 06/18/21 00:36 Last Admin: 06/18/21 00:39 Dose: 4 mg Documented by: - Exam General: Reports: Alert, Oriented, Cooperative, No Acute Distress Neck: Reports: Supple Lungs: Reports: Clear to Auscultation Cardiovascular: Reports: Regular Rate, Regular Rhythm GI/Abdominal Exam: Normal Bowel Sounds, Soft, Non-Tender Extremities: Other (Right ring finger: No swelling. No erythema. Ulcerated lesion still present over the dorsal aspect. Range of motion intact.) Wound/Incisions: Reports: Healing Well Neurological: Reports: No New Focal Deficit <Luis Bloom - Last Filed: 06/21/21 19:33> Discharge Summary - Referral to Home Health Primary Care Physician: PCP None - Patient Data Vitals - Most Recent: Last Vital Signs Temp 35.7 C L 06/20/21 12:00 Pulse 77 06/20/21 12:00 Resp 16 06/20/21 12:00 BP 108/70 06/20/21 12:00 Pulse Ox 96 06/20/21 12:00 MJ Results - Last 24 hrs: Microbiology 06/18/21 00:35 Aerobic Blood Culture - Preliminary Blood - Venous - Lab Draw NO GROWTH AFTER 3 DAYS Anaerobic Blood Culture - Preliminary NO GROWTH AFTER 3 DAYS 06/18/21 00:15 Aerobic Blood Culture - Preliminary Blood - Venous NO GROWTH AFTER 3 DAYS Anaerobic Blood Culture - Preliminary NO GROWTH AFTER 3 DAYS Med Orders - Current: Current Medications Discontinued Medications Clonazepam (Clonazepam 1 Mg Tab) 1 mg PO ASDIRECTED [facility] Clonazepam (Clonazepam 1 Mg Tab) 1 mg PO BID PRN PRN Reason: ANXIETY Last Admin: 06/20/21 09:18 Dose: 1 mg Documented by: Cyanocobalamin (Cyanocobalamin (Vitamin B12) 500 Mcg Tab) 500 mcg PO DAILY [facility] Last Admin: 06/20/21 09:18 Dose: 500 mcg Documented by: Diphenhydramine HCl (Diphenhydramine 50 Mg/Ml Sdv) 25 mg IVPUSH ONETIME ONE Stop: 06/18/21 02:27 Last Admin: 06/18/21 02:30 Dose: 25 mg Documented by: Diphenhydramine HCl (Diphenhydramine 50 Mg Cap) 50 mg PO ONETIME ONE Stop: 06/18/21 09:16 Last Admin: 06/18/21 11:50 Dose: 50 mg Documented by: Diphenhydramine HCl (Diphenhydramine 50 Mg Cap) 50 mg PO ONETIME ONE Stop: 06/18/21 11:46 Last Admin: 06/18/21 12:30 Dose: 50 mg Documented by: Enoxaparin Sodium (Enoxaparin 40 Mg/0.4 Ml Syringe) 40 mg SUBCUT Q24H [facility] Last Admin: 06/19/21 17:47 Dose: 40 mg Documented by: Folic Acid (Folic Acid 1 Mg Tab) 1 mg PO BEDTIME [facility] Last Admin: 06/19/21 20:52 Dose: 1 mg Documented by: Hydromorphone HCl (Hydromorphone 2 Mg/Ml Syringe) 0.5 mg IVPUSH ONETIME ONE Stop: 06/18/21 01:49 Last Admin: 06/18/21 02:01 Dose: 0.5 mg Documented by: Hydromorphone HCl (Hydromorphone 1 Mg/Ml Syringe) 0.5 mg IVPUSH Q2H PRN PRN Reason: Pain Last Admin: 06/19/21 09:14 Dose: 0.5 mg Documented by: Ceftriaxone Sodium/Dextrose 1 (gm/ Premix) 50 mls @ 100 mls/hr IV ONETIME ONE Stop: 06/18/21 00:37 Last Admin: 06/18/21 00:34 Dose: 100 mls/hr Documented by: Vancomycin HCl 1,500 mg/ (Sodium Chloride) 100 mls @ 100 mls/hr IV ONETIME ONE Stop: 06/18/21 01:07 Last Admin: 06/18/21 00:52 Dose: Not Given Documented by: Vancomycin HCl 1.5 gm/ Premix 300 mls @ 200 mls/hr IV ONETIME ONE Stop: 06/18/21 02:11 Vancomycin HCl 1.5 gm/ Premix 300 mls @ 200 mls/hr IV ONETIME ONE; Protocol Stop: 06/18/21 02:29 Last Admin: 06/18/21 01:21 Dose: 200 mls/hr Documented by: Daptomycin 600 mg/ Sodium (Chloride) 20 mls @ 300 mls/hr IVPUSH DAILY [facility] Last Admin: 06/18/21 03:30 Dose: 300 mls/hr Documented by: Daptomycin 600 mg/ Sodium (Chloride) 12 mls @ 180 mls/hr IVPUSH DAILY [facility] Last Admin: 06/20/21 09:46 Dose: 180 mls/hr Documented by: Lorazepam (Lorazepam 2 Mg/Ml Sdv) 1 mg IVPUSH ONETIME ONE Stop: 06/18/21 00:09 Last Admin: 06/18/21 00:34 Dose: 1 mg Documented by: Morphine Sulfate (Morphine 4 Mg/Ml Syringe) 4 mg IVPUSH ONETIME ONE Stop: 06/18/21 00:09 Last Admin: 06/18/21 00:34 Dose: 4 mg Documented by: Ondansetron HCl (Ondansetron 4 Mg/2 Ml Sdv) 4 mg IVPUSH ONETIME ONE Stop: 06/18/21 00:36 Last Admin: 06/18/21 00:39 Dose: 4 mg Documented by: Ondansetron HCl (Ondansetron 4 Mg/2 Ml Sdv) 4 mg IVPUSH Q6H PRN PRN Reason: Nausea/Vomiting Last Admin: 06/20/21 05:54 Dose: 4 mg Documented by: Oxycodone/Acetaminophen (Acetaminophen/Oxycodone 325-5 Mg Tab) 1 tab PO Q4H PRN PRN Reason: Pain (severe 7-10) Last Admin: 06/20/21 09:45 Dose: 1 tab Documented by: Pantoprazole Sodium (Pantoprazole 40 Mg Tab.Cr) 40 mg PO ACBREAKFAST [facility] Last Admin: 06/20/21 07:48 Dose: 40 mg Documented by: Desvenlafaxine Succinate [Pristiq] 100 Mg Tab.Er.24h 2 each PO DAILY [facility] Last Admin: 06/20/21 09:19 Dose: 2 each Documented by: Propranolol HCl (Propranolol 60 Mg Cap.Er) 120 mg PO DAILY [facility] Last Admin: 06/20/21 09:18 Dose: 120 mg Documented by: Sodium Chloride (Sodium Chloride 0.9% 10 Ml Syringe) 10 ml FLUSH ASDIRECTED PRN PRN Reason: Keep Vein Open Last Admin: 06/19/21 20:51 Dose: 10 ml Documented by: Sodium Chloride (Sodium Chloride 0.9% 2.5 Ml Syringe) 2.5 ml FLUSH ASDIRECTED PRN PRN Reason: Keep Vein Open Trazodone HCl (Trazodone 50 Mg Tab) 50 mg PO BEDTIME [facility] Last Admin: 06/19/21 20:51 Dose: 50 mg Documented by: - Free Text/Narrative Note: I have seen and examined the patient with the resident. I have discussed findings and treatment plan with resident. I agree with the assessment and plan as outlined in the following note.
== END 2021-06-20 13:28 | disposition home or self-care (01) ==
LOC: MW.ED 22:27 → MW.MS 06-18 01:49
PROVIDERS: ADMIT Internal Medicine; ATTEND Internal Medicine
DX: L03.011 Cellulitis of right finger (principal); I10 Essential (primary) hypertension; E66.9 Obesity, unspecified; F17.210 Nicotine dependence, cigarettes, uncomplicated; F32.9 Major depressive disorder, single episode, unspecified; Z20.822 Contact with and (suspected) exposure to COVID-19; Z88.8 Allergy status to other drugs, medicaments and biological substances; Z88.1 Allergy status to other antibiotic agents; Z91.018 Allergy to other foods; Z79.899 Other long term (current) drug therapy
CPT/HCPCS: 36415; 73120; 80048; 82607; 82746; 84703; 85025; 87040; 87635; 96365; 96367; 96375; 99284; A9270; J0696; J0878; J1170; J1200; J1650; J2060; J2270; J2405; J3370; 96372; 96376; G0378; U0002

== ENCOUNTER 2021-06-29 23:20 | Emergency (ER) | payer BC ==
--- NOTE | 2021-06-29 23:44 | EDM.PDOC ---
ED HPI GENERAL MEDICAL PROBLEM - General Chief Complaint: Bite:Animal, Insect Stated Complaint: SWOLLEN FINGER FROM SPIDER BITE Time Seen by Provider: 06/29/21 23:29 Source of Information: Reports: Patient History Limitations: Reports: No Limitations - History of Present Illness INITIAL COMMENTS - FREE TEXT/NARRATIVE: Patient is a 30-year-old female who presents today for increased hand pain. Patient had a spider bite or is on antibiotics a few weeks ago was admitted for IV antibiotics. She presents today because she has increased pain to the right hand. On exam there is no increased redness no swelling but she says the hand at times gets pain and increased numbness at the tips of her finger. Denies any other complaints no fever chills no new injuries to the hand. Finger-Ring Pain Score (Numeric/FACES): 9 - Related Data Allergies Allergy/AdvReac Type Severity Reaction Status Date / Time NSAIDS (Non-Steroidal Allergy Anaphylactic Verified 06/18/21 03:02 Anti-Inflamma Shock strawberry Allergy Swelling Verified 06/18/21 03:02 vancomycin Allergy Swollen Verified 06/18/21 03:02 Eyes Home Meds: Home Meds Desvenlafaxine Succinate [Pristiq] 200 mg PO DAILY 03/18/20 [History] clonazePAM [Clonazepam] 1 mg PO BID PRN 03/18/20 [History] traZODone HCl [Trazodone HCl] 50 mg PO ASDIRECTED 03/18/20 [History] Pantoprazole Sodium [Protonix] 20 mg PO DAILY 06/18/21 [History] Propranolol HCl [Propranolol HCl ER] 120 mg PO DAILY 06/18/21 [History] Acetaminophen/oxyCODONE [Percocet 325-5 MG] 1 tab PO Q8HR PRN #5 tablet 06/20/21 [Rx] Cyanocobalamin (Vitamin B12) [Vitamin B12] 500 mcg PO DAILY 14 Days #14 tablet 06/20/21 [Rx] Doxycycline [Vibra-Tabs] 100 mg PO Q12HR 4 Days #8 tab 06/20/21 [Rx] Folic Acid 1 mg PO BEDTIME 14 Days #14 tablet 06/20/21 [Rx] Past Medical History - Past Health History Medical/Surgical History: Denies Medical/Surgical History HEENT History: Reports: Cataract, Impaired Vision Cardiovascular History: Reports: Hypertension Respiratory History: Reports: None Gastrointestinal History: Reports: None Genitourinary History: Reports: Other (See Below) Other Genitourinary History: hydronephrosis OUTSIDE PHYSICAL DAMAGE APPRAISER History: Reports: Hyperemesis, Musculoskeletal History: Reports: None Neurological History: Reports: Concussion, Migraines Psychiatric History: Reports: Anxiety, Depression, Panic Attack Endocrine/Metabolic History: Reports: Obesity/BMI 30+ 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 Hematologic History: Reports: Anemia Immunologic History: Reports: None Oncologic (Cancer) History: Reports: None Dermatologic History: Reports: None - Infectious Disease History Infectious Disease History: Reports: Chicken Pox - Past Surgical History Head Surgeries/Procedures: Reports: None HEENT Surgical History: Reports: Oral Surgery Female Surgical History: Reports: Other (See Below) Other Female Surgeries/Procedures: cyst removed laparoscopy Social & Family History - Family History HEENT: Reports: Cataract, Impaired Vision Cardiac: Reports: High Cholesterol, Hypertension Respiratory: Reports: Asthma GI: Reports: Cholelithiasis : Reports: None OBGYN: Reports: , Recurrent Spontaneous Neurological: Reports: CVA, Dementia, Migraines Psychiatric: Reports: Anxiety, Panic Attack Endocrine/Metabolic: Reports: None Hematologic: Reports: None Immunologic: Reports: None Dermatologic: Reports: None Oncologic: Reports: Lung - Caffeine Use Caffeine Use: Reports: Coffee, Energy Drinks Review of Systems - Review of Systems Review Of Systems: See Below Constitutional: Reports: No Symptoms Eyes: Reports: No Symptoms Ears: Reports: No Symptoms Nose: Reports: No Symptoms Mouth/Throat: Reports: No Symptoms Respiratory: Reports: No Symptoms Cardiovascular: Reports: No Symptoms GI/Abdominal: Reports: No Symptoms Genitourinary: Reports: No Symptoms Musculoskeletal: Reports: Hand Pain Skin: Reports: No Symptoms Neurological: Reports: No Symptoms Psychiatric: Reports: No Symptoms ED EXAM, GENERAL - Physical Exam Exam: See Below Exam Limited By: No Limitations General Appearance: Alert, WD/WN, No Apparent Distress Eye Exam: Bilateral Eye: EOMI, PERRL Respiratory/Chest: No Respiratory Distress, Lungs Clear, Normal Breath Sounds Cardiovascular: Normal Peripheral Pulses, Regular Rate, Rhythm GI/Abdominal: Normal Bowel Sounds, Soft, Non-Tender Extremities: Normal Inspection, Normal Range of Motion. No: Non-Tender (Is over the third MCP ) Neurological: Alert, Oriented Course - Vital Signs Last Recorded V/S: Last Vital Signs Temp 97.2 F 08/11/21 23:45 Pulse 78 06/29/21 23:45 Resp 20 06/29/21 23:45 BP 116/91 H 06/29/21 23:45 Pulse Ox 100 06/29/21 23:45 - Orders/Labs/Meds Labs: Laboratory Tests 06/30/21 06/30/21 Range/Units 00:18 00:18 WBC 8.48 (4.0-11.0) K/uL RBC 3.97 L (4.30-5.90) M/uL Hgb 13.2 (12.0-16.0) g/dL Hct 39.6 (36.0-46.0) % MCV 99.7 H (80.0-98.0) fL MCH 33.2 H (27.0-32.0) pg MCHC 33.3 (31.0-37.0) g/dL RDW Std Deviation 42.4 (28.0-62.0) fl RDW Coeff of David 12 (11.0-15.0) % Plt Count 289 (150-400) K/uL MPV 10.00 (7.40-12.00) fL Neut % (Auto) 56.4 (48.0-80.0) % Lymph % (Auto) 32.3 (16.0-40.0) % [place] % (Auto) 7.7 (0.0-15.0) % Eos % (Auto) 3.1 (0.0-7.0) % Baso % (Auto) 0.5 (0.0-1.5) % Neut # (Auto) 4.8 (1.4-5.7) K/uL Lymph # (Auto) 2.7 H (0.6-2.4) K/uL [place] # (Auto) 0.7 (0.0-0.8) K/uL Eos # (Auto) 0.3 (0.0-0.7) K/uL Baso # (Auto) 0.0 (0.0-0.1) K/uL Sodium 137 (136-145) mmol/L Potassium 3.7 (3.5-5.1) mmol/L Chloride 103 (98-107) mmol/L Carbon Dioxide 21.0 (21.0-32.0) mmol/L BUN 8 (7.0-18.0) mg/dL Creatinine 0.7 (0.6-1.0) mg/dL Est Cr Clr Drug Dosing 95.44 mL/min Estimated GFR (MDRD) > 60.0 ml/min Glucose 97 (74-106) mg/dL Calcium 8.4 L (8.5-10.1) mg/dL Total Bilirubin 0.3 (0.2-1.0) mg/dL AST 104 H (15-37) IU/L ALT 61 (14-63) IU/L Alkaline Phosphatase 84 (46-116) U/L Total Protein 8.0 (6.4-8.2) g/dL Albumin 3.6 (3.4-5.0) g/dL Globulin 4.4 H (2.6-4.0) g/dL Albumin/Globulin Ratio 0.8 L (0.9-1.6) Meds: Medications Discontinued Medications Generic Name Dose Route Start Last Admin Trade Name Freq PRN Reason Stop Dose Admin Tramadol HCl 50 mg 06/29/21 23:55 06/30/21 00:29 Tramadol 50 Mg Tab PO 06/29/21 23:56 50 mg ONETIME ONE Administration - Re-Assessments/Exams Free Text/Narrative Re-Assessment/Exam: 06/30/21 01:01 Patient still complains of some pain to the hand. On exam there is no noticeable swelling no redness. We did x-rays that labs not show any elevated white count. Patient continues to have pain we want her to follow-up with a hand specialist that we can make a referral for her or her primary doctor can. Departure - Departure Time of Disposition: 01:02 Disposition: Home, Self-Care 01 Condition: Good Clinical Impression: Hand pain, right - Discharge Information *PRESCRIPTION DRUG MONITORING PROGRAM REVIEWED*: Not Applicable *COPY OF PRESCRIPTION DRUG MONITORING REPORT IN PATIENT JAMES: Not Applicable Instructions: Insect Bite, Adult, [id number] Referrals: Ermelinda Durán CHAIR LIFT OPERATOR [Primary Care Provider] - Forms: ED Department Discharge Additional Instructions: The following information is given to patients seen in the emergency department who are being discharged to home. This information is to outline your options for follow-up care. We provide all patients seen in our emergency department with a follow-up referral. The need for follow-up, as well as the timing and circumstances, are variable depending upon the specifics of your emergency department visit. If you don't have a primary care physician on staff, we will provide you with a referral. We always advise you to contact your personal physician following an emergency department visit to inform them of the circumstance of the visit and for follow-up with them and/or the need for any referrals to a consulting specialist. The emergency department will also refer you to a specialist when appropriate. This referral assures that you have the opportunity for follow-up care with a specialist. All of these measure are taken in an effort to provide you with optimal care, which includes your follow-up. Under all circumstances we always encourage you to contact your private physician who remains a resource for coordinating your care. When calling for follow-up care, please make the office aware that this follow-up is from your recent emergency room visit. If for any reason you are refused follow-up, please contact the [facility] Emergency Department at and asked to speak to the emergency department charge nurse. Please follow up with your primary care physician. If you do not have a primary care physician, see below: Raúl Salazar MD Hand and Wrist Surgery [phone] [place] [address] [address] You are seen today for increased hand pain. You had a possible spider bite a few weeks ago and admitted to hospital for antibiotics. Today your hand does not look red or reinfected. If you are still having pain we recommend you follow-up with a hand specialist for further care. We also did x-rays not show any new signs of swelling or fractures. Above the number to a hand specialist in [place] that you can call and hopefully follow-up with it. Sepsis Event Note (ED) - Focused Exam Vital Signs: Vital Signs Temp Pulse Resp BP Pulse Ox 06/29/21 23:45 97.2 F 78 20 116/91 H 100 - Assessment/Plan Plan: Patient is a 30-year-old female presents today for increased right hand pain. Patient had a cellulitis of the hand and required IV antibiotics. On exam the hand is not red no acute swelling. We will obtain labs x-ray. Patient may require to see a hand specialist as outpatient.
[2021-06-29] MEDS ORDERED: traMADol 50 MG Tab PO ONE (23:55)
--- NOTE | 2021-06-30 00:19 | CR ---
INDICATION: Hand pain TECHNIQUE: Hand radiograph 3 views right COMPARISON: None FINDINGS: Bone: No acute fractures or aggressive bone lesions are identified. There is a 4 mm bone present in the distal radius. Joint: The carpal and metacarpal-phalangeal joints are unremarkable in appearance. The interphalangeal joints are normal in appearance. Soft tissue: Unremarkable. No radiopaque foreign bodies are seen. IMPRESSION: 1. No acute osseous injuries or abnormalities are noted. Dictated by Christos Cain MD @ 06/30/2021 12:18:10 AM Dictated by: Christos Cain MD @ 06/30/2021 00:18:14 (Electronically Signed)
[2021-06-30 00:45] LABS: BLOOD UREA NITROGEN,BUN 8 mg/dL (7.0-18.0); CHLORIDE,CL 103 mmol/L (98-107); GLUCOSE RANDOM 97 mg/dL (74-106); POTASSIUM,K 3.7 mmol/L (3.5-5.1); SODIUM,NA 137 mmol/L (136-145)
[2021-06-30 01:22] VITALS: BP 118/75; PULSE 83
== END 2021-06-30 01:20 | disposition home or self-care (01) ==
LOC: MW.ED 23:20
DX: M79.641 Pain in right hand (principal); I10 Essential (primary) hypertension; E66.9 Obesity, unspecified; Z68.44 Body mass index [BMI] 60.0-69.9, adult; Z79.899 Other long term (current) drug therapy; Z91.018 Allergy to other foods; Z88.1 Allergy status to other antibiotic agents; Z88.8 Allergy status to other drugs, medicaments and biological substances
CPT/HCPCS: 36415; 73130; 80053; 85025; 99283; A9270

== ENCOUNTER 2021-07-21 13:33 | Emergency (ER) | payer SELFPAY ==
[2021-07-21] MEDS ORDERED: Sodium Chloride 0.9% 1,000 ML IV ONE (13:36)
[2021-07-21] MEDS ORDERED: Ondansetron 4 MG/2 ML SDV IVPUSH ONE (13:36)
--- NOTE | 2021-07-21 14:11 | PCM.EKG ---
#1 Interpretation EKG Date: 07/21/21 Time: 13:45 Rhythm: NSR Rate (Beats/Min): 102 [place]: Normal P-Wave: Present QRS: Normal ST-T: Normal QT: Normal [place]/PQ Interval: 117 EKG Interpretation Comments: no acute ischemic changes
[2021-07-21 14:59] LABS: BLOOD UREA NITROGEN,BUN 4 mg/dL (7.0-18.0); CARBON DIOXIDE,CO2 27.3 mmol/L (21.0-32.0); CHLORIDE,CL 101 mmol/L (98-107); GLUCOSE RANDOM 95 mg/dL (74-106); POTASSIUM,K 3.3 mmol/L (3.5-5.1); SODIUM,NA 138 mmol/L (136-145)
--- NOTE | 2021-07-21 15:00 | EDM.PDOC ---
ED HPI GENERAL MEDICAL PROBLEM - General Chief Complaint: General Stated Complaint: CHEST PAIN Time Seen by Provider: 07/21/21 13:35 Source of Information: Reports: Patient History Limitations: Reports: No Limitations - History of Present Illness INITIAL COMMENTS - FREE TEXT/NARRATIVE: HISTORY AND PHYSICAL: History of present illness: Patient is a 31-year-old female who presents to the emergency room with complaints of inspiratory chest pain, shortness of breath and feeling "foggy". She states she was at the gas station and symptoms suddenly came on, she states she felt like she could not function for few moments and forgot what she was doing. She states she does have a history of high blood pressure, anxiety and depression. Patient denies any fever, chills, headache, change in vision, syncope or near syncope. Denies any back pain, hemoptysis or cough. Denies any abdominal pain, nausea, vomiting, diarrhea, constipation or dysuria. Has not noted any blood in urine or stool. Patient has been eating and drinking appropriately. Review of systems: As per history of present illness and below otherwise all systems reviewed and negative. Past medical history: As per history of present illness and as reviewed below otherwise noncontributory. Surgical history: As per history of present illness and as reviewed below otherwise noncontributory. Social history: See social history for further information Family history: As per history of present illness and as reviewed below otherwise noncontributory. Physical exam: General: Well developed and well nourished 31-year-old female. Alert and orientated x 3. Nontoxic in appearance and in no acute distress. Vital signs are stable and have been reviewed by me. Nursing notes were reviewed. HEENT: Atraumatic, normocephalic, pupils equal and reactive bilaterally, negative for conjunctival pallor or scleral icterus, mucous membranes moist, TMs normal bilaterally, throat clear, neck supple, nontender, trachea midline. No drooling or trismus noted. No meningeal signs. No hot potato voice noted. Lungs: Clear to auscultation bilaterally. No wheezes, rales, or rhonchi. Chest nontender. Normal work of breathing, no accessory muscles used. Heart: S1S2, regular rate and rhythm without overt murmur, gallops, or rubs. No JVD. No peripheral edema Abdomen: Soft, nondistended, nontender. Normoactive bowel sounds. Negative for masses or costovertebral tenderness. Pelvis: Stable nontender. Genitourinary/Rectal: Deferred. Skin: Intact, warm, dry. No lesions or rashes noted. Hematologic: No petechiae or purpra. Mucosa appropriate color and normal nail bed color and refill. Extremities: Atraumatic, moves all extremities per self without difficulty or deficits, negative for cords or calf pain. Neurovascular unremarkable. Neuro: Awake, alert, oriented. Cranial nerves II through XII unremarkable. Cerebellum unremarkable. Motor and sensory unremarkable throughout. Exam nonfocal. Psychiatric: Mood and affect are appropriate. Normal thought process. Answering questions appropriately. Please note that the patient was seen and evaluated during the 2019 SARS-CoV-2 novel coronavirus pandemic period. Community viral transmission is ongoing at time of this encounter and the emergency department is operating under pandemic response procedures. Medical Decision Making: Patient is a 31-year-old female who presents to the emergency room with complaints of inspiratory chest pain, shortness of breath and feeling off. She states symptoms came on all of a sudden once she was at a gas station attempting to pay for something. She does appear anxious as if she is having a panic attack. States she does have a history of anxiety. We will do lab work and EKG/checks x-ray. She does appear to have a urinary tract infection and low TSH. We will treat the urinary tract infection with antibiotics, culture has been added. We will have her follow-up with her primary care provider for further evaluation of her thyroid. I have talked with the patient about today's findings, in addition to providing specific details for plan of care. Reassessment at the time of disposition demonstrates that the patient is in no acute distress. The patient is stable for discharge, counseling was provided and we discussed in great detail signs and symptoms that would prompt them to return to the Emergency Department. Medication, follow up and supportive care measures were reviewed and discussed. Voices understanding and is agreeable to plan of care. Denies any further questions or concerns at this time. Diagnostics: CBC, CMP, Troponin, EKG, CXR, TSH, UA, HCGU Therapeutics: IV fluid, Ativan Prescription: Bactrim DS Impression: Hyperthyroidism UTI Plan: 1. You were evaluated today on an emergent basis. Your labs are within normal limits with the exception bladder infection, please take the antibiotic as directed. Also you have low TSH (meaning that your thyroid is making too much thyroid hormone). I want you to see your primary care provider and/or recommended specialist in the next few days for re-evaluation and further care/management of this (several different treatment options for this). 2. You can alternate Tylenol and ibuprofen as needed for pain and fever management. 3. If your symptoms should worsen, new symptoms develop or any of the signs and symptoms we discussed should arise please return to the emergency room or call 911 (if needed). Definitive disposition and diagnosis as appropriate pending reevaluation and review of above. lungs Pain Score (Numeric/FACES): 4 - Related Data Allergies Allergy/AdvReac Type Severity Reaction Status Date / Time NSAIDS (Non-Steroidal Allergy Anaphylactic Verified 07/21/21 13:35 Anti-Inflamma Shock strawberry Allergy Swelling Verified 07/21/21 13:35 vancomycin Allergy Swollen Verified 07/21/21 13:35 Eyes Home Meds: Home Meds Desvenlafaxine Succinate [Pristiq] 200 mg PO DAILY 03/18/20 [History] clonazePAM [Clonazepam] 1 mg PO BID PRN 03/18/20 [History] Pantoprazole Sodium [Protonix] 20 mg PO DAILY 06/18/21 [History] Propranolol HCl [Propranolol HCl ER] 120 mg PO DAILY 06/18/21 [History] Cyanocobalamin (Vitamin B12) [Vitamin B12] 500 mcg PO DAILY 14 Days #14 tablet 06/20/21 [Rx] Folic Acid 1 mg PO BEDTIME 14 Days #14 tablet 06/20/21 [Rx] Sulfamethoxazole/Trimethoprim [Bactrim Ds Tablet] 1 each PO BID 5 Days #10 tablet 07/21/21 [Rx] Past Medical History - Past Health History Medical/Surgical History: Denies Medical/Surgical History HEENT History: Reports: Cataract, Impaired Vision Cardiovascular History: Reports: Hypertension Respiratory History: Reports: None Gastrointestinal History: Reports: None Genitourinary History: Reports: Other (See Below) Other Genitourinary History: hydronephrosis TAFFY PULLER History: Reports: Hyperemesis, Musculoskeletal History: Reports: None Neurological History: Reports: Concussion, Migraines Psychiatric History: Reports: Anxiety, Depression, Panic Attack Endocrine/Metabolic History: Reports: Obesity/BMI 30+ 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 Irrigationist: None Hematologic History: Reports: Anemia Immunologic History: Reports: None Oncologic (Cancer) History: Reports: None Dermatologic History: Reports: None - Infectious Disease History Infectious Disease History: Reports: Chicken Pox - Past Surgical History Head Surgeries/Procedures: Reports: None HEENT Surgical History: Reports: Oral Surgery Cardiovascular Surgical History: Reports: None Respiratory Surgical History: Reports: None GI Surgical History: Reports: None Female Surgical History: Reports: Other (See Below) Other Female Surgeries/Procedures: cyst removed laparoscopy Endocrine Surgical History: Reports: None Musculoskeletal Surgical History: Reports: None Social & Family History - Family History Family Medical History: No Pertinent Family History HEENT: Reports: Cataract, Impaired Vision Cardiac: Reports: High Cholesterol, Hypertension Respiratory: Reports: Asthma GI: Reports: Cholelithiasis : Reports: None OBGYN: Reports: , Recurrent Spontaneous Neurological: Reports: CVA, Dementia, Migraines Psychiatric: Reports: Anxiety, Panic Attack Endocrine/Metabolic: Reports: None Hematologic: Reports: None Immunologic: Reports: None Dermatologic: Reports: None Oncologic: Reports: Lung - Tobacco Use Tobacco Use Status *Q: Current Every Day Tobacco User Years of Tobacco use: 10 Packs/Tins Daily: 0.5 - Caffeine Use Caffeine Use: Reports: None - Recreational Drug Use Recreational Drug Use: No ED ROS GENERAL - Review of Systems Review Of Systems: Comprehensive ROS is negative, except as noted in HPI. ED EXAM, GENERAL - Physical Exam Exam: See Below (See dictation) Course - Vital Signs Last Recorded V/S: Last Vital Signs Temp 98.2 F 07/21/21 15:12 Pulse 88 07/21/21 15:30 Resp 18 07/21/21 15:30 BP 137/78 07/21/21 15:30 Pulse Ox 97 07/21/21 15:30 - Orders/Labs/Meds Orders: Active Orders 24 hr Category Date Time Status Chest 1V Frontal [CR] Stat Exams 07/21/21 13:36 Taken CULTURE URINE [MREF] Stat Lab 07/21/21 14:06 Received Labs: Laboratory Tests 07/21/21 07/21/21 07/21/21 Range/Units 14:06 14:06 14:06 WBC 5.10 (4.0-11.0) K/uL RBC 4.09 L (4.30-5.90) M/uL Hgb 13.6 (12.0-16.0) g/dL Hct 41.0 (36.0-46.0) % MCV 100.2 H (80.0-98.0) fL MCH 33.3 H (27.0-32.0) pg MCHC 33.2 (31.0-37.0) g/dL RDW Std Deviation 47.9 (28.0-62.0) fl RDW Coeff of David 13 (11.0-15.0) % Plt Count 159 (150-400) K/uL MPV 11.20 (7.40-12.00) fL Neut % (Auto) 58.0 (48.0-80.0) % Lymph % (Auto) 30.6 (16.0-40.0) % [place] % (Auto) 10.4 (0.0-15.0) % Eos % (Auto) 0.6 (0.0-7.0) % Baso % (Auto) 0.4 (0.0-1.5) % Neut # (Auto) 3.0 (1.4-5.7) K/uL Lymph # (Auto) 1.6 (0.6-2.4) K/uL [place] # (Auto) 0.5 (0.0-0.8) K/uL Eos # (Auto) 0.0 (0.0-0.7) K/uL Baso # (Auto) 0.0 (0.0-0.1) K/uL Nucleated RBC % 0.0 /100WBC Nucleated RBCs # 0 K/uL D-Dimer, Quantitative (0.0-0.50) mg/L FEU Sodium (136-145) mmol/L Potassium (3.5-5.1) mmol/L Chloride (98-107) mmol/L Carbon Dioxide (21.0-32.0) mmol/L BUN (7.0-18.0) mg/dL Creatinine (0.6-1.0) mg/dL Est Cr Clr Drug Dosing mL/min Estimated GFR (MDRD) ml/min Glucose (74-106) mg/dL Calcium (8.5-10.1) mg/dL Total Bilirubin (0.2-1.0) mg/dL AST (15-37) IU/L ALT (14-63) IU/L Alkaline Phosphatase (46-116) U/L Troponin I (0.000-0.056) ng/mL Total Protein (6.4-8.2) g/dL Albumin (3.4-5.0) g/dL Globulin (2.6-4.0) g/dL Albumin/Globulin Ratio (0.9-1.6) TSH, Ultra Sensitive (0.36-3.74) uIU/mL Urine Color YELLOW Urine Appearance CLOUDY Urine pH 6.5 (5.0-8.0) Ur Specific Orient 1.020 (1.001-1.035) Urine Protein TRACE H (NEGATIVE) mg/dL Urine Glucose (UA) NEGATIVE (NEGATIVE) mg/dL Urine Ketones 15 H (NEGATIVE) mg/dL Urine Occult Blood NEGATIVE (NEGATIVE) Urine Nitrite NEGATIVE (NEGATIVE) Urine Bilirubin SMALL H (NEGATIVE) Urine Ictotest NEGATIVE Urine Urobilinogen 0.2 (<2.0) EU/dL Ur Leukocyte Esterase SMALL H (NEGATIVE) Urine RBC 0-2 (0-2/HPF) Urine WBC 30-40 (0-5/HPF) Ur Epithelial Cells FEW (NONE-FEW) Urine Bacteria FEW (NEGATIVE) Urine Mucus LIGHT (NONE-MOD) Urine HCG, Qual NEGATIVE (NEGATIVE) 07/21/21 07/21/21 Range/Units 14:06 14:06 WBC (4.0-11.0) K/uL RBC (4.30-5.90) M/uL Hgb (12.0-16.0) g/dL Hct (36.0-46.0) % MCV (80.0-98.0) fL MCH (27.0-32.0) pg MCHC (31.0-37.0) g/dL RDW Std Deviation (28.0-62.0) fl RDW Coeff of David (11.0-15.0) % Plt Count (150-400) K/uL MPV (7.40-12.00) fL Neut % (Auto) (48.0-80.0) % Lymph % (Auto) (16.0-40.0) % [place] % (Auto) (0.0-15.0) % Eos % (Auto) (0.0-7.0) % Baso % (Auto) (0.0-1.5) % Neut # (Auto) (1.4-5.7) K/uL Lymph # (Auto) (0.6-2.4) K/uL [place] # (Auto) (0.0-0.8) K/uL Eos # (Auto) (0.0-0.7) K/uL Baso # (Auto) (0.0-0.1) K/uL Nucleated RBC % /100WBC Nucleated RBCs # K/uL D-Dimer, Quantitative 0.46 (0.0-0.50) mg/L FEU Sodium 138 (136-145) mmol/L Potassium 3.3 L (3.5-5.1) mmol/L Chloride 101 (98-107) mmol/L Carbon Dioxide 27.3 (21.0-32.0) mmol/L BUN 4 L (7.0-18.0) mg/dL Creatinine 0.9 (0.6-1.0) mg/dL Est Cr Clr Drug Dosing 76.77 mL/min Estimated GFR (MDRD) > 60.0 ml/min Glucose 95 (74-106) mg/dL Calcium 8.0 L (8.5-10.1) mg/dL Total Bilirubin 0.3 (0.2-1.0) mg/dL AST 92 H (15-37) IU/L ALT 74 H (14-63) IU/L Alkaline Phosphatase 92 (46-116) U/L Troponin I < 0.050 (0.000-0.056) ng/mL Total Protein 7.8 (6.4-8.2) g/dL Albumin 3.4 (3.4-5.0) g/dL Globulin 4.4 H (2.6-4.0) g/dL Albumin/Globulin Ratio 0.8 L (0.9-1.6) TSH, Ultra Sensitive 0.30 L (0.36-3.74) uIU/mL Urine Color Urine Appearance Urine pH (5.0-8.0) Ur Specific Orient (1.001-1.035) Urine Protein (NEGATIVE) mg/dL Urine Glucose (UA) (NEGATIVE) mg/dL Urine Ketones (NEGATIVE) mg/dL Urine Occult Blood (NEGATIVE) Urine Nitrite (NEGATIVE) Urine Bilirubin (NEGATIVE) Urine Ictotest Urine Urobilinogen (<2.0) EU/dL Ur Leukocyte Esterase (NEGATIVE) Urine RBC (0-2/HPF) Urine WBC (0-5/HPF) Ur Epithelial Cells (NONE-FEW) Urine Bacteria (NEGATIVE) Urine Mucus (NONE-MOD) Urine HCG, Qual (NEGATIVE) Meds: Medications Discontinued Medications Generic Name Dose Route Start Last Admin Trade Name Robertq PRN Reason Stop Dose Admin Sodium Chloride 1,000 mls @ 999 mls/hr 07/21/21 13:36 07/21/21 14:15 Normal Saline IV 07/21/21 14:36 999 mls/hr STAT ONE Administration Lorazepam 1 mg 07/21/21 15:13 07/21/21 15:29 Lorazepam 1 Mg Tab PO 07/21/21 15:14 1 mg ONETIME ONE Administration Ondansetron HCl 4 mg 07/21/21 13:36 07/21/21 14:14 Ondansetron 4 Mg/2 Ml Sdv IVPUSH 07/21/21 13:37 4 mg ONETIME ONE Administration Departure - Departure Time of Disposition: 15:54 Disposition: Home, Self-Care 01 Clinical Impression: Hyperthyroidism, Nonspecific chest pain UTI (urinary tract infection) Qualifiers: Urinary tract infection type: acute cystitis Hematuria presence: without hematuria Qualified Code(s): N30.00 - Acute cystitis without hematuria - Discharge Information Prescriptions: Sulfamethoxazole/Trimethoprim [Bactrim Ds Tablet] 1 each PO BID 5 Days #10 tablet Instructions: Hyperthyroidism, Urinary Tract Infection, Adult, [id number] Referrals: Ermelinda Durán BOAT CAPTAIN [Primary Care Provider] - Forms: ED Department Discharge Additional Instructions: The following information is given to patients seen in the emergency department who are being discharged to home. This information is to outline your options for follow-up care. We provide all patients seen in our emergency department with a follow-up referral. The need for follow-up, as well as the timing and circumstances, are variable depending upon the specifics of your emergency department visit. If you don't have a primary care physician on staff, we will provide you with a referral. We always advise you to contact your personal physician following an emergency department visit to inform them of the circumstance of the visit and for follow-up with them and/or the need for any referrals to a consulting specialist. The emergency department will also refer you to a specialist when appropriate. This referral assures that you have the opportunity for follow-up care with a specialist. All of these measure are taken in an effort to provide you with optimal care, which includes your follow-up. Under all circumstances we always encourage you to contact your private physician who remains a resource for coordinating your care. When calling for follow-up care, please make the office aware that this follow-up is from your recent emergency room visit. If for any reason you are refused follow-up, please contact the [facility] Emergency Department at and asked to speak to the emergency department charge nurse. [facility] [address] [place] [id number] [facility] [address] [place] [id number] Thank you for choosing the [facility] emergency department in [place] for your medical needs today. It was a pleasure caring for you. Today you were seen in the emergency department for nonspecific chest pain. 1. You were evaluated today on an emergent basis. Your labs are within normal limits with the exception bladder infection, please take the antibiotic as directed. Also you have low TSH (meaning that your thyroid is making too much thyroid hormone). I want you to see your primary care provider and/or recommended specialist in the next few days for re-evaluation and further care/management of this (several different treatment options for this). 2. You can alternate Tylenol and ibuprofen as needed for pain and fever management. 3. If your symptoms should worsen, new symptoms develop or any of the signs and symptoms we discussed should arise please return to the emergency room or call 911 (if needed). Sepsis Event Note (ED) - Evaluation Sepsis Screening Result: No Definite Risk - Focused Exam Vital Signs: Vital Signs Temp Pulse Resp BP Pulse Ox 07/21/21 15:30 88 18 137/78 97 07/21/21 15:12 98.2 F 82 18 122/74 97 07/21/21 14:17 90 18 134/92 H 95 07/21/21 13:35 97.0 F 104 H 17 134/80 99 - My Orders Last 24 Hours: My Active Orders 07/21/21 13:36 Chest 1V Frontal [CR] Stat 07/21/21 14:06 CULTURE URINE [MREF] Stat - Assessment/Plan Last 24 Hours: My Active Orders 07/21/21 13:36 Chest 1V Frontal [CR] Stat 07/21/21 14:06 CULTURE URINE [MREF] Stat
[2021-07-21] MEDS ORDERED: LORazepam 1 MG Tab PO ONE (15:13)
--- NOTE | 2021-07-21 15:58 | CR ---
CHEST 1 VIEW, 07/21/2021 INDICATION: Shortness of breath. TECHNIQUE: AP upright portable chest. FINDINGS: Clear lungs. Normal heart size and pulmonary vascularity. Normal included skeleton. IMPRESSION: Negative chest. ARACELY VENEGAS M.D. Diagnostic/Nuclear Medicine Radiologist [email or web address] Transcribed: 3:[address]/Dictated by: Aracely Venegas MD @ 07/21/2021 2:55:00 PM (Electronically Signed)
[2021-07-21] MEDS ORDERED: Ondansetron 4 MG Tab.DIS PO ONE (16:00)
[2021-07-21 16:05] VITALS: BP 131/72; PULSE 82
== END 2021-07-21 16:05 | disposition home or self-care (01) ==
LOC: MW.ED 13:33
DX: R07.9 Chest pain, unspecified (principal); N30.00 Acute cystitis without hematuria; E05.90 Thyrotoxicosis, unspecified without thyrotoxic crisis or storm; I10 Essential (primary) hypertension; E66.9 Obesity, unspecified; Z68.30 Body mass index [BMI] 30.0-30.9, adult; Z91.018 Allergy to other foods; Z88.1 Allergy status to other antibiotic agents; Z88.8 Allergy status to other drugs, medicaments and biological substances; Z79.899 Other long term (current) drug therapy; Z72.0 Tobacco use
CPT/HCPCS: 36415; 71045; 80053; 81001; 81025; 84443; 84484; 85025; 85379; 87086; 93005; 96374; 99285; A9270; J2405; J7030

== ENCOUNTER 2021-07-31 00:46 | Emergency (ER) | payer OTHER ==
[2021-07-31] MEDS ORDERED: Sodium Chloride 0.9% 2.5 ML Syringe FLUSH PRN (00:55)
[2021-07-31] MEDS ORDERED: Sodium Chloride 0.9% 10 ML Syringe FLUSH PRN (00:55)
--- NOTE | 2021-07-31 01:01 | EDM.PDOC ---
ED HPI GENERAL MEDICAL PROBLEM - General Chief Complaint: Behavioral/Psych Stated Complaint: OVERDOSE Time Seen by Provider: 07/31/21 00:47 - History of Present Illness INITIAL COMMENTS - FREE TEXT/NARRATIVE: History of present illness: [] The patient said she took an entire bottle of 30 tablets of 100 mg quetiapine. She actually has a bottle that had a prescription for 30 pills prescribed for 820 and she said she had taken 2 pills. Now there is 6-1/2 pills remaining. The number of pills he could be taken max would be 21-1/2 pills. The patient said she did think about killing herself. She is never tried before now she says she feels remorseful and embarrassed. She does not want to . She is not getting along well with her . She plans to go home with her mother after she is cleared medically today. Review of systems: As per history of present illness and below otherwise all systems reviewed and negative. Past medical history: As per history of present illness and as reviewed below otherwise nonc ontributory. Surgical history: As per history of present illness and as reviewed below otherwise noncontributory. Social history: No reported history of drug or alcohol abuse. Family history: As per history of present illness and as reviewed below otherwise noncontributory. Physical exam: Constitutional - well developed, well-nourished and in no acute distress HEENT - normocephalic, no evidence of trauma - external nose and mouth normal - no mass in neck and no JVD - mucosae moist EYES - full EOM, PERRL, no icterus - no evidence of inflammation, injection, or drainage Respiratory - no respiratory distress, equal bilateral expansion, lungs clear to auscultation and no abnormal lung sounds Cardiovascular - Regular Rhythm with S1 and S2 appreciated and no murmur, gallop or rub. GI - abdomen soft without distension or organomegaly - normal bowel sounds - no guard or rebound Musculoskeletal no gross deformity of long bones or joints - no tenderness, swelling or edema Neurologic - Alert and oriented times four - CN II-XII grossly intact - motor sensory and coordination symmetrically normal Psychiatric -depressed mood and flat affect with normal thought content Hematologic - No petechiae or purpura - mucosa appropriate color and sclera not pale - normal nail bed color and refill Integument - no rash or evidence of trauma - normal turgor Diagnostics: [] Therapeutics: [] Impression: [] Plan: [] Definitive disposition and diagnosis as appropriate pending reevaluation and review of above. - Related Data Allergies Allergy/AdvReac Type Severity Reaction Status Date / Time NSAIDS (Non-Steroidal Allergy Anaphylactic Verified 07/31/21 00:52 Anti-Inflamma Shock strawberry Allergy Swelling Verified 07/31/21 00:52 vancomycin Allergy Swollen Verified 07/31/21 00:52 Eyes Home Meds: Home Meds Desvenlafaxine Succinate [Pristiq] 200 mg PO DAILY 03/18/20 [History] clonazePAM [Clonazepam] 1 mg PO BID PRN 03/18/20 [History] Pantoprazole Sodium [Protonix] 20 mg PO DAILY 06/18/21 [History] Propranolol HCl [Propranolol HCl ER] 120 mg PO DAILY 06/18/21 [History] Cyanocobalamin (Vitamin B12) [Vitamin B12] 500 mcg PO DAILY 14 Days #14 tablet 06/20/21 [Rx] QUEtiapine [SEROquel] 100 mg PO ASDIRECTED 07/31/21 [History] Past Medical History - Past Health History Medical/Surgical History: Denies Medical/Surgical History HEENT History: Reports: Cataract, Impaired Vision Cardiovascular History: Reports: Hypertension Respiratory History: Reports: None Gastrointestinal History: Reports: None Genitourinary History: Reports: Other (See Below) Other Genitourinary History: hydronephrosis [employer]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: 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, Musculoskeletal History: Reports: None Neurological History: Reports: Concussion, Migraines Psychiatric History: Reports: Anxiety, Depression, Panic Attack Endocrine/Metabolic History: Reports: Obesity/BMI 30+ 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 [employer] Internship: None Hematologic History: Reports: Anemia Immunologic History: Reports: None Oncologic (Cancer) History: Reports: None Dermatologic History: Reports: None - Infectious Disease History Infectious Disease History: Reports: Chicken Pox - Past Surgical History Head Surgeries/Procedures: Reports: None HEENT Surgical History: Reports: Oral Surgery Cardiovascular Surgical History: Reports: None Respiratory Surgical History: Reports: None GI Surgical History: Reports: None Female Surgical History: Reports: Other (See Below) Other Female Surgeries/Procedures: cyst removed laparoscopy Endocrine Surgical History: Reports: None Musculoskeletal Surgical History: Reports: None Social & Family History - Family History Family Medical History: No Pertinent Family History HEENT: Reports: Cataract, Impaired Vision Cardiac: Reports: High Cholesterol, Hypertension Respiratory: Reports: Asthma GI: Reports: Cholelithiasis : Reports: None OBGYN: Reports: , Recurrent Spontaneous Neurological: Reports: CVA, Dementia, Migraines Psychiatric: Reports: Anxiety, Panic Attack Endocrine/Metabolic: Reports: None Hematologic: Reports: None Immunologic: Reports: None Dermatologic: Reports: None Oncologic: Reports: Lung - Caffeine Use Caffeine Use: Reports: None ED ROS GENERAL - Review of Systems Review Of Systems: Comprehensive ROS is negative, except as noted in HPI. ED EXAM, GENERAL - Physical Exam Exam: See Below Free Text/Narrative:: My physical exam is in the HPI #1 Interpretation EKG Interpretation Comments: EKG shows a sinus rhythm with a heart rate of 91 OK interval 130 with a QT duration of 446 and axis of 35. There is possible left atrial enlargement of the QRS ST and T are within normal limits impression essentially normal EKG #2 Interpretation EKG Interpretation Comments: KG done 07/31/2021 at 2:02 AM sinus rhythm heart rate 72 OK 129 QT 454 [place] XX [address] and T unremarkable impression no significant change Course - Vital Signs Text/Narrative:: 2:50 AM EKG at 2 AM reported to the poison control and they released the patient for medical reasons. The mother attended and said the patient had told her and her father that she did not want to live anymore. They were reluctant to take responsibility for the patient tonight because the patient then was ambivalent about what she would do after she was at the mother's house and her with whom she is having a disagreement was back at work. The patient agreed to let me transfer her to a psychiatric facility. I called [facility] and they do not have beds. 5:18 AM blood pressure 87 systolic. Patient seems alert. She does not want to go to a psychiatric facility. She originally said she wanted to go and stay with her mother. Her mother was here and said she felt more comfortable if the patient would go to psychiatric care. I talked about the possibility of trying to make some kind of plan that would allow her to go and see the counselors at [facility] here in town and the patient said that her mother works there. He said that makes it off court and difficult for her. She said if her mother did not want to let her move into her house that she would make her leave. It seems like a poor plan since the relationship with her was the cause of the patient's sudden depression and spontaneous attempt to kill herself. I agreed to give her a liter of fluids something to help her rest and then reassess for possible placement later 6:20 AM the patient has no plan or any indicators of into her family that works. She wants with her out of the house but he is responsible for getting some of the kids to school. The mother says that the other grandparents and she and the support system are adequate to take care of the children. The patient still depressed confused and does not really have a good plan for how to readjust. While she says she is not known to repeat this overdose she admits that it was potentially lethal overdose and she intended to kill herself. Discussed with Dr. Mistry at [facility] in [place] and together we agreed we would send her there for further evaluation. Patient will be placed on a hold for her own safety. Last Recorded V/S: Last Vital Signs Temp 36.2 C 07/31/21 06:12 Pulse 94 07/31/21 06:12 Resp 16 07/31/21 06:12 BP 109/54 L 07/31/21 06:12 Pulse Ox 96 07/31/21 06:12 - Orders/Labs/Meds Orders: Active Orders 24 hr Category Date Time Status Sodium Chloride 0.9% [Normal Saline] 500 ml Med 07/31/21 01:15 Active IV .BOLUS Sodium Chloride 0.9% [Saline Flush] Med 07/31/21 00:55 Active 10 ml FLUSH ASDIRECTED PRN Sodium Chloride 0.9% [Saline Flush] Med 07/31/21 00:55 Active 2.5 ml FLUSH ASDIRECTED PRN Saline Lock Insert [OM.PC] Stat Oth 07/31/21 00:56 Ordered Medication Orders Sodium Chloride (Normal Saline) 500 mls @ 999 mls/hr IV .BOLUS VERNON Last Admin: 07/31/21 01:15 Dose: 999 mls/hr Documented by: JULIA Sodium Chloride (Sodium Chloride 0.9% 10 Ml Syringe) 10 ml FLUSH ASDIRECTED PRN PRN Reason: Keep Vein Open Last Admin: 07/31/21 01:01 Dose: 10 ml Documented by: JULIA Sodium Chloride (Sodium Chloride 0.9% 2.5 Ml Syringe) 2.5 ml FLUSH ASDIRECTED PRN PRN Reason: Keep Vein Open Last Admin: 07/31/21 01:01 Dose: 2.5 ml Documented by: JULIA Labs: Laboratory Tests 07/31/21 07/31/21 07/31/21 Range/Units 00:55 00:55 00:55 WBC 6.57 (4.0-11.0) K/uL RBC 3.89 L (4.30-5.90) M/uL Hgb 12.9 (12.0-16.0) g/dL Hct 38.2 (36.0-46.0) % MCV 98.2 H (80.0-98.0) fL MCH 33.2 H (27.0-32.0) pg MCHC 33.8 (31.0-37.0) g/dL RDW Std Deviation 41.9 (28.0-62.0) fl RDW Coeff of David 12 (11.0-15.0) % Plt Count 388 (150-400) K/uL MPV 10.40 (7.40-12.00) fL Neut % (Auto) 30.7 L (48.0-80.0) % Lymph % (Auto) 47.3 H (16.0-40.0) % [place] % (Auto) 19.6 H (0.0-15.0) % Eos % (Auto) 2.1 (0.0-7.0) % Baso % (Auto) 0.3 (0.0-1.5) % Neut # (Auto) 2.0 (1.4-5.7) K/uL Lymph # (Auto) 3.1 H (0.6-2.4) K/uL [place] # (Auto) 1.3 H (0.0-0.8) K/uL Eos # (Auto) 0.1 (0.0-0.7) K/uL Baso # (Auto) 0.0 (0.0-0.1) K/uL Sodium 136 (136-145) mmol/L Potassium 4.0 (3.5-5.1) mmol/L Chloride 102 (98-107) mmol/L Carbon Dioxide 24.1 (21.0-32.0) mmol/L BUN 4 L (7.0-18.0) mg/dL Creatinine 0.7 (0.6-1.0) mg/dL Est Cr Clr Drug Dosing 98.71 mL/min Estimated GFR (MDRD) > 60.0 ml/min Glucose 93 (74-106) mg/dL Calcium 8.2 L (8.5-10.1) mg/dL Magnesium (1.8-2.4) mg/dL Total Bilirubin 0.4 (0.2-1.0) mg/dL AST 68 H (15-37) IU/L ALT 57 (14-63) IU/L Alkaline Phosphatase 77 (46-116) U/L Total Protein 7.4 (6.4-8.2) g/dL Albumin 3.3 L (3.4-5.0) g/dL Globulin 4.1 H (2.6-4.0) g/dL Albumin/Globulin Ratio 0.8 L (0.9-1.6) TSH, Ultra Sensitive 0.94 (0.36-3.74) uIU/mL HCG, Qual POSITIVE H (NEG) HCG, Quant mIU/mL Salicylates (0-20) mg/dL Urine Opiates Screen (NEGATIVE) Ur Oxycodone Screen (NEGATIVE) Urine Methadone Screen (NEGATIVE) Acetaminophen ug/mL Ur Barbiturates Screen (NEGATIVE) Ur Phencyclidine Scrn (NEGATIVE) Ur Amphetamine Screen (NEGATIVE) U Methamphetamines Scrn (NEGATIVE) U Benzodiazepines Scrn (NEGATIVE) U Cocaine Metab Screen (NEGATIVE) U Marijuana (THC) Screen (NEGATIVE) Ethyl Alcohol 246 mg/dL SARS-CoV-2 RNA (NITIN) (NEGATIVE) 07/31/21 07/31/21 07/31/21 Range/Units 00:55 00:55 02:15 WBC (4.0-11.0) K/uL RBC (4.30-5.90) M/uL Hgb (12.0-16.0) g/dL Hct (36.0-46.0) % MCV (80.0-98.0) fL MCH (27.0-32.0) pg MCHC (31.0-37.0) g/dL RDW Std Deviation (28.0-62.0) fl RDW Coeff of David (11.0-15.0) % Plt Count (150-400) K/uL MPV (7.40-12.00) fL Neut % (Auto) (48.0-80.0) % Lymph % (Auto) (16.0-40.0) % [place] % (Auto) (0.0-15.0) % Eos % (Auto) (0.0-7.0) % Baso % (Auto) (0.0-1.5) % Neut # (Auto) (1.4-5.7) K/uL Lymph # (Auto) (0.6-2.4) K/uL [place] # (Auto) (0.0-0.8) K/uL Eos # (Auto) (0.0-0.7) K/uL Baso # (Auto) (0.0-0.1) K/uL Sodium (136-145) mmol/L Potassium (3.5-5.1) mmol/L Chloride (98-107) mmol/L Carbon Dioxide (21.0-32.0) mmol/L BUN (7.0-18.0) mg/dL Creatinine (0.6-1.0) mg/dL Est Cr Clr Drug Dosing mL/min Estimated GFR (MDRD) ml/min Glucose (74-106) mg/dL Calcium (8.5-10.1) mg/dL Magnesium 2.0 (1.8-2.4) mg/dL Total Bilirubin (0.2-1.0) mg/dL AST (15-37) IU/L ALT (14-63) IU/L Alkaline Phosphatase (46-116) U/L Total Protein (6.4-8.2) g/dL Albumin (3.4-5.0) g/dL Globulin (2.6-4.0) g/dL Albumin/Globulin Ratio (0.9-1.6) TSH, Ultra Sensitive (0.36-3.74) uIU/mL HCG, Qual (NEG) HCG, Quant 73.0 mIU/mL Salicylates 1.5 (0-20) mg/dL Urine Opiates Screen NEGATIVE (NEGATIVE) Ur Oxycodone Screen NEGATIVE (NEGATIVE) Urine Methadone Screen NEGATIVE (NEGATIVE) Acetaminophen <2.0 ug/mL Ur Barbiturates Screen NEGATIVE (NEGATIVE) Ur Phencyclidine Scrn NEGATIVE (NEGATIVE) Ur Amphetamine Screen NEGATIVE (NEGATIVE) U Methamphetamines Scrn NEGATIVE (NEGATIVE) U Benzodiazepines Scrn NEGATIVE (NEGATIVE) U Cocaine Metab Screen POSITIVE (NEGATIVE) U Marijuana (THC) Screen NEGATIVE (NEGATIVE) Ethyl Alcohol mg/dL SARS-CoV-2 RNA (NITIN) (NEGATIVE) 07/31/21 Range/Units 02:40 WBC (4.0-11.0) K/uL RBC (4.30-5.90) M/uL Hgb (12.0-16.0) g/dL Hct (36.0-46.0) % MCV (80.0-98.0) fL MCH (27.0-32.0) pg MCHC (31.0-37.0) g/dL RDW Std Deviation (28.0-62.0) fl RDW Coeff of David (11.0-15.0) % Plt Count (150-400) K/uL MPV (7.40-12.00) fL Neut % (Auto) (48.0-80.0) % Lymph % (Auto) (16.0-40.0) % [place] % (Auto) (0.0-15.0) % Eos % (Auto) (0.0-7.0) % Baso % (Auto) (0.0-1.5) % Neut # (Auto) (1.4-5.7) K/uL Lymph # (Auto) (0.6-2.4) K/uL [place] # (Auto) (0.0-0.8) K/uL Eos # (Auto) (0.0-0.7) K/uL Baso # (Auto) (0.0-0.1) K/uL Sodium (136-145) mmol/L Potassium (3.5-5.1) mmol/L Chloride (98-107) mmol/L Carbon Dioxide (21.0-32.0) mmol/L BUN (7.0-18.0) mg/dL Creatinine (0.6-1.0) mg/dL Est Cr Clr Drug Dosing mL/min Estimated GFR (MDRD) ml/min Glucose (74-106) mg/dL Calcium (8.5-10.1) mg/dL Magnesium (1.8-2.4) mg/dL Total Bilirubin (0.2-1.0) mg/dL AST (15-37) IU/L ALT (14-63) IU/L Alkaline Phosphatase (46-116) U/L Total Protein (6.4-8.2) g/dL Albumin (3.4-5.0) g/dL Globulin (2.6-4.0) g/dL Albumin/Globulin Ratio (0.9-1.6) TSH, Ultra Sensitive (0.36-3.74) uIU/mL HCG, Qual (NEG) HCG, Quant mIU/mL Salicylates (0-20) mg/dL Urine Opiates Screen (NEGATIVE) Ur Oxycodone Screen (NEGATIVE) Urine Methadone Screen (NEGATIVE) Acetaminophen ug/mL Ur Barbiturates Screen (NEGATIVE) Ur Phencyclidine Scrn (NEGATIVE) Ur Amphetamine Screen (NEGATIVE) U Methamphetamines Scrn (NEGATIVE) U Benzodiazepines Scrn (NEGATIVE) U Cocaine Metab Screen (NEGATIVE) U Marijuana (THC) Screen (NEGATIVE) Ethyl Alcohol mg/dL SARS-CoV-2 RNA (NITIN) NEGATIVE (NEGATIVE) Meds: Medications Generic Name Dose Route Start Last Admin Trade Name Freq PRN Reason Stop Dose Admin Sodium Chloride 500 mls @ 999 mls/hr 07/31/21 01:15 07/31/21 01:15 Normal Saline IV 999 mls/hr .BOLUS VERNON Administration Sodium Chloride 10 ml 07/31/21 00:55 07/31/21 01:01 Sodium Chloride 0.9% 10 Ml Syringe FLUSH 10 ml ASDIRECTED PRN Administration Keep Vein Open Sodium Chloride 2.5 ml 07/31/21 00:55 07/31/21 01:01 Sodium Chloride 0.9% 2.5 Ml Syringe FLUSH 2.5 ml ASDIRECTED PRN Administration Keep Vein Open Discontinued Medications Generic Name Dose Route Start Last Admin Trade Name Freq PRN Reason Stop Dose Admin Sodium Chloride 1,000 mls @ 1,000 mls/hr 07/31/21 05:20 07/31/21 05:24 Normal Saline IV 07/31/21 06:19 1,000 mls/hr .Bolus ONE Administration Lorazepam 1 mg 07/31/21 05:04 07/31/21 05:24 Lorazepam 2 Mg/Ml Sdv IVPUSH 07/31/21 05:05 1 mg ONETIME ONE Administration Departure - Departure Time of Disposition: 09:00 Disposition: DC/Tfer to Psych Hosp/Unit [facility] Condition: Good Clinical Impression: Overdose, Depression, Mood disorder - Discharge Information Referrals: rEmelinda Durán, [employer] [Primary Care Provider] - Forms: ED Department Discharge Sepsis Event Note (ED) - Focused Exam Vital Signs: Vital Signs Temp Pulse Resp BP Pulse Ox 07/31/21 06:12 36.2 C 94 16 109/54 L 96 07/31/21 04:05 36.3 C 90 18 88/55 L 95 07/31/21 02:18 79 16 101/63 95 07/31/21 00:54 36.3 C 87 18 107/60 96 - My Orders Last 24 Hours: My Active Orders 07/31/21 00:55 Sodium Chloride 0.9% [Saline Flush] 10 ml FLUSH ASDIRECTED PRN Sodium Chloride 0.9% [Saline Flush] 2.5 ml FLUSH ASDIRECTED PRN 07/31/21 00:56 Saline Lock Insert [OM.PC] Stat 07/31/21 01:15 Sodium Chloride 0.9% [Normal Saline] 500 ml IV .BOLUS - Assessment/Plan Last 24 Hours: My Active Orders 07/31/21 00:55 Sodium Chloride 0.9% [Saline Flush] 10 ml FLUSH ASDIRECTED PRN Sodium Chloride 0.9% [Saline Flush] 2.5 ml FLUSH ASDIRECTED PRN 07/31/21 00:56 Saline Lock Insert [OM.PC] Stat 07/31/21 01:15 Sodium Chloride 0.9% [Normal Saline] 500 ml IV .BOLUS
[2021-07-31] MEDS ORDERED: Sodium Chloride 0.9% 500 ML IV SCH (01:15)
[2021-07-31 01:17] LABS: ACETAMINOPHEN <2.0 ug/mL
[2021-07-31 01:25] LABS: BLOOD UREA NITROGEN,BUN 4 mg/dL (7.0-18.0); CARBON DIOXIDE,CO2 24.1 mmol/L (21.0-32.0); CHLORIDE,CL 102 mmol/L (98-107); GLUCOSE RANDOM 93 mg/dL (74-106); SODIUM,NA 136 mmol/L (136-145)
[2021-07-31] MEDS ORDERED: LORazepam 2 MG/ML SDV IVPUSH ONE (05:04)
[2021-07-31] MEDS ORDERED: Sodium Chloride 0.9% 1,000 ML IV ONE (05:20)
[2021-07-31 09:34] VITALS: BP 103/65; PULSE 103
== END 2021-07-31 09:00 ==
LOC: MW.ED 00:46
DX: T43.592A Poisoning by other antipsychotics and neuroleptics, intentional self-harm, initial encounter (principal); F32.9 Major depressive disorder, single episode, unspecified; I10 Essential (primary) hypertension; E66.9 Obesity, unspecified; Z68.29 Body mass index [BMI] 29.0-29.9, adult; Z88.6 Allergy status to analgesic agent; Z91.018 Allergy to other foods; Z88.1 Allergy status to other antibiotic agents; Z79.899 Other long term (current) drug therapy; Z20.822 Contact with and (suspected) exposure to COVID-19
CPT/HCPCS: 36415; 80053; 80143; 80179; 80305; 80307; 83735; 84443; 84702; 84703; 85025; 87635; 93005; 96374; 99285; J2060; J7030; J7040; U0002

== ENCOUNTER 2022-03-20 16:12 | Inpatient (IN) | payer BC ==
[2022-03-20] MEDS: Lactated Ringers 1,000 ML IV SCH ×2 (16:45→20:17)
[2022-03-20] MEDS ORDERED: Carboprost Tromethamine 250 MCG/1 ML Amp IM PRN (17:02)
[2022-03-20] MEDS ORDERED: Tranexamic Acid 1,000 MG in Sodium Chloride 0.9% 100 ML IV PRN (17:02)
[2022-03-20] MEDS ORDERED: Terbutaline 1 MG/ML SDV SUBCUT PRN (17:02)
[2022-03-20] MEDS ORDERED: Lidocaine 1% 50 ML MDV INJECT PRN (17:02)
[2022-03-20] MEDS ORDERED: Misoprostol 200 MCG Tab PO PRN (17:02)
[2022-03-20] MEDS ORDERED: Labetalol 100 MG/20 ML MDV IVPUSH PRN (17:02)
[2022-03-20] MEDS ORDERED: Water For Irrigation,Sterile 1,000 ML Container IRR PRN (17:02)
[2022-03-20] MEDS ORDERED: Methylergonovine 0.2 MG/1 ML Amp IM PRN (17:02)
[2022-03-20] MEDS ORDERED: Sodium Chloride 0.9% 2.5 ML Syringe FLUSH PRN (17:02)
[2022-03-20] MEDS ORDERED: Sodium Chloride 0.9% 10 ML Syringe FLUSH PRN (17:02)
[2022-03-20] MEDS ORDERED: Sodium Chloride 0.9% 20 ML SDV IV PRN (17:02)
[2022-03-20] MEDS ORDERED: Oxytocin/0.9 % Sodium Chloride 30 UNIT/500 ML BAG IV SCH ×2 (17:15)
[2022-03-20] MEDS ORDERED: Ampicillin 2 GM in Sodium Chloride 0.9% 100 ML IV ONE (17:30)
[2022-03-20 17:47] LABS: BLOOD UREA NITROGEN,BUN 7 mg/dL (7.0-18.0); CARBON DIOXIDE,CO2 18.1 mmol/L (21.0-32.0); CHLORIDE,CL 101 mmol/L (98-107); GLUCOSE RANDOM 87 mg/dL (74-106); POTASSIUM,K 3.7 mmol/L (3.5-5.1); SODIUM,NA 135 mmol/L (136-145)
[2022-03-20] MEDS: Misoprostol 25 MCG (1/4 of 100 MCG) Tab VAG SCH (17:55)
[2022-03-20] MEDS ORDERED: ePHEDrine 50 MG/ML SDV IVPUSH PRN ×2 (18:52)
[2022-03-20] MEDS ORDERED: Ropivacaine 200 MG in Premix Bag 1 BAG EPIDUR SCH (19:00)
[2022-03-20] MEDS: Butorphanol 1 MG/ML SDV IVPUSH PRN ×2 (20:42→23:17)
[2022-03-20] MEDS ORDERED: Labetalol 100 MG Tab PO SCH (21:00)
[2022-03-20] MEDS: Ampicillin 1 GM in Sodium Chloride 0.9% 50 ML IV SCH (21:50)
[2022-03-21] MEDS: Misoprostol 25 MCG (1/4 of 100 MCG) Tab VAG SCH ×2 (00:07→12:10)
[2022-03-21] MEDS: Butorphanol 1 MG/ML SDV IVPUSH PRN (01:22)
[2022-03-21] MEDS: Ampicillin 1 GM in Sodium Chloride 0.9% 50 ML IV SCH ×2 (02:13→12:10)
[2022-03-21] MEDS: Lactated Ringers 1,000 ML IV SCH (03:57)
[2022-03-21] MEDS ORDERED: Docusate Sodium 100 MG Cap PO PRN (06:14)
[2022-03-21] MEDS ORDERED: Lanolin 100% Cream 7 GM Tube TOP PRN (06:14)
[2022-03-21] MEDS ORDERED: Witch Hazel Medicated Pads 40/Jar TOP PRN (06:14)
[2022-03-21] MEDS ORDERED: Bisacodyl 10 MG Supp RECTAL PRN (06:14)
[2022-03-21] MEDS ORDERED: Ibuprofen 800 MG Tab PO PRN (06:14)
[2022-03-21] MEDS ORDERED: Benzocaine/Menthol 20%-0.5% Spray 78 GM Cannister TOP PRN (06:14)
[2022-03-21] MEDS ORDERED: Tranexamic Acid 1,000 MG in Sodium Chloride 0.9% 100 ML IV PRN (06:14)
[2022-03-21] MEDS ORDERED: Ibuprofen 400 MG Tab PO PRN (06:14)
[2022-03-21] MEDS: Acetaminophen 500 MG Tab PO PRN ×3 (07:55→20:26)
[2022-03-21] MEDS: Labetalol 100 MG Tab PO SCH ×2 (08:00→20:52)
[2022-03-21] MEDS: Prenatal Multivitamin with Calcium/Folic Acid/Iron Tab PO SCH (08:00)
[2022-03-21] MEDS: Escitalopram 10 MG Tab PO SCH (08:00)
[2022-03-21] MEDS: oxyCODONE 5 MG Tab PO PRN ×5 (09:20→23:29)
[2022-03-22] MEDS: Acetaminophen 500 MG Tab PO PRN ×5 (03:07→20:12)
[2022-03-22] MEDS: oxyCODONE 5 MG Tab PO PRN ×7 (03:08→23:02)
[2022-03-22] MEDS: Escitalopram 10 MG Tab PO SCH (08:08)
[2022-03-22] MEDS: Prenatal Multivitamin with Calcium/Folic Acid/Iron Tab PO SCH (08:08)
[2022-03-22] MEDS: Labetalol 100 MG Tab PO SCH ×2 (08:09→21:09)
[2022-03-23] MEDS: Acetaminophen 500 MG Tab PO PRN ×2 (02:37→09:37)
[2022-03-23] MEDS: oxyCODONE 5 MG Tab PO PRN ×2 (02:38→05:34)
[2022-03-23 07:39] VITALS: BP 120/79; PULSE 77
[2022-03-23] MEDS ORDERED: diphenhydrAMINE 50 MG Cap PO PRN (08:32)
[2022-03-23] MEDS: Escitalopram 10 MG Tab PO SCH (08:45)
[2022-03-23] MEDS: Labetalol 100 MG Tab PO SCH (08:45)
[2022-03-23] MEDS: Prenatal Multivitamin with Calcium/Folic Acid/Iron Tab PO SCH (08:45)
[2022-03-23] MEDS ORDERED: Celecoxib 100 MG Cap PO SCH (09:00)
== END 2022-03-23 11:33 | disposition home or self-care (01) | DRG 560 ==
LOC: MW.OB 16:12 → MW.OBCHECK 16:12 → MW.OB 17:03 → MW.OBCHECK 17:42 → OBSVTOIN 03-21 05:50 → MW.OB 03-21 09:58
PROVIDERS: ADMIT Obstetrics & Gynecology; ATTEND Obstetrics & Gynecology
PROC: 10E0XZZ Delivery of Products of Conception, External Approach (ICD-10-PCS; principal; 2022-03-21)
PROC: 3E0P7VZ Introduction of Hormone into Female Reproductive, Via Natural or Artificial Opening (ICD-10-PCS; 2022-03-21)
PROC: 3E033VJ Introduction of Other Hormone into Peripheral Vein, Percutaneous Approach (ICD-10-PCS; 2022-03-21)
PROC: 10907ZC Drainage of Amniotic Fluid, Therapeutic from Products of Conception, Via Natural or Artificial Opening (ICD-10-PCS; 2022-03-21)
PROC: 3E0R3BZ Introduction of Anesthetic Agent into Spinal Canal, Percutaneous Approach (ICD-10-PCS; 2022-03-21)
PROC: 00HU33Z Insertion of Infusion Device into Spinal Canal, Percutaneous Approach (ICD-10-PCS; 2022-03-21)
DX: O10.92 Unspecified pre-existing hypertension complicating childbirth (principal); O99.892 Other specified diseases and conditions complicating childbirth; O99.824 Streptococcus B carrier state complicating childbirth; Z3A.39 39 weeks gestation of pregnancy; Z37.0 Single live birth; O99.214 Obesity complicating childbirth; N13.2 Hydronephrosis with renal and ureteral calculous obstruction; Z20.822 Contact with and (suspected) exposure to COVID-19
CPT/HCPCS: 01967; 36415; 51703; 59025; 59409; 80053; 82570; 82803; 84156; 84550; 85014; 85018; 85027; 86592; 86850; 86900; 86901; A9270-GY; J0290; J0595; J2590; J7120; U0002

== ENCOUNTER 2023-04-24 13:27 | Emergency (ER) | payer BC ==
[2023-04-24 13:50] LABS: APPEARANCE,URINE CLEAR; BILIRUBIN,URINE NEGATIVE (NEGATIVE); COLOR,URINE YELLOW; GLUCOSE,URINE NEGATIVE (NEGATIVE); KETONES,URINE NEGATIVE (NEGATIVE); LEUKOCYTE ESTERASE,URINE NEGATIVE (NEGATIVE); NITRITE,URINE NEGATIVE (NEGATIVE); OCCULT BLOOD,URINE NEGATIVE (NEGATIVE); PH,URINE 6.5 (5.0-8.0); PROTEIN,URINE NEGATIVE (NEGATIVE); UROBILINOGEN,URINE 0.2 EU/dL (<2.0)
[2023-04-24] MEDS ORDERED: Sodium Chloride 0.9% 2.5 ML Syringe FLUSH PRN (14:17)
[2023-04-24] MEDS ORDERED: Sodium Chloride 0.9% 10 ML Syringe FLUSH PRN (14:17)
[2023-04-24] MEDS ORDERED: Sodium Chloride 0.9% 1,000 ML IV ONE (14:17)
[2023-04-24] MEDS ORDERED: HYDROmorphone 1 MG/ML Syringe IVPUSH ONE (14:17)
[2023-04-24] MEDS ORDERED: Ondansetron 4 MG/2 ML SDV IVPUSH ONE ×2 (14:17→16:09)
[2023-04-24 14:28] LABS: BASOPHILS PERCENT AUTO 0.3 % (0.0-1.5); EOSINOPHILS ABSOLUTE AUTO 0.1 K/uL (0.0-0.7); EOSINOPHILS PERCENT AUTO 1.8 % (0.0-7.0); HEMATOCRIT 43.2 % (36.0-46.0); HEMOGLOBIN 14.6 g/dL (12.0-16.0); LYMPHOCYTES ABSOLUTE AUTO 1.3 K/uL (0.6-2.4); MEAN CORPUSCULAR HEMOGLOBIN 35.2 pg (27.0-32.0); MEAN CORPUSCULAR HGB CONC 33.8 g/dL (31.0-37.0); MEAN CORPUSCULAR VOLUME 104.1 fL (80.0-98.0); MONOCYTES PERCENT AUTO 12.7 % (0.0-15.0); NEUTROPHILS ABSOLUTE AUTO 5.3 K/uL (1.4-5.7); NEUTROPHILS PERCENT AUTO 68.2 % (48.0-80.0); PLATELET COUNT,PLT 221 K/uL (150-400); RED BLOOD CELL COUNT 4.15 M/uL (4.30-5.90); WHITE BLOOD CELL COUNT,WBC 7.77 K/uL (4.0-11.0)
[2023-04-24 14:41] LABS: A/G RATIO 0.9 (0.9-1.6); CALCIUM 9.6 mg/dL (8.5-10.1); CARBON DIOXIDE,CO2 24.2 mmol/L (21.0-32.0); CREATININE 0.8 mg/dL (0.6-1.0); EST CRCL DRUG DOSING (CG) 85.56 mL/min; POTASSIUM,K 4.1 mmol/L (3.5-5.1); PROTEIN TOTAL,TP 8.3 g/dL (6.4-8.2)
[2023-04-24] MEDS ORDERED: HYDROmorphone 2 MG/ML Syringe IVPUSH ONE (15:27)
[2023-04-24] MEDS ORDERED: Iopamidol 755 MG/ML 500 ML Multipack Bottle IVPUSH ONE (16:38)
[2023-04-24 16:54] VITALS: BP 137/92; PULSE 60
== END 2023-04-24 17:40 | disposition home or self-care (01) ==
LOC: MW.ED 13:27
DX: R10.9 Unspecified abdominal pain (principal); R50.9 Fever, unspecified; R30.0 Dysuria; R11.0 Nausea
CPT/HCPCS: 36415; 74177; 76770; 80053; 81003; 81025; 85025; 96361; 96374; 96375; 96376; 99284; J1170; J2405; J3490; J7030; Q9967

== ENCOUNTER 2024-10-21 10:10 | Day surgery (SDC) | payer BC, OTHER ==
[~2024-10-21 10:10] MED LIST: Sodium Chloride 0.9% 10 ML Syringe FLUSH PRN; Sodium Chloride 0.9% 2.5 ML Syringe FLUSH PRN; Sodium Chloride 0.9% 20 ML SDV IV PRN
[2024-10-21] MEDS: Lactated Ringers 1,000 ML IV SCH (10:50)
[2024-10-21] MEDS: Midazolam 1 MG/ML 2 ML SDV IVPUSH ONE (10:55)
[2024-10-21] MEDS ORDERED: Lidocaine 2% 5 ML SDV ONE (11:24)
[2024-10-21] MEDS ORDERED: propofoL 500 MG/50 ML 50 ML ONE (11:24)
[2024-10-21] MEDS ORDERED: Propofol 200 MG/20 ML SDV ONE (11:39)
[2024-10-21 13:06] VITALS: BP 120/67; PULSE 79
== END 2024-10-21 12:30 | disposition home or self-care (01) ==
LOC: MW.SDS 10:10
PROVIDERS: ATTEND Surgery
DX: K29.50 Unspecified chronic gastritis without bleeding (principal); K21.9 Gastro-esophageal reflux disease without esophagitis; K44.9 Diaphragmatic hernia without obstruction or gangrene; E66.9 Obesity, unspecified; I10 Essential (primary) hypertension; Z88.8 Allergy status to other drugs, medicaments and biological substances; Z91.018 Allergy to other foods; Z79.899 Other long term (current) drug therapy; Z87.891 Personal history of nicotine dependence; Z68.29 Body mass index [BMI] 29.0-29.9, adult
CPT/HCPCS: 43239; 45380; 81025; J2704; J7120; J3490

== ENCOUNTER 2025-01-04 14:17 | Emergency (ER) | payer OTHER ==
[2025-01-04 14:55] LABS: BASOPHILS ABSOLUTE AUTO 0.06 K/uL (0.00-0.20); BASOPHILS PERCENT AUTO 0.8 % (0.0-1.0); EOSINOPHILS ABSOLUTE AUTO 0.31 K/uL (0.00-0.45); EOSINOPHILS PERCENT AUTO 4.1 % (0.0-6.0); HEMATOCRIT 39.5 % (37.0-47.0); HEMOGLOBIN 13.3 g/dL (12.0-16.0); IMMATURE GRAN ABSOLUTE AUTO 0.02 K/uL (0.00-0.05); IMMATURE GRAN PERCENT AUTO 0.3 % (0.0-0.4); LYMPHOCYTES ABSOLUTE AUTO 1.93 K/uL (1.00-4.80); LYMPHOCYTES PERCENT AUTO 25.5 % (24.0-44.0); MEAN CORPUSCULAR HEMOGLOBIN 33.2 pg (28.0-32.0); MEAN CORPUSCULAR HGB CONC 33.7 g/dL (32.0-36.0); MEAN CORPUSCULAR VOLUME 98.5 fL (83.0-99.0); MEAN PLATELET VOLUME 10.1 fL (9.4-12.3); MONOCYTES ABSOLUTE AUTO 0.71 K/uL (0.00-0.80); MONOCYTES PERCENT AUTO 9.4 % (0.0-8.0); NEUTROPHILS ABSOLUTE AUTO 4.54 K/uL (1.80-7.70); NEUTROPHILS PERCENT AUTO 59.9 % (41.0-71.0); PLATELET COUNT,PLT 289 K/uL (150-400); RED BLOOD CELL COUNT 4.01 M/uL (4.10-5.30); WHITE BLOOD CELL COUNT,WBC 7.57 K/uL (3.9-11.3)
[2025-01-04] MEDS: Sodium Chloride 0.9% 1,000 ML IV ONE (15:00)
[2025-01-04] MEDS: HYDROmorphone 1 MG/ML Syringe IVPUSH ONE (15:04)
[2025-01-04] MEDS: Ondansetron 4 MG/2 ML SDV IVPUSH ONE (15:04)
[2025-01-04 15:13] LABS: APPEARANCE,URINE CLEAR; BILIRUBIN,URINE NEGATIVE (NEGATIVE); COLOR,URINE YELLOW; GLUCOSE,URINE NEGATIVE (NEGATIVE); KETONES,URINE NEGATIVE (NEGATIVE); LEUKOCYTE ESTERASE,URINE NEGATIVE (NEGATIVE); NITRITE,URINE NEGATIVE (NEGATIVE); OCCULT BLOOD,URINE NEGATIVE (NEGATIVE); PH,URINE 6.5 (5.0-8.0); PROTEIN,URINE NEGATIVE (NEGATIVE); UROBILINOGEN,URINE 0.2 EU/dL (<2.0)
[2025-01-04 15:17] LABS: A/G RATIO 0.6 (0.9-1.6); BILIRUBIN TOTAL 0.6 mg/dL (0.2-1.0); CALCIUM 8.8 mg/dL (8.5-10.1); CREATININE 0.8 mg/dL (0.6-1.0); EST CRCL DRUG DOSING (CG) 80.42 mL/min; POTASSIUM,K 3.5 mmol/L (3.5-5.1); PROTEIN TOTAL,TP 7.7 g/dL (6.4-8.2)
[2025-01-04] MEDS: Acetaminophen/HYDROcodone 325-5 MG Tab PO ONE (15:46)
[2025-01-04 16:00] VITALS: BP 126/75; PULSE 64
== END 2025-01-04 16:00 | disposition home or self-care (01) ==
LOC: MW.ED 14:17
DX: G89.18 Other acute postprocedural pain (principal); R10.9 Unspecified abdominal pain; I10 Essential (primary) hypertension; E66.9 Obesity, unspecified; Z79.899 Other long term (current) drug therapy; Z88.1 Allergy status to other antibiotic agents; Z88.6 Allergy status to analgesic agent; Z91.09 Other allergy status, other than to drugs and biological substances; Z91.018 Allergy to other foods; Z75.8 Other problems related to medical facilities and other health care; Z90.49 Acquired absence of other specified parts of digestive tract
CPT/HCPCS: 36415; 80053; 81003; 83690; 84703; 85025; 87428; 96361; 96374; 96375; 99283; A9270; J1171; J2405; J7030